=== PATIENT | female | born 1940 ===

== ENCOUNTER 2018-03-28 03:31 | Inpatient (IN) | payer OTHER, MEDICAID ==
[2018-03-28 03:44] VITALS: BMI 29.2
[2018-03-28] MEDS ORDERED: Labetalol 25mg/5ml Syringe IV STA (03:44)
[2018-03-28] MEDS ORDERED: Aspirin 325 mg EC Tablets PO STA (03:44)
[2018-03-28] MEDS ORDERED: Nitroglycerin 2% Ointment Foilpak UD TOP STA (03:44)
[2018-03-28] MEDS ORDERED: Nitroglycerin 2% Ointment Foilpak UD TOP ONE (03:47)
[2018-03-28] MEDS ORDERED: Labetalol 25mg/5ml Syringe ONE (03:47)
[2018-03-28 04:00] LABS: BASO # 0.1 K/uL (0.0-0.2); BASO % 1.1 % (0.0-2.0); EOS # 0.2 K/uL (0.0-0.7); EOS % 1.8 % (0.0-4.0); HEMOGLOBIN 11.2 g/dL (11.0-16.0); LYMPH # 3.4 K/uL (1.0-4.3); LYMPH % 26.9 % (20.0-40.0); MEAN CELL VOLUME 84.9 fL (81.0-99.0); MEAN CORPUSCULAR HEMOGLOBIN 27.8 pg (27.0-31.0); MEAN CORPUSCULAR HGB CONC 32.7 g/dL (33.0-37.0); MEAN PLATELET VOLUME 9.4 fL (7.2-11.7); MONO # 0.8 K/uL (0.0-0.8); MONO % 6.4 % (0.0-10.0); NEUT % 63.8 % (50.0-75.0); NRBC % 0.1 % (0.0-2.0); RBC 4.03 Mil/uL (3.80-5.20); WHITE BLOOD COUNT 12.6 K/uL (4.8-10.8)
[2018-03-28 04:04] LABS: INR 1.1; PROTHROMBIN TIME 12.1 SECONDS (9.7-12.2)
[2018-03-28 04:20] LABS: TROPONIN I 0.044 ng/mL (0.00-0.120)
--- NOTE | 2018-03-28 05:04 | C.PDOC ---
History Of Present Illness 77 year old female is brought in to the ED by EMS for evaluation of chest pressure, SOB. Patient immigrated from [place] last year and lost all medical follow up. Patient has a history of CABG unknown vessels. Patient has been getting medication refills by unknown means. Patient denies fever, chills, nausea, vomit, diarrhea, rash. Time Seen by Provider: 03/28/18 03:41 Chief Complaint (Nursing): Respiratory Distress History Per: Patient, EMS History/Exam Limitations: no limitations Onset/Duration Of Symptoms: Hrs Current Symptoms Are (Timing): Still Present Initiating Event: Upper Respiratory Illness Quality: Tightness Current Respiratory Medications: See Home Med List Recent travel outside of the [place]: No Additional History Per: Patient, EMS Past Medical History Reviewed: Historical Data, Nursing Documentation, Vital Signs Vital Signs: Last Vital Signs Temp 98.2 F 03/28/18 04:02 Pulse 65 03/28/18 05:14 Resp 16 03/28/18 05:14 BP 152/64 H 03/28/18 05:14 Pulse Ox 100 03/28/18 05:14 - Medical History PMH: HTN Denies: Chronic Kidney Disease Surgical History: CABG, Cholecystectomy Family History: States: Unknown Family Hx - Social History Hx Alcohol Use: No Hx Substance Use: No Review Of Systems Constitutional: Negative for: Fever, Chills Cardiovascular: Positive for: Chest Pain. Negative for: Palpitations Respiratory: Positive for: Shortness of Breath. Negative for: Cough Gastrointestinal: Negative for: Nausea, Vomiting, Abdominal Pain Skin: Negative for: Rash Neurological: Negative for: Weakness, Numbness Physical Exam - Physical Exam Appears: Non-toxic, No Acute Distress Skin: Normal Color, Warm, Dry Head: Atraumatic, Normacephalic Eye(s): bilateral: Normal Inspection Oral Mucosa: Moist Neck: Normal ROM, Supple Chest: Symmetrical Cardiovascular: Rhythm Regular, Murmur (systolic), No JVD Respiratory: Normal Breath Sounds, No Rales, No Rhonchi, No Wheezing Gastrointestinal/Abdominal: Soft, No Tenderness, No Guarding, No Rebound Back: No Paraspinal Tenderness Extremity: Normal ROM, No Tenderness, Pedal Edema (trace ), Capillary Refill (< 2 seconds) Pulses: Left Dorsalis Pedis: Normal, Right Dorsalis Pedis: Normal Neurological/Psych: Oriented x3, Normal Speech, Normal Cognition Gait: Steady ED Course And Treatment - Laboratory Results Result Diagrams: 03/28/18 03:55 03/28/18 03:55 Lab Interpretation: Abnormal (trop neg. bnp [id number]) ECG: Interpreted By Me ECG Rhythm: Sinus Rhythm, ST/T Changes (st depressions 4v-v6) ECG Interpretation: Abnormal Rate From EC (BPM) O2 Sat by Pulse Oximetry: 100 (ON RA) Pulse Ox Interpretation: Normal - Radiology CXR Interpretation: Yes: Cardiomegaly, Other (+CHF) Reevaluation Time: 05:02 Reassessment Condition: Improved - Physician Consult Information Outcome Of Conversation: 0500: d/w Dr. Menendez, Medicine Quality Director- ok for adm Medical Decision Making Medical Decision Making: hypertensive urgency vs uncontrolled htn, flash pulm edema, euvolemic CHF CABG lost to f/u since emigrating to [place] 1 yr ago. Disposition Doctor Will See Patient In The: Hospital Counseled Patient/Family Regarding: Studies Performed, Diagnosis - Disposition Disposition: HOSPITALIZED Disposition Time: 05:04 Condition: GOOD Forms: [employer] (Cameroonian) - Clinical Impression Clinical Impression: Congestive heart failure, Uncontrolled hypertension - Scribe Statement The provider has reviewed the documentation as recorded by the Scribe Ced Gerard All medical record entries made by the Scribe were at my direction and personally dictated by me. I have reviewed the chart and agree that the record accurately reflects my personal performance of the history, physical exam, medical decision making, and the department course for this patient. I have also personally directed, reviewed, and agree with the discharge instructions and disposition.
[2018-03-28 06:22] LABS: HDL CHOLESTEROL 28 mg/dL (30-70)
[2018-03-28 06:32] LABS: LDL CHOLESTEROL 148 mg/dL (0-129)
[2018-03-28] MEDS ORDERED: (Novolog) Insulin Aspart, Recombinant 100 u/ml 10 ml vial SC SCH (07:30)
--- NOTE | 2018-03-28 07:54 | RAD ---
Date of service: 03/28/2018 PROCEDURE: CHEST RADIOGRAPH, 1 VIEW HISTORY: SOB COMPARISON: None available. FINDINGS: LUNGS: No consolidation appreciated. Pulmonary vascular congestion-moderate PLEURA: No pneumothorax or pleural fluid seen. CARDIOVASCULAR: Cardiomegaly. Moderate pulmonary venous congestion. OSSEOUS STRUCTURES: Midline sternotomy. . VISUALIZED UPPER ABDOMEN: Normal. OTHER FINDINGS: None. IMPRESSION: CHF
[2018-03-28] MEDS: (Novolog) Insulin Aspart, Recombinant 100 u/ml 10 ml vial SC SCH ×4 (09:24→21:15)
[2018-03-28] MEDS ORDERED: Pantoprazole 20 mg EC Tab PO SCH (10:00)
[2018-03-28] MEDS ORDERED: Enoxaparin 40 mg Syringe SC SCH (10:00)
[2018-03-28 10:02] LABS: SQUAMOUS EPITHIAL < 1 /hpf (0-5); URINE BACTERIA RARE (<OCC); URINE BILIRUBIN NEGATIVE (NEGATIVE); URINE CLARITY Hazy (Clear); URINE COLOR Straw (YELLOW); URINE GLUCOSE (UA) NORMAL (Normal); URINE LEUKOCYTE ESTERASE NEG Leu/uL (Negative); URINE PROTEIN NEGATIVE (NEGATIVE); URINE UROBILINOGEN NORMAL mg/dL (0.2-1.0)
[2018-03-28 10:03] LABS: URINE BLOOD TRACE (NEGATIVE)
[2018-03-28] MEDS: Enoxaparin 30 mg Syringe SC SCH (14:44)
[2018-03-28 15:39] LABS: CK-MB 2.65 ng/mL (0.0-3.38)
[2018-03-28 15:59] LABS: TROPONIN I 0.736 ng/mL (0.00-0.120)
[2018-03-28 20:51] LABS: CK-MB 2.35 ng/mL (0.0-3.38); TROPONIN I 0.825 ng/mL (0.00-0.120)
--- NOTE | 2018-03-28 23:50 | CP.PCM.HP ---
History of Present Illness - History of Present Illness History of Present Illness: CC: chest pain History Of Present Illness 77 year old female with h/o HTN, Hyperlipidemia, CAD and CABG in past recently moved from [facility] is brought in to the ED by EMS for evaluation of chest pressure, SOB. Patient immigrated from [place] last year and lost all medical follow up. Patient has a history of CABG unknown vessels. Patient has been getting medication refills by unknown means. Patient denies fever, chills, nausea, vomit, diarrhea, rash. Present on Admission - Present on Admission Any Indicators Present on Admission: Yes Review of Systems - Review of Systems Systems not reviewed;Unavailable: Acuity of Condition - Constitutional Constitutional: Fatigue, Lethargy, Weakness - EENT Eyes: absent: As Per HPI, Blind Spots, Blurred Vision, Change in Vision, Decreased Night Vision, Diplopia, Discharge, Dry Eye, Exophthalmos, Floaters, Irritation, Itchy Eyes, Loss of Peripheral Vision, Pain, Photophobia, Requires Corrective Lenses, Sees Flashes, Spots in Vision, Tunnel Vision, Other Visual Disturbances, Loss of Vision, Other Nose/Mouth/Throat: absent: As Per HPI, Epistaxis, Nasal Congestion, Nasal Discharge, Nasal Obstruction, Nasal Trauma, Nose Pain, Post Nasal Drip, Sinus Pain, Sinus Pressure, Bleeding Gums, Change in Voice, Dental Pain, Dry Mouth, Dysphagia, Halitosis, Hoarsness, Lip Swelling, Mouth Lesions, Mouth Pain, Odynophagia, Sore Throat, Throat Swelling, Tongue Swelling, Facial Pain, Neck Pain, Neck Mass, Other - Cardiovascular Cardiovascular: Chest Pain, Orthopnea, Palpitations, Paroxysmal Nocturnal Dyspnea - Gastrointestinal Gastrointestinal: absent: As Per HPI, Abdominal Pain, Belching, Bloating, Change in Bowel Habits, Change in Stool Character, Coffee Ground Emesis, Constipation, Cramping, Diarrhea, Dyspepsia, Dysphagia, Early Satiety, Excessive Flatus, Fecal Incontinence, Heartburn, Hematemesis, Hematochezia, Loose Stools, Melena, Nausea, Odynophagia, Temesmus, Vomiting, Other - Genitourinary Genitourinary: absent: As Per HPI, Change in Urinary Stream, Difficulty Urinating, Dysuria, Flank Pain, Hematuria, Pyuria, Nocturia, Urinary Incontinence, Urinary Frequency, Urinary Hesitance, Urinary Urgency, Voiding Freq/Small Amts, Freq UTI, Hx Renal/Bladder Calculi, Hx /Renal Surgery, Bladder Distension, Other Past Patient History - Past Medical History & Family History Past Medical History?: Yes - Past Social History Smoking Status: Never Smoked - CARDIAC Hx Hypertension: Yes - PULMONARY Hx Respiratory Disorders: No - NEUROLOGICAL Hx Neurological Disorder: No - HEENT Hx HEENT Problems: No - RENAL Hx Chronic Kidney Disease: No - ENDOCRINE/METABOLIC Hx Endocrine Disorders: No Hx Diabetes Mellitus Type 2: Yes - HEMATOLOGICAL/ONCOLOGICAL Hx Blood Disorders: No - INTEGUMENTARY Hx Dermatological Problems: No - MUSCULOSKELETAL/RHEUMATOLOGICAL Hx Falls: No - GASTROINTESTINAL Hx Gastrointestinal Disorders: No - GENITOURINARY/GYNECOLOGICAL Hx Genitourinary Disorders: No - PSYCHIATRIC Hx Substance Use: No - SURGICAL HISTORY Hx Cholecystectomy: Yes Hx Coronary Artery Bypass Graft: Yes - ANESTHESIA Hx Anesthesia: Yes Hx Anesthesia Reactions: No Meds Allergies/Adverse Reactions: Allergies Allergy/AdvReac Type Severity Reaction Status Date / Time codeine Allergy Verified 03/28/18 03:54 Physical Exam - Constitutional Appears: No Acute Distress - Eye Exam Eye Exam: EOMI, Normal appearance, PERRL Pupil Exam: NORMAL ACCOMODATION, PERRL - ENT Exam ENT Exam: Mucous Membranes Moist, Normal Exam - Respiratory Exam Respiratory Exam: Clear to Auscultation Bilateral, NORMAL BREATHING PATTERN - Cardiovascular Exam Cardiovascular Exam: REGULAR RHYTHM, +S1, +S2 Additional comments: s3 positive - GI/Abdominal Exam GI & Abdominal Exam: Normal Bowel Sounds, Soft. absent: Tenderness Results - Vital Signs Recent Vital Signs: Last Vital Signs Temp 97.4 F L 03/28/18 16:00 Pulse 60 03/28/18 18:15 Resp 20 03/28/18 18:15 BP 143/98 H 03/28/18 18:15 Pulse Ox 100 03/28/18 18:15 - Labs Result Diagrams: 03/28/18 03:55 03/28/18 03:55 Labs: Laboratory Results - last 24 hr 03/28/18 03/28/18 03/28/18 03:41 03:55 03:55 WBC 12.6 H RBC 4.03 Hgb 11.2 Hct 34.2 MCV 84.9 MCH 27.8 MCHC 32.7 L RDW 16.0 H Plt Count 294 MPV 9.4 Neut % (Auto) 63.8 Lymph % (Auto) 26.9 [place] % (Auto) 6.4 Eos % (Auto) 1.8 Baso % (Auto) 1.1 Neut # (Auto) 8.0 H Lymph # (Auto) 3.4 [place] # (Auto) 0.8 Eos # (Auto) 0.2 Baso # (Auto) 0.1 PT 12.1 INR 1.1 APTT 33 Sodium Potassium Chloride Carbon Dioxide Anion Gap BUN Creatinine Est GFR ( Amer) Est GFR (Non-Af Amer) POC Glucose (mg/dL) 170 H Random Glucose Calcium Total Bilirubin AST ALT Alkaline Phosphatase Total Creatine Kinase CK-MB (Mass) Troponin I NT-Pro-B Natriuret Pep Total Protein Albumin Globulin Albumin/Globulin Ratio Triglycerides Cholesterol LDL Cholesterol Direct HDL Cholesterol Urine Color Urine Clarity Urine pH Ur Specific [place] Urine Protein Urine Glucose (UA) Urine Ketones Urine Blood Urine Nitrate Urine Bilirubin Urine Urobilinogen Ur Leukocyte Esterase Urine WBC (Auto) Urine RBC (Auto) Ur Squamous Epith Cells Urine Bacteria 03/28/18 03/28/18 03/28/18 03:55 05:59 08:07 WBC RBC Hgb Hct MCV MCH MCHC RDW Plt Count MPV Neut % (Auto) Lymph % (Auto) [place] % (Auto) Eos % (Auto) Baso % (Auto) Neut # (Auto) Lymph # (Auto) [place] # (Auto) Eos # (Auto) Baso # (Auto) PT INR APTT Sodium 141 Potassium 4.2 Chloride 101 Carbon Dioxide 27 Anion Gap 17 BUN 20 H Creatinine 1.9 H Est GFR ( Amer) 31 Est GFR (Non-Af Amer) 26 POC Glucose (mg/dL) 189 H Random Glucose 187 H Calcium 9.0 Total Bilirubin 0.5 AST 23 ALT 13 Alkaline Phosphatase 85 Total Creatine Kinase CK-MB (Mass) Troponin I 0.0440 NT-Pro-B Natriuret Pep 6710 H Total Protein 8.1 Albumin 4.0 Globulin 4.0 H Albumin/Globulin Ratio 1.0 Triglycerides 102 Cholesterol 205 H LDL Cholesterol Direct 148 H HDL Cholesterol 28 L Urine Color Urine Clarity Urine pH Ur Specific [place] Urine Protein Urine Glucose (UA) Urine Ketones Urine Blood Urine Nitrate Urine Bilirubin Urine Urobilinogen Ur Leukocyte Esterase Urine WBC (Auto) Urine RBC (Auto) Ur Squamous Epith Cells Urine Bacteria 03/28/18 03/28/18 03/28/18 09:53 11:56 14:44 WBC RBC Hgb Hct MCV MCH MCHC RDW Plt Count MPV Neut % (Auto) Lymph % (Auto) [place] % (Auto) Eos % (Auto) Baso % (Auto) Neut # (Auto) Lymph # (Auto) [place] # (Auto) Eos # (Auto) Baso # (Auto) PT INR APTT Sodium Potassium Chloride Carbon Dioxide Anion Gap BUN Creatinine Est GFR ( Amer) Est GFR (Non-Af Amer) POC Glucose (mg/dL) 272 H Random Glucose Calcium Total Bilirubin AST ALT Alkaline Phosphatase Total Creatine Kinase 70 CK-MB (Mass) 2.65 Troponin I 0.7360 H* NT-Pro-B Natriuret Pep Total Protein Albumin Globulin Albumin/Globulin Ratio Triglycerides Cholesterol LDL Cholesterol Direct HDL Cholesterol Urine Color Straw Urine Clarity Hazy Urine pH 5.0 Ur Specific [place] 1.004 Urine Protein Negative Urine Glucose (UA) Normal Urine Ketones Negative Urine Blood Trace H Urine Nitrate Negative Urine Bilirubin Negative Urine Urobilinogen Normal Ur Leukocyte Esterase Neg Urine WBC (Auto) 2 Urine RBC (Auto) 10 H Ur Squamous Epith Cells < 1 Urine Bacteria Rare 03/28/18 03/28/18 03/28/18 16:13 20:09 21:13 WBC RBC Hgb Hct MCV MCH MCHC RDW Plt Count MPV Neut % (Auto) Lymph % (Auto) [place] % (Auto) Eos % (Auto) Baso % (Auto) Neut # (Auto) Lymph # (Auto) [place] # (Auto) Eos # (Auto) Baso # (Auto) PT INR APTT Sodium Potassium Chloride Carbon Dioxide Anion Gap BUN Creatinine Est GFR ( Amer) Est GFR (Non-Af Amer) POC Glucose (mg/dL) 227 H 109 Random Glucose Calcium Total Bilirubin AST ALT Alkaline Phosphatase Total Creatine Kinase 73 CK-MB (Mass) 2.35 Troponin I 0.8250 H* NT-Pro-B Natriuret Pep Total Protein Albumin Globulin Albumin/Globulin Ratio Triglycerides Cholesterol LDL Cholesterol Direct HDL Cholesterol Urine Color Urine Clarity Urine pH Ur Specific [place] Urine Protein Urine Glucose (UA) Urine Ketones Urine Blood Urine Nitrate Urine Bilirubin Urine Urobilinogen Ur Leukocyte Esterase Urine WBC (Auto) Urine RBC (Auto) Ur Squamous Epith Cells Urine Bacteria Assessment & Plan (1) Acute [place] Assessment and Plan: positive acrdiac enzymes plavix, aspirin cardio eval Status: Acute (2) Congestive heart failure Status: Acute (3) Uncontrolled hypertension Status: Acute
[2018-03-29 06:27] LABS: BASO % 0.3 % (0.0-2.0); EOS # 0.4 K/uL (0.0-0.7); LYMPH # 2.5 K/uL (1.0-4.3); LYMPH % 26.2 % (20.0-40.0); MEAN CELL VOLUME 84.3 fL (81.0-99.0); MEAN CORPUSCULAR HGB CONC 33.2 g/dL (33.0-37.0); MEAN PLATELET VOLUME 9.5 fL (7.2-11.7); MONO # 0.9 K/uL (0.0-0.8); MONO % 9.1 % (0.0-10.0); NEUT # 5.7 K/uL (1.8-7.0); NEUT % 60.4 % (50.0-75.0); RBC 3.57 Mil/uL (3.80-5.20); RED CELL DISTRIBUTION WIDTH 16.1 % (11.5-14.5); WHITE BLOOD COUNT 9.5 K/uL (4.8-10.8)
[2018-03-29 06:59] LABS: ALB/GLOB RATIO 1.1 (1.0-2.1); ALBUMIN 3.5 g/dL (3.5-5.0); CALCIUM 8.8 mg/dl (8.6-10.4); CK-MB 1.57 ng/mL (0.0-3.38); TROPONIN I 0.638 ng/mL (0.00-0.120)
[2018-03-29] MEDS: (Novolog) Insulin Aspart, Recombinant 100 u/ml 10 ml vial SC SCH ×4 (08:18→21:47)
[2018-03-29] MEDS: Enoxaparin 30 mg Syringe SC SCH (09:08)
--- NOTE | 2018-03-29 12:08 | CARD ---
APPROVED REPORT Date of service: 03/28/2018 EKG Measurement Heart [id number] <Conclusion> Normal sinus rhythm ST & T wave abnormality, consider lateral ischemia Abnormal ECG
--- NOTE | 2018-03-29 12:12 | CP.PCM.CON ---
History of Present Illness - History of Present Illness History of Present Illness: 77 year old female with h/o HTN, Hyperlipidemia, CAD and CABG in past recently moved from [facility] is brought in to the ED by EMS for evaluation of chest pressure, SOB. Patient immigrated from [place] last year and lost all medical follow up. Patient has a history of CABG unknown vessels. Patient has been getting medication refills by unknown means. Patient denies fever, chills, nausea, vomit, diarrhea, rash. In the past patient also had STENT placed but date and vessel is not clear. Sittin in bed without any distress, Review of Systems - Constitutional Constitutional: As Per HPI - EENT Eyes: As Per HPI - Cardiovascular Cardiovascular: As Per HPI - Respiratory Respiratory: As Per HPI - Gastrointestinal Gastrointestinal: As Per HPI - Neurological Neurological: As Per HPI Past Patient History - Past Medical History & Family History Past Medical History?: Yes - Past Social History Smoking Status: Never Smoked - CARDIAC Hx Hypertension: Yes - PULMONARY Hx Respiratory Disorders: No - NEUROLOGICAL Hx Neurological Disorder: No - HEENT Hx HEENT Problems: No - RENAL Hx Chronic Kidney Disease: No - ENDOCRINE/METABOLIC Hx Endocrine Disorders: No Hx Diabetes Mellitus Type 2: Yes - HEMATOLOGICAL/ONCOLOGICAL Hx Blood Disorders: No - INTEGUMENTARY Hx Dermatological Problems: No - MUSCULOSKELETAL/RHEUMATOLOGICAL Hx Falls: No - GASTROINTESTINAL Hx Gastrointestinal Disorders: No - GENITOURINARY/GYNECOLOGICAL Hx Genitourinary Disorders: No - PSYCHIATRIC Hx Substance Use: No - SURGICAL HISTORY Hx Cholecystectomy: Yes Hx Coronary Artery Bypass Graft: Yes - ANESTHESIA Hx Anesthesia: Yes Hx Anesthesia Reactions: No Meds Allergies/Adverse Reactions: Allergies Allergy/AdvReac Type Severity Reaction Status Date / Time codeine Allergy Verified 03/28/18 03:54 - Medications Medications: Current Medications Acetaminophen (Tylenol 325mg Tab) 650 mg PO Q6 PRN PRN Reason: LEG CRAMPS Last Admin: 03/28/18 18:35 Dose: 650 mg Aspirin (Aspirin) 325 mg PO DAILY [facility] Last Admin: 03/29/18 09:08 Dose: 325 mg Enoxaparin Sodium (Lovenox) 30 mg SC DAILY [facility] Last Admin: 03/29/18 09:08 Dose: 30 mg Famotidine (Pepcid) 20 mg PO DAILY [facility] Last Admin: 03/29/18 09:08 Dose: 20 mg Furosemide (Lasix) 40 mg IVP DAILY [facility] Last Admin: 03/29/18 09:07 Dose: 40 mg Insulin Aspart (Novolog) 0 unit SC [facility] PRN Reason: Protocol Last Admin: 03/29/18 08:18 Dose: 2 u Losartan Potassium (Cozaar) 50 mg PO DAILY [facility] Last Admin: 03/29/18 09:08 Dose: 50 mg Metoprolol Tartrate (Lopressor) 25 mg PO DAILY [facility] Last Admin: 03/29/18 09:08 Dose: 25 mg Rosuvastatin Calcium (Crestor) 10 mg PO [facility] Last Admin: 03/28/18 21:15 Dose: 10 mg Physical Exam - Head Exam Head Exam: NORMOCEPHALIC - Neck Exam Neck exam: Positive for: Normal Inspection - Respiratory Exam Respiratory Exam: NORMAL BREATHING PATTERN - Cardiovascular Exam Cardiovascular Exam: REGULAR RHYTHM - GI/Abdominal Exam GI & Abdominal Exam: Soft - Extremities Exam Extremities exam: Positive for: normal inspection - Neurological Exam Neurological exam: Alert, Oriented x3 Results - Vital Signs Recent Vital Signs: Last Vital Signs Temp 97.9 F 03/29/18 08:00 Pulse 63 03/29/18 10:00 Resp 16 03/29/18 08:00 BP 161/72 H 03/29/18 09:08 Pulse Ox 100 03/29/18 08:00 - Labs Result Diagrams: 03/29/18 06:18 03/29/18 06:18 Labs: Laboratory Results - last 24 hr 03/28/18 03/28/18 03/28/18 14:44 16:13 20:09 WBC RBC Hgb Hct MCV MCH MCHC RDW Plt Count MPV Neut % (Auto) Lymph % (Auto) Leon % (Auto) Eos % (Auto) Baso % (Auto) Neut # (Auto) Lymph # (Auto) [place] # (Auto) Eos # (Auto) Baso # (Auto) Sodium Potassium Chloride Carbon Dioxide Anion Gap BUN Creatinine Est GFR ( Amer) Est GFR (Non-Af Amer) POC Glucose (mg/dL) 227 H Random Glucose Calcium Phosphorus Magnesium Total Bilirubin AST ALT Alkaline Phosphatase Total Creatine Kinase 70 73 CK-MB (Mass) 2.65 2.35 Troponin I 0.7360 H* 0.8250 H* Total Protein Albumin Globulin Albumin/Globulin Ratio 03/28/18 03/29/18 03/29/18 21:13 06:18 06:18 WBC 9.5 RBC 3.57 L Hgb 10.0 L Hct 30.1 L MCV 84.3 MCH 28.0 MCHC 33.2 RDW 16.1 H Plt Count 248 MPV 9.5 Neut % (Auto) 60.4 Lymph % (Auto) 26.2 Leon % (Auto) 9.1 Eos % (Auto) 4.0 Baso % (Auto) 0.3 Neut # (Auto) 5.7 Lymph # (Auto) 2.5 Leon # (Auto) 0.9 H Eos # (Auto) 0.4 Baso # (Auto) 0.0 Sodium 138 Potassium 4.6 Chloride 98 Carbon Dioxide 29 Anion Gap 15 BUN 26 H Creatinine 2.0 H Est GFR ( Amer) 29 Est GFR (Non-Af Amer) 24 POC Glucose (mg/dL) 109 Random Glucose 185 H Calcium 8.8 Phosphorus 4.1 Magnesium 2.1 Total Bilirubin 0.4 AST 14 D ALT 16 Alkaline Phosphatase 67 Total Creatine Kinase 53 CK-MB (Mass) 1.57 Troponin I 0.6380 H* Total Protein 6.8 Albumin 3.5 Globulin 3.3 Albumin/Globulin Ratio 1.1 03/29/18 08:01 WBC RBC Hgb Hct MCV MCH MCHC RDW Plt Count MPV Neut % (Auto) Lymph % (Auto) Leon % (Auto) Eos % (Auto) Baso % (Auto) Neut # (Auto) Lymph # (Auto) Leon # (Auto) Eos # (Auto) Baso # (Auto) Sodium Potassium Chloride Carbon Dioxide Anion Gap BUN Creatinine Est GFR ( Amer) Est GFR (Non-Af Amer) POC Glucose (mg/dL) 190 H Random Glucose Calcium Phosphorus Magnesium Total Bilirubin AST ALT Alkaline Phosphatase Total Creatine Kinase CK-MB (Mass) Troponin I Total Protein Albumin Globulin Albumin/Globulin Ratio Assessment & Plan (1) Acute [place] Assessment and Plan: Borderline troponin with renal insufficiency. Continue DAPT. Control BP. Will discuss with patient for further management. Status: Acute (2) Congestive heart failure Assessment and Plan: Most likely fluid overload. Echo preliminary, Mild LV systolic function. Watch for fluid overload. Fluid restriction to 1.5 L/D. D/C Lasix. Start HCTZ and Spironolactone. Status: Acute
--- NOTE | 2018-03-29 12:33 | CARD ---
APPROVED REPORT Date of service: 03/28/2018 EKG Measurement Heart [id number] <Conclusion> Normal sinus rhythm Possible Left atrial enlargement ST & T wave abnormality, consider lateral ischemia Abnormal ECG
--- NOTE | 2018-03-29 12:33 | CARD ---
APPROVED REPORT Date of service: 03/28/2018 EKG Measurement Heart [id number] 152P41 [id number] <Conclusion> Sinus bradycardia ST & T wave abnormality, lvhconsider lateral ischemia Abnormal ECG
--- NOTE | 2018-03-29 19:21 | CARD ---
APPROVED REPORT Date of service: 03/29/2018 EXAM: Two-dimensional and M-mode echocardiogram with Doppler and color Doppler. Other Information Quality : GoodRhythm : INDICATION POSITIVE TRONPONIN/ PA 2D DIMENSIONS IVSd1.5 (0.7-1.1cm)Aortic Root (2D)2.7 (2.0-3.7cm) LVDd5.1 (3.9-5.9cm)LVOT Diameter1.8 (1.8-2.4cm) PWd1.1 (0.7-1.1cm)LVDs4.2 (2.5-4.0cm) FS (%) 17.9 %LVEF (%)37.1 (>50%) M-Mode DIMENSIONS Left Atrium (MM)4.17 (2.5-4.0cm)IVSd0.85 (0.7-1.1cm) Aortic Root2.62 (2.2-3.7cm)LVDd5.89 (4.0-5.6cm) Aortic Cusp Exc.1.11 (1.5-2.0cm)PWd0.94 (0.7-1.1cm) FS (%) 14 %LVDs5.04 (2.0-3.8cm) LVEF (%)30 (>50%) Mitral Valve MV E Remvnqad489.0cm/sMV A Bpmbraqa71.0cm/sMV [id number] E/A ratio2.4MVA (PHT)1.93cm2 TDI E/Lateral E'0.0E/Medial E'0.0 Pulmonary Valve PV Peak Dyqzkprj67.2cm/sPV Peak Grad.4mmHg Tricuspid Valve TR Peak [id number]/sTR Peak Gr.53kzMyMGLF62vxLn <Conclusion> tds. poor window. lv & la is moderately dilated. mild to moderate concnetric lvh with overall lvef of 30-6-35%. inferoapical appears markedly hypokinetic.cad. moderate to severe degree of lv diastolic dysfunction. markedly increased la pressures. calcified mitral & aortic valve. 2-3 + mr,2 + tr with calculated pulmonary systolic pressures of 41 mm of hg,c/w mild pulmonary hypertension. normal size sclerotic aortic root. no pericardial effusion seen.
[2018-03-30 06:55] LABS: ALBUMIN 3.7 g/dL (3.5-5.0)
[2018-03-30 07:00] LABS: BASO % 0.3 % (0.0-2.0); EOS # 0.4 K/uL (0.0-0.7); EOS % 4.3 % (0.0-4.0); HEMOGLOBIN 10.6 g/dL (11.0-16.0); LYMPH # 2.5 K/uL (1.0-4.3); LYMPH % 24.6 % (20.0-40.0); MEAN CORPUSCULAR HEMOGLOBIN 27.4 pg (27.0-31.0); MEAN CORPUSCULAR HGB CONC 32.6 g/dL (33.0-37.0); MEAN PLATELET VOLUME 9.7 fL (7.2-11.7); MONO % 9.8 % (0.0-10.0); NEUT # 6.2 K/uL (1.8-7.0); NRBC % 0.3 % (0.0-2.0); RBC 3.87 Mil/uL (3.80-5.20); RED CELL DISTRIBUTION WIDTH 15.8 % (11.5-14.5); WHITE BLOOD COUNT 10.2 K/uL (4.8-10.8)
[2018-03-30] MEDS: (Novolog) Insulin Aspart, Recombinant 100 u/ml 10 ml vial SC SCH ×4 (08:01→21:54)
[2018-03-30] MEDS: Enoxaparin 30 mg Syringe SC SCH (09:31)
--- NOTE | 2018-03-30 15:06 | CP.PCM.PN ---
Subjective - Date & Time of Evaluation Date of Evaluation: 03/29/18 Time of Evaluation: 17:00 - Subjective Subjective: PT SEEN AND EXAMINED AT BEDSIDE Objective - Vital Signs/Intake and Output Vital Signs (last 24 hours): Temp Pulse Resp BP Pulse Ox 98.5 F 60 13 100/67 100 03/30/18 12:00 03/30/18 12:00 03/30/18 12:00 03/30/18 11:44 03/30/18 12:00 Intake and Output: 03/30/18 03/30/18 06:59 18:59 Intake Total 420 Output Total 650 Balance -230 - Medications Medications: Current Medications Acetaminophen (Tylenol 325mg Tab) 650 mg PO Q6 PRN PRN Reason: LEG CRAMPS Last Admin: 03/28/18 18:35 Dose: 650 mg Aspirin (Aspirin) 325 mg PO DAILY [facility] Last Admin: 03/30/18 09:31 Dose: 325 mg Clopidogrel Bisulfate (Plavix) 75 mg PO DAILY [facility] Last Admin: 03/30/18 09:31 Dose: 75 mg Enoxaparin Sodium (Lovenox) 30 mg SC DAILY [facility] Last Admin: 03/30/18 09:31 Dose: 30 mg Famotidine (Pepcid) 20 mg PO DAILY [facility] Last Admin: 03/30/18 09:31 Dose: 20 mg Hydrochlorothiazide (Microzide) 12.5 mg PO BID [facility] Last Admin: 03/30/18 09:31 Dose: 12.5 mg Insulin Aspart (Novolog) 0 unit SC ACHS [facility] PRN Reason: Protocol Last Admin: 03/30/18 12:00 Dose: 3 u Losartan Potassium (Cozaar) 50 mg PO DAILY [facility] Last Admin: 03/30/18 09:31 Dose: 50 mg Metoprolol Tartrate (Lopressor) 25 mg PO BID [facility] Last Admin: 03/30/18 09:26 Dose: Not Given Rosuvastatin Calcium (Crestor) 10 mg PO HS [facility] Last Admin: 03/29/18 21:49 Dose: 10 mg Spironolactone (Aldactone) 25 mg PO BID [facility] Last Admin: 03/30/18 09:31 Dose: 25 mg Zolpidem Tartrate (Ambien) 5 mg PO HS PRN PRN Reason: Insomnia Last Admin: 03/29/18 21:50 Dose: 5 mg - Labs Labs: 03/30/18 06:14 03/30/18 06:14 PT 12.1 SECONDS (9.7-12.2) 03/28/18 03:55 INR 1.1 03/28/18 03:55 APTT 33 SECONDS (21-34) 03/28/18 03:55 Assessment and Plan (1) Acute [place] Status: Acute (2) Congestive heart failure Status: Acute (3) Uncontrolled hypertension Status: Acute
--- NOTE | 2018-03-30 15:07 | CP.PCM.PN ---
Subjective - Date & Time of Evaluation Date of Evaluation: 03/29/18 Time of Evaluation: 18:00 - Subjective Subjective: PT seen and examined at bedside, Patient denies fever, chills, nausea, vomit, diarrhea, rash. In the past patient also had STENT placed but date and vessel is not clear. Objective - Vital Signs/Intake and Output Vital Signs (last 24 hours): Temp Pulse Resp BP Pulse Ox 98.5 F 60 13 100/67 100 03/30/18 12:00 03/30/18 12:00 03/30/18 12:00 03/30/18 11:44 03/30/18 12:00 Intake and Output: 03/30/18 03/30/18 06:59 18:59 Intake Total 420 Output Total 650 Balance -230 - Medications Medications: Current Medications Acetaminophen (Tylenol 325mg Tab) 650 mg PO Q6 PRN PRN Reason: LEG CRAMPS Last Admin: 03/28/18 18:35 Dose: 650 mg Aspirin (Aspirin) 325 mg PO DAILY [facility] Last Admin: 03/30/18 09:31 Dose: 325 mg Clopidogrel Bisulfate (Plavix) 75 mg PO DAILY [facility] Last Admin: 03/30/18 09:31 Dose: 75 mg Enoxaparin Sodium (Lovenox) 30 mg SC DAILY [facility] Last Admin: 03/30/18 09:31 Dose: 30 mg Famotidine (Pepcid) 20 mg PO DAILY [facility] Last Admin: 03/30/18 09:31 Dose: 20 mg Hydrochlorothiazide (Microzide) 12.5 mg PO BID [facility] Last Admin: 03/30/18 09:31 Dose: 12.5 mg Insulin Aspart (Novolog) 0 unit SC [facility] PRN Reason: Protocol Last Admin: 03/30/18 12:00 Dose: 3 u Losartan Potassium (Cozaar) 50 mg PO DAILY [facility] Last Admin: 03/30/18 09:31 Dose: 50 mg Metoprolol Tartrate (Lopressor) 25 mg PO BID [facility] Last Admin: 03/30/18 09:26 Dose: Not Given Rosuvastatin Calcium (Crestor) 10 mg PO HS [facility] Last Admin: 03/29/18 21:49 Dose: 10 mg Spironolactone (Aldactone) 25 mg PO BID [facility] Last Admin: 03/30/18 09:31 Dose: 25 mg Zolpidem Tartrate (Ambien) 5 mg PO HS PRN PRN Reason: Insomnia Last Admin: 03/29/18 21:50 Dose: 5 mg - Labs Labs: 03/30/18 06:14 03/30/18 06:14 PT 12.1 SECONDS (9.7-12.2) 03/28/18 03:55 INR 1.1 03/28/18 03:55 APTT 33 SECONDS (21-34) 03/28/18 03:55 Assessment and Plan (1) Acute [place] Status: Acute (2) Congestive heart failure Status: Acute (3) Uncontrolled hypertension Status: Acute
--- NOTE | 2018-03-30 16:44 | CP.PCM.PN ---
Subjective - Date & Time of Evaluation Date of Evaluation: 03/30/18 Time of Evaluation: 16:41 - Subjective Subjective: Still SOB of breath but no active chest pain. Objective - Vital Signs/Intake and Output Vital Signs (last 24 hours): Temp Pulse Resp BP Pulse Ox 97.5 F L 69 15 100/67 100 03/30/18 16:00 03/30/18 16:26 03/30/18 16:00 03/30/18 16:00 03/30/18 16:00 Intake and Output: 03/30/18 03/30/18 06:59 18:59 Intake Total 420 Output Total 650 Balance -230 - Medications Medications: Current Medications Acetaminophen (Tylenol 325mg Tab) 650 mg PO Q6 PRN PRN Reason: LEG CRAMPS Last Admin: 03/28/18 18:35 Dose: 650 mg Aspirin (Aspirin) 325 mg PO DAILY [facility] Last Admin: 03/30/18 09:31 Dose: 325 mg Clopidogrel Bisulfate (Plavix) 75 mg PO DAILY [facility] Last Admin: 03/30/18 09:31 Dose: 75 mg Enoxaparin Sodium (Lovenox) 30 mg SC DAILY [facility] Last Admin: 03/30/18 09:31 Dose: 30 mg Famotidine (Pepcid) 20 mg PO DAILY [facility] Last Admin: 03/30/18 09:31 Dose: 20 mg Hydrochlorothiazide (Microzide) 12.5 mg PO BID [facility] Last Admin: 03/30/18 09:31 Dose: 12.5 mg Insulin Aspart (Novolog) 0 unit SC A[facility]S [facility] PRN Reason: Protocol Last Admin: 03/30/18 12:00 Dose: 3 u Losartan Potassium (Cozaar) 50 mg PO DAILY [facility] Last Admin: 03/30/18 09:31 Dose: 50 mg Metoprolol Tartrate (Lopressor) 25 mg PO BID [facility] Last Admin: 03/30/18 09:26 Dose: Not Given Rosuvastatin Calcium (Crestor) 10 mg PO HS [facility] Last Admin: 03/29/18 21:49 Dose: 10 mg Spironolactone (Aldactone) 25 mg PO BID [facility] Last Admin: 03/30/18 09:31 Dose: 25 mg Zolpidem Tartrate (Ambien) 5 mg PO HS PRN PRN Reason: Insomnia Last Admin: 03/29/18 21:50 Dose: 5 mg - Labs Labs: 03/30/18 06:14 03/30/18 06:14 PT 12.1 SECONDS (9.7-12.2) 03/28/18 03:55 INR 1.1 03/28/18 03:55 APTT 33 SECONDS (21-34) 03/28/18 03:55 - Head Exam Head Exam: NORMOCEPHALIC - Neck Exam Neck Exam: Normal Inspection - Respiratory Exam Respiratory Exam: NORMAL BREATHING PATTERN - Cardiovascular Exam Cardiovascular Exam: REGULAR RHYTHM - Neurological Exam Neurological Exam: Alert, Oriented x3 Assessment and Plan (1) Acute [place] Assessment & Plan: Troponin trending down.Continue DAPT. She [place] [facility] will review before further recommendations. Status: Acute (2) Congestive heart failure Assessment & Plan: Improved. Hold diuretics for now as creatinine is rending up. Echo report reviewed. Discussed with team. Status: Acute
[2018-03-31] MEDS: (Novolog) Insulin Aspart, Recombinant 100 u/ml 10 ml vial SC SCH ×4 (08:08→22:00)
[2018-03-31] MEDS: Enoxaparin 30 mg Syringe SC SCH (09:35)
--- NOTE | 2018-03-31 14:42 | CP.PCM.PN ---
Subjective - Date & Time of Evaluation Date of Evaluation: 03/31/18 Time of Evaluation: 14:37 - Subjective Subjective: Feeling better, No chest pain or SOB. Objective - Vital Signs/Intake and Output Vital Signs (last 24 hours): Temp Pulse Resp BP Pulse Ox 97.6 F 52 L 18 129/55 L 99 03/31/18 12:00 03/31/18 12:00 03/31/18 12:00 03/31/18 12:00 03/31/18 12:00 Intake and Output: 03/31/18 03/31/18 06:59 18:59 Intake Total 380 Output Total 550 Balance -170 - Medications Medications: Current Medications Acetaminophen (Tylenol 325mg Tab) 650 mg PO Q6 PRN PRN Reason: LEG CRAMPS Last Admin: 03/31/18 09:40 Dose: 650 mg Aspirin (Aspirin) 325 mg PO DAILY [facility] Last Admin: 03/31/18 09:35 Dose: 325 mg Clopidogrel Bisulfate (Plavix) 75 mg PO DAILY [facility] Last Admin: 03/31/18 09:35 Dose: 75 mg Enoxaparin Sodium (Lovenox) 30 mg SC DAILY [facility] Last Admin: 03/31/18 09:35 Dose: 30 mg Famotidine (Pepcid) 20 mg PO DAILY [facility] Last Admin: 03/31/18 09:35 Dose: 20 mg Hydrochlorothiazide (Microzide) 12.5 mg PO BID [facility] Last Admin: 03/31/18 09:35 Dose: 12.5 mg Insulin Aspart (Novolog) 0 unit SC ACHS [facility] PRN Reason: Protocol Last Admin: 03/31/18 11:56 Dose: 2 u Losartan Potassium (Cozaar) 50 mg PO DAILY [facility] Last Admin: 03/31/18 09:35 Dose: 50 mg Metoprolol Tartrate (Lopressor) 25 mg PO BID [facility] Last Admin: 03/31/18 09:36 Dose: 25 mg Rosuvastatin Calcium (Crestor) 10 mg PO HS [facility] Last Admin: 03/30/18 21:52 Dose: 10 mg Zolpidem Tartrate (Ambien) 5 mg PO HS PRN PRN Reason: Insomnia Last Admin: 03/30/18 21:52 Dose: 5 mg - Labs Labs: 03/30/18 06:14 03/30/18 06:14 PT 12.1 SECONDS (9.7-12.2) 03/28/18 03:55 INR 1.1 03/28/18 03:55 APTT 33 SECONDS (21-34) 03/28/18 03:55 - Head Exam Head Exam: NORMOCEPHALIC - Neck Exam Neck Exam: Normal Inspection - Respiratory Exam Respiratory Exam: NORMAL BREATHING PATTERN - Cardiovascular Exam Cardiovascular Exam: REGULAR RHYTHM - Extremities Exam Extremities Exam: Normal Inspection - Neurological Exam Neurological Exam: Alert, Oriented x3 Assessment and Plan (1) Acute [place] Assessment & Plan: ACS, no new symptoms at this time. Plan for right and left heart cath in AM. Keep NPO after mid night and check labs in AM. Discuss with SON in detail about the procedure and future management. Status: Acute (2) Congestive heart failure Assessment & Plan: Hold Diuretics for now and check in AM. Status: Acute
--- NOTE | 2018-03-31 23:31 | CP.PCM.PN ---
Subjective - Date & Time of Evaluation Date of Evaluation: 03/31/18 Time of Evaluation: 19:45 - Subjective Subjective: Pt is seen and examined, is for cardiac cath, on Iv hydration, no chest pain, shortness of breath, afebrile Objective - Vital Signs/Intake and Output Vital Signs (last 24 hours): Temp Pulse Resp BP Pulse Ox 97.6 F 55 L 14 137/33 L 96 03/31/18 20:00 03/31/18 22:00 03/31/18 22:00 03/31/18 20:57 03/31/18 20:00 Intake and Output: 03/31/18 04/01/18 18:59 06:59 Intake Total 400 240 Output Total 600 Balance -200 240 - Medications Medications: Current Medications Acetaminophen (Tylenol 325mg Tab) 650 mg PO Q6 PRN PRN Reason: LEG CRAMPS Last Admin: 03/31/18 09:40 Dose: 650 mg Aspirin (Aspirin) 325 mg PO DAILY [facility] Last Admin: 03/31/18 09:35 Dose: 325 mg Clopidogrel Bisulfate (Plavix) 75 mg PO DAILY [facility] Last Admin: 03/31/18 09:35 Dose: 75 mg Enoxaparin Sodium (Lovenox) 30 mg SC DAILY [facility] Last Admin: 03/31/18 09:35 Dose: 30 mg Famotidine (Pepcid) 20 mg PO DAILY [facility] Last Admin: 03/31/18 09:35 Dose: 20 mg Hydrochlorothiazide (Microzide) 12.5 mg PO BID [facility] Last Admin: 03/31/18 18:01 Dose: 12.5 mg Sodium Chloride (Sodium Chloride 0.9%) 1,000 mls @ 50 mls/hr IV .Q20H [facility] Insulin Aspart (Novolog) 0 unit SC ACHS [facility] PRN Reason: Protocol Last Admin: 03/31/18 16:26 Dose: 3 u Losartan Potassium (Cozaar) 50 mg PO DAILY [facility] Last Admin: 03/31/18 09:35 Dose: 50 mg Metoprolol Tartrate (Lopressor) 25 mg PO BID [facility] Last Admin: 03/31/18 18:02 Dose: Not Given Ondansetron HCl (Zofran Inj) 4 mg IVP Q6 PRN PRN Reason: Nausea/Vomiting Last Admin: 03/31/18 16:51 Dose: 4 mg Rosuvastatin Calcium (Crestor) 10 mg PO HS [facility] Last Admin: 03/31/18 21:29 Dose: 10 mg Zolpidem Tartrate (Ambien) 5 mg PO HS PRN PRN Reason: Insomnia Last Admin: 03/30/18 21:52 Dose: 5 mg - Labs Labs: 03/30/18 06:14 03/30/18 06:14 PT 12.1 SECONDS (9.7-12.2) 03/28/18 03:55 INR 1.1 03/28/18 03:55 APTT 33 SECONDS (21-34) 03/28/18 03:55 - Constitutional Appears: No Acute Distress - Eye Exam Eye Exam: EOMI, Normal appearance, PERRL Pupil Exam: NORMAL ACCOMODATION, PERRL - ENT Exam ENT Exam: Mucous Membranes Moist, Normal Exam - Respiratory Exam Respiratory Exam: Clear to Ausculation Bilateral, NORMAL BREATHING PATTERN - Cardiovascular Exam Cardiovascular Exam: REGULAR RHYTHM, +S1, +S2. absent: Murmur - GI/Abdominal Exam GI & Abdominal Exam: Soft, Normal Bowel Sounds. absent: Tenderness Assessment and Plan (1) Acute [place] Status: Acute (2) Congestive heart failure Status: Acute (3) Uncontrolled hypertension Status: Acute
[2018-04-01] MEDS ORDERED: Sodium Chloride 0.9% 1,000 ML IV SCH (00:01)
[2018-04-01 06:19] LABS: HEMOGLOBIN 10.6 g/dL (11.0-16.0); MEAN CELL VOLUME 85.2 fL (81.0-99.0); MEAN CORPUSCULAR HGB CONC 32.8 g/dL (33.0-37.0); MEAN PLATELET VOLUME 9.6 fL (7.2-11.7); RBC 3.8 Mil/uL (3.80-5.20); RED CELL DISTRIBUTION WIDTH 15.7 % (11.5-14.5); WHITE BLOOD COUNT 9.7 K/uL (4.8-10.8)
[2018-04-01 06:21] LABS: INR 1.1; PROTHROMBIN TIME 12.3 SECONDS (9.7-12.2)
[2018-04-01 06:32] LABS: CALCIUM 8.9 mg/dl (8.6-10.4)
[2018-04-01] MEDS: (Novolog) Insulin Aspart, Recombinant 100 u/ml 10 ml vial SC SCH ×4 (08:00→21:16)
[2018-04-01] MEDS ORDERED: Lidocaine 2% MPF (5 ml) Inj ONE (08:40)
[2018-04-01] MEDS ORDERED: Heparin 0 ML IV ONE (08:41)
--- NOTE | 2018-04-01 10:52 | CP.PCM.PN ---
Subjective - Date & Time of Evaluation Date of Evaluation: 04/01/18 Time of Evaluation: 10:46 - Subjective Subjective: Sitting in the chair with family. No chest pain. Objective - Vital Signs/Intake and Output Vital Signs (last 24 hours): Temp Pulse Resp BP Pulse Ox 97.9 F 54 L 13 140/44 L 99 04/01/18 04:00 04/01/18 04:00 04/01/18 04:00 04/01/18 04:00 04/01/18 04:00 Intake and Output: 04/01/18 04/01/18 06:59 18:59 Intake Total 590 Output Total 700 Balance -110 - Medications Medications: Current Medications Acetaminophen (Tylenol 325mg Tab) 650 mg PO Q6 PRN PRN Reason: LEG CRAMPS Last Admin: 03/31/18 09:40 Dose: 650 mg Aspirin (Aspirin) 325 mg PO DAILY [facility] Last Admin: 03/31/18 09:35 Dose: 325 mg Clopidogrel Bisulfate (Plavix) 75 mg PO DAILY [facility] Last Admin: 03/31/18 09:35 Dose: 75 mg Enoxaparin Sodium (Lovenox) 30 mg SC DAILY [facility] Last Admin: 03/31/18 09:35 Dose: 30 mg Famotidine (Pepcid) 20 mg PO DAILY [facility] Last Admin: 03/31/18 09:35 Dose: 20 mg Hydrochlorothiazide (Microzide) 12.5 mg PO BID [facility] Last Admin: 03/31/18 18:01 Dose: 12.5 mg Sodium Chloride (Sodium Chloride 0.9%) 1,000 mls @ 50 mls/hr IV .Q20H [facility] Last Admin: 04/01/18 00:00 Dose: 50 mls/hr Insulin Aspart (Novolog) 0 unit SC [facility] PRN Reason: Protocol Last Admin: 03/31/18 22:00 Dose: Not Given Losartan Potassium (Cozaar) 50 mg PO DAILY [facility] Last Admin: 03/31/18 09:35 Dose: 50 mg Metoprolol Tartrate (Lopressor) 25 mg PO BID [facility] Last Admin: 03/31/18 18:02 Dose: Not Given Ondansetron HCl (Zofran Inj) 4 mg IVP Q6 PRN PRN Reason: Nausea/Vomiting Last Admin: 03/31/18 16:51 Dose: 4 mg Rosuvastatin Calcium (Crestor) 10 mg PO HS [facility] Last Admin: 03/31/18 21:29 Dose: 10 mg Zolpidem Tartrate (Ambien) 5 mg PO HS PRN PRN Reason: Insomnia Last Admin: 04/01/18 01:29 Dose: 5 mg - Labs Labs: 04/01/18 06:09 04/01/18 06:09 PT 12.3 SECONDS (9.7-12.2) H 04/01/18 06:09 INR 1.1 04/01/18 06:09 APTT 33 SECONDS (21-34) 03/28/18 03:55 - Head Exam Head Exam: NORMOCEPHALIC - Neck Exam Neck Exam: Normal Inspection - Cardiovascular Exam Cardiovascular Exam: REGULAR RHYTHM, Murmur Additional comments: Systolic murmur. - Extremities Exam Extremities Exam: Normal Inspection - Neurological Exam Neurological Exam: Alert, Oriented x3 Assessment and Plan (1) Acute [place] Assessment & Plan: Symptoms controllled with current regimen. Creatinine is trending up. Hold cardiac cath for now. Discussed wit son and pateiny as she is diabetic with lL V systolic dysfunction, there is high risk of contrast nepropathy. Continue DAPT for now. Status: Acute (2) Congestive heart failure Assessment & Plan: Significant improvement. Hold Diuretics for now. Continue other care. Plan discussed with staff. Status: Acute
[2018-04-01] MEDS: Enoxaparin 30 mg Syringe SC SCH (11:00)
--- NOTE | 2018-04-01 17:30 | CP.PCM.CON ---
History of Present Illness - History of Present Illness History of Present Illness: Podiatry Consult Note - Dr. Araya 77 y/o female with PMHx of CAD, CABG, HTN and HLD seen at bedside in ICU in regards to right foot 1st and 2nd toe pinpoint lesions and pain with bilateral leg cramping. Pt resting comfortably in bed at time of visit with her son at bedside. She states that she gets a lot of pain in the right foot 1st and 2nd toes. She also states she cannot walk even short distances without getting cramps in the legs. Denies any history of foot ulcerations or infections. Denies numbness, tingling or burning in the lower extremities. Admits that she came to the hospital for CP with SOB. Denies F/C/N/V but admits that the legs and feet get cold. PSH: CABG, cholecystectomy ALL: codeine SocHx: lives with son who is rug setter velvet Review of Systems - Review of Systems All systems: reviewed and no additional remarkable complaints except (per HPI) Past Patient History - Past Medical History & Family History Past Medical History?: Yes - Past Social History Smoking Status: Never Smoked - CARDIAC Hx Hypertension: Yes - PULMONARY Hx Respiratory Disorders: No - NEUROLOGICAL Hx Neurological Disorder: No - HEENT Hx HEENT Problems: No - RENAL Hx Chronic Kidney Disease: No - ENDOCRINE/METABOLIC Hx Endocrine Disorders: No Hx Diabetes Mellitus Type 2: Yes - HEMATOLOGICAL/ONCOLOGICAL Hx Blood Disorders: No - INTEGUMENTARY Hx Dermatological Problems: No - MUSCULOSKELETAL/RHEUMATOLOGICAL Hx Falls: No - GASTROINTESTINAL Hx Gastrointestinal Disorders: No - GENITOURINARY/GYNECOLOGICAL Hx Genitourinary Disorders: No - PSYCHIATRIC Hx Substance Use: No - SURGICAL HISTORY Hx Cholecystectomy: Yes Hx Coronary Artery Bypass Graft: Yes - ANESTHESIA Hx Anesthesia: Yes Hx Anesthesia Reactions: No Meds Allergies/Adverse Reactions: Allergies Allergy/AdvReac Type Severity Reaction Status Date / Time codeine Allergy Verified 03/28/18 03:54 - Medications Medications: Current Medications Acetaminophen (Tylenol 325mg Tab) 650 mg PO Q6 PRN PRN Reason: LEG CRAMPS Last Admin: 03/31/18 09:40 Dose: 650 mg Aspirin (Aspirin) 325 mg PO DAILY [facility] Last Admin: 04/01/18 11:00 Dose: 325 mg Clopidogrel Bisulfate (Plavix) 75 mg PO DAILY [facility] Last Admin: 04/01/18 11:00 Dose: 75 mg Enoxaparin Sodium (Lovenox) 30 mg SC DAILY [facility] Last Admin: 04/01/18 11:00 Dose: 30 mg Famotidine (Pepcid) 20 mg PO DAILY [facility] Last Admin: 04/01/18 11:00 Dose: 20 mg Insulin Aspart (Novolog) 0 unit SC [facility]S [facility] PRN Reason: Protocol Last Admin: 04/01/18 16:12 Dose: 2 u Losartan Potassium (Cozaar) 50 mg PO DAILY [facility] Last Admin: 04/01/18 11:00 Dose: 50 mg Metoprolol Tartrate (Lopressor) 25 mg PO BID [facility] Last Admin: 04/01/18 11:00 Dose: Not Given Ondansetron HCl (Zofran Inj) 4 mg IVP Q6 PRN PRN Reason: Nausea/Vomiting Last Admin: 03/31/18 16:51 Dose: 4 mg Rosuvastatin Calcium (Crestor) 10 mg PO HS [facility] Last Admin: 03/31/18 21:29 Dose: 10 mg Zolpidem Tartrate (Ambien) 5 mg PO HS PRN PRN Reason: Insomnia Last Admin: 04/01/18 01:29 Dose: 5 mg Physical Exam - Constitutional Appears: Well, Non-toxic, No Acute Distress - Extremities Exam Additional comments: Lower extremity focused exam: Vasc: DP/PT pulses faintly palpable 1/4 B/L. Temperature gradient warm to cold B /L. No pedal edema noted. Skin is thin and shiny. Derm: Pinpoint ischemic lesions noted to plantar aspects of 1st and 2nd digits R foot. No open lesions, no erythema, no ecchymosis. Neuro: Protective sensation grossly intact Ortho: moderate tenderness to palpation of right foot 1st and 2nd toes. No posterior calf tenderness B/L - Neurological Exam Neurological exam: Alert, Oriented x3 - Psychiatric Exam Psychiatric exam: Normal Affect, Normal Mood Results - Vital Signs Recent Vital Signs: Last Vital Signs Temp 97.7 F 04/01/18 12:00 Pulse 55 L 04/01/18 10:00 Resp 18 04/01/18 10:00 BP 150/65 04/01/18 08:15 Pulse Ox 100 04/01/18 12:00 - Labs Result Diagrams: 04/02/18 07:31 04/02/18 06:31 Labs: Laboratory Results - last 24 hr 03/31/18 04/01/18 04/01/18 21:08 06:09 06:09 WBC 9.7 RBC 3.80 Hgb 10.6 L Hct 32.4 L MCV 85.2 MCH 28.0 MCHC 32.8 L RDW 15.7 H Plt Count 267 MPV 9.6 PT 12.3 H INR 1.1 Sodium Potassium Chloride Carbon Dioxide Anion Gap BUN Creatinine Est GFR ( Amer) Est GFR (Non-Af Amer) POC Glucose (mg/dL) 268 H Random Glucose Calcium 04/01/18 04/01/18 04/01/18 06:09 11:41 16:07 WBC RBC Hgb Hct MCV MCH MCHC RDW Plt Count MPV PT INR Sodium 135 Potassium 4.9 Chloride 97 L Carbon Dioxide 30 Anion Gap 14 BUN 42 H Creatinine 2.1 H Est GFR ( Amer) 28 Est GFR (Non-Af Amer) 23 POC Glucose (mg/dL) 163 H 158 H Random Glucose 156 H Calcium 8.9 Assessment & Plan - Assessment and Plan (Free Text) Assessment: 77 y/o female with bilateral leg cramping and right foot 1st and 2nd digit toe pain, likely secondary to peripheral vascular disease Plan Pt seen and evaluated at bedside in ICU Discussed plan with attending Dr. Araya Arterial duplex studies ordered to evaluate LE circulation Will continue to follow patient
--- NOTE | 2018-04-02 00:18 | PQF ---
PROVIDER RESPONSE TEXT: Systolic REVIEWER QUERY TEXT: CHF Acuity and Type Congestive Heart Failure is documented in the Medical Record. Please document the type and acuity (in cludes probable or suspected) Such as: Type: -- Systolic -- Diastolic -- Combined -- Other, please specify Acuity: -- Acute -- Chronic -- Acute on chronic -- Other, please specify Also please document the underlying cause of the CHF (includes probable or suspected) The patient's Clinical Indicators include: ?77 year old female with h/o HTN, Hyperlipidemia, CAD and CABG is brought in to the ED by EM S for evaluation of chest pressure, SOB?. PE: Respiratory: Positive for: Shortness of Breath. Cardiovascular: Rhythm Regular, Murmur (systolic), No JVD. Extremities: Pedal Edema. BUN: 20 - Crea: 1.9 - GFR: BNP: 6710 ECHO 03/29/18: Mild to moderate concentric LVH with overall LVEF of 30-6-35%. Inferoapical appears markedly hypokinetic. cad. Moderate to severe degree of LV diastolic dysfunction. Markedly increased LA pressures. Please consider verify and document the specificity as below, if agree. Query created by: Brown Lopes on 04/01/2018 6:57 PM Electronically signed by: Dillan Menendez MD 04/02/2018 12:15 AM
[2018-04-02 06:51] LABS: ALBUMIN 3.8 g/dL (3.5-5.0); CALCIUM 9.1 mg/dl (8.6-10.4)
[2018-04-02 07:38] LABS: BASO % 0.4 % (0.0-2.0); EOS # 0.3 K/uL (0.0-0.7); EOS % 2.8 % (0.0-4.0); LYMPH # 2.5 K/uL (1.0-4.3); MEAN CELL VOLUME 83.7 fL (81.0-99.0); MEAN CORPUSCULAR HGB CONC 33.5 g/dL (33.0-37.0); MEAN PLATELET VOLUME 9.1 fL (7.2-11.7); MONO % 9.8 % (0.0-10.0); NEUT # 6.4 K/uL (1.8-7.0); RBC 3.92 Mil/uL (3.80-5.20); RED CELL DISTRIBUTION WIDTH 15.6 % (11.5-14.5); WHITE BLOOD COUNT 10.2 K/uL (4.8-10.8)
[2018-04-02] MEDS: (Novolog) Insulin Aspart, Recombinant 100 u/ml 10 ml vial SC SCH ×4 (08:00→22:00)
[2018-04-02] MEDS: Enoxaparin 30 mg Syringe SC SCH (09:08)
--- NOTE | 2018-04-02 09:31 | CP.PCM.PN ---
<Esteban Araya - Last Filed: 04/02/18 09:31> Subjective - Date & Time of Evaluation Date of Evaluation: 04/02/18 Time of Evaluation: :31 Objective - Vital Signs/Intake and Output Vital Signs (last 24 hours): Temp Pulse Resp BP Pulse Ox 97.5 F L 55 L 10 L 153/100 H 99 04/02/18 04:00 04/02/18 07:20 04/02/18 04:03 04/02/18 09:13 04/02/18 04:03 Intake and Output: 04/02/18 04/02/18 06:59 18:59 Intake Total 240 Output Total 1000 Balance -760 - Medications Medications: Current Medications Acetaminophen (Tylenol 325mg Tab) 650 mg PO Q6 PRN PRN Reason: LEG CRAMPS Last Admin: 03/31/18 09:40 Dose: 650 mg Aspirin (Aspirin) 325 mg PO DAILY [facility] Last Admin: 04/02/18 09:07 Dose: 325 mg Clopidogrel Bisulfate (Plavix) 75 mg PO DAILY [facility] Last Admin: 04/02/18 09:08 Dose: 75 mg Enoxaparin Sodium (Lovenox) 30 mg SC DAILY [facility] Last Admin: 04/02/18 09:08 Dose: 30 mg Famotidine (Pepcid) 20 mg PO DAILY [facility] Last Admin: 04/02/18 09:08 Dose: 20 mg Insulin Aspart (Novolog) 0 unit SC A[facility]S [facility] PRN Reason: Protocol Last Admin: 04/02/18 08:00 Dose: Not Given Losartan Potassium (Cozaar) 50 mg PO DAILY [facility] Last Admin: 04/02/18 09:07 Dose: 50 mg Metoprolol Tartrate (Lopressor) 25 mg PO BID [facility] Last Admin: 04/02/18 09:13 Dose: 25 mg Ondansetron HCl (Zofran Inj) 4 mg IVP Q6 PRN PRN Reason: Nausea/Vomiting Last Admin: 03/31/18 16:51 Dose: 4 mg Rosuvastatin Calcium (Crestor) 10 mg PO HS [facility] Last Admin: 04/01/18 21:16 Dose: 10 mg Zolpidem Tartrate (Ambien) 5 mg PO HS PRN PRN Reason: Insomnia Last Admin: 04/01/18 22:11 Dose: 5 mg - Labs Labs: 04/02/18 07:31 04/02/18 06:31 PT 12.3 SECONDS (9.7-12.2) H 04/01/18 06:09 INR 1.1 04/01/18 06:09 APTT 33 SECONDS (21-34) 03/28/18 03:55 <Viviana Fletcher - Last Filed: 04/02/18 13:54> Subjective - Subjective Subjective: 77 y/o female seen in ICU this morning with attending Dr. Araya for bilateral leg cramping and right foot 1st and 2nd digit pain. Pt's son says she had the tests done to check her blood flow to the lower extremities. Pt continues to report pain in the toes of the right foot and states the cramps in her legs come when she walks even short distances. Denies any other pedal complaints. Denies F/C/N/V. Objective - Vital Signs/Intake and Output Vital Signs (last 24 hours): Temp Pulse Resp BP Pulse Ox 97.7 F 56 L 11 L 142/67 98 04/02/18 12:00 04/02/18 10:00 04/02/18 10:00 04/02/18 12:01 04/02/18 06:00 Intake and Output: 04/02/18 04/02/18 06:59 18:59 Intake Total 240 Output Total 1000 Balance -760 - Medications Medications: Current Medications Acetaminophen (Tylenol 325mg Tab) 650 mg PO Q6 PRN PRN Reason: LEG CRAMPS Last Admin: 03/31/18 09:40 Dose: 650 mg Aspirin (Aspirin) 325 mg PO DAILY [facility] Last Admin: 04/02/18 09:07 Dose: 325 mg Clopidogrel Bisulfate (Plavix) 75 mg PO DAILY [facility] Last Admin: 04/02/18 09:08 Dose: 75 mg Enoxaparin Sodium (Lovenox) 30 mg SC DAILY [facility] Last Admin: 04/02/18 09:08 Dose: 30 mg Famotidine (Pepcid) 20 mg PO DAILY [facility] Last Admin: 04/02/18 09:08 Dose: 20 mg Furosemide (Lasix) 20 mg PO DAILY [facility] Last Admin: 04/02/18 12:01 Dose: 20 mg Hydralazine HCl (Apresoline) 25 mg PO Q8 [facility] Insulin Aspart (Novolog) 0 unit SC [facility] PRN Reason: Protocol Last Admin: 04/02/18 12:00 Dose: 6 u Metoprolol Tartrate (Lopressor) 25 mg PO BID [facility] Last Admin: 04/02/18 09:13 Dose: 25 mg Ondansetron HCl (Zofran Inj) 4 mg IVP Q6 PRN PRN Reason: Nausea/Vomiting Last Admin: 03/31/18 16:51 Dose: 4 mg Rosuvastatin Calcium (Crestor) 10 mg PO HS [facility] Last Admin: 04/01/18 21:16 Dose: 10 mg Zolpidem Tartrate (Ambien) 5 mg PO HS PRN PRN Reason: Insomnia Last Admin: 04/01/18 22:11 Dose: 5 mg - Labs Labs: 04/02/18 07:31 04/02/18 06:31 PT 12.3 SECONDS (9.7-12.2) H 04/01/18 06:09 INR 1.1 04/01/18 06:09 APTT 33 SECONDS (21-34) 03/28/18 03:55 - Constitutional Appears: Well, Non-toxic, No Acute Distress - Extremities Exam Additional comments: Lower extremity focused exam: Vasc: DP/PT pulses faintly palpable 1/4 B/L. Temperature gradient warm to cold B /L. No pedal edema noted. Skin is thin and shiny. Derm: Pinpoint ischemic lesions noted to plantar aspects of 1st and 2nd digits R foot. No open lesions, no erythema, no ecchymosis. Neuro: Protective sensation grossly intact Ortho: moderate tenderness to palpation of right foot 1st and 2nd toes. No posterior calf tenderness B/L - Neurological Exam Neurological Exam: Alert, Awake, Oriented x3 - Psychiatric Exam Psychiatric exam: Normal Affect, Normal Mood Assessment and Plan - Assessment and Plan (Free Text) Assessment: 77 y/o female with bilateral leg cramping and right foot 1st and 2nd digit toe pain, likely secondary to peripheral vascular disease Plan Pt seen and evaluated at bedside in ICU with attending Dr. Araya Arterial duplex studies reveal severely decreased arterial perfusion to RLE with KE of 0.37; moderately decreased perfusion on LLE with KE of 0.57 Vascular team consulted for possible vascular intervention - recommendations appreciated Will continue to follow patient
--- NOTE | 2018-04-02 11:57 | VASCLAB ---
Date of service: 04/02/2018 STUDY DESCRIPTION: HISTORY: Pain in limb, Cold extremities. PRIORS: None. TECHNIQUE: Pulse volume recording waveforms and segmental pressures of bilateral lower extremities at multiple levels were obtained. Ankle Brachial Indices (ABIs) were calculated. Report prepared by Alhaji Lomax, BS, RVT RIGHT LOWER EXTREMITY: * Brachial artery: Pressure - 176 mmHg. * High thigh: Pressure - 103 mmHg: Ratio - 0.59: PVR waveform - Reduced * Low thigh: Pressure - 101 mmHg: Ratio - 0.57 PVR waveform: Reduced * Calf: Pressure - 84 mmHg: Ratio - 0.48 PVR waveform: Reduced * Posterior tibial Artery: Pressure - 60 mmHg: Ratio - 0.34 PVR waveform: Reduced * Dorsalis pedis Artery: Pressure - 65 mmHg: Ratio - 0.37 PVR waveform: Reduced Ankle brachial index (KE): 0.37 LEFT LOWER EXTREMITY: * Brachial artery: Pressure - 173 mmHg. * High thigh: Pressure - >220 mmHg: Ratio - n/c: PVR waveform - Reduced * Low thigh: Pressure - 183 mmHg: Ratio - 1.04 PVR waveform: Reduced * Calf: Pressure - 109 mmHg: Ratio - 0.62 PVR waveform: Reduced * Posterior tibial Artery: Pressure - 66 mmHg: Ratio - 0.38 PVR waveform: Reduced * Dorsalis pedis Artery: Pressure - 100 mmHg: Ratio - 0.57 PVR waveform: Reduced Ankle brachial index (KE): 0.57 OTHER FINDINGS: IMPRESSION: Right: Severely decreased ankle brachial index of 0.37. Abnormal arterial PVR waveforms. This exam reveals severely decreased arterial perfusion, beginning at the iliac artery level. Left: Moderately decreased ankle brachial index of 0.37. Abnormal arterial PVR waveforms. This exam reveals moderate to severe arterial insufficiency, beginning at the iliac artery level.
[2018-04-02] MEDS ORDERED: Bacitracin Ointment 30 GM TUBE ONE (14:07)
--- NOTE | 2018-04-02 15:28 | CP.PCM.PN ---
Subjective - Date & Time of Evaluation Date of Evaluation: 04/01/18 Time of Evaluation: 18:30 - Subjective Subjective: Pt seen and examined Objective - Vital Signs/Intake and Output Vital Signs (last 24 hours): Temp Pulse Resp BP Pulse Ox 97.7 F 56 L 11 L 142/67 98 04/02/18 12:00 04/02/18 10:00 04/02/18 10:00 04/02/18 12:01 04/02/18 06:00 Intake and Output: 04/02/18 04/02/18 06:59 18:59 Intake Total 240 Output Total 1000 Balance -760 - Medications Medications: Current Medications Acetaminophen (Tylenol 325mg Tab) 650 mg PO Q6 PRN PRN Reason: LEG CRAMPS Last Admin: 03/31/18 09:40 Dose: 650 mg Aspirin (Aspirin) 325 mg PO DAILY [facility] Last Admin: 04/02/18 09:07 Dose: 325 mg Clopidogrel Bisulfate (Plavix) 75 mg PO DAILY [facility] Last Admin: 04/02/18 09:08 Dose: 75 mg Enoxaparin Sodium (Lovenox) 30 mg SC DAILY [facility] Last Admin: 04/02/18 09:08 Dose: 30 mg Famotidine (Pepcid) 20 mg PO DAILY [facility] Last Admin: 04/02/18 09:08 Dose: 20 mg Furosemide (Lasix) 20 mg PO DAILY [facility] Last Admin: 04/02/18 12:01 Dose: 20 mg Hydralazine HCl (Apresoline) 25 mg PO Q8 [facility] Last Admin: 04/02/18 14:17 Dose: 25 mg Insulin Aspart (Novolog) 0 unit SC [facility] PRN Reason: Protocol Last Admin: 04/02/18 12:00 Dose: 6 u Metoprolol Tartrate (Lopressor) 25 mg PO BID [facility] Last Admin: 04/02/18 09:13 Dose: 25 mg Ondansetron HCl (Zofran Inj) 4 mg IVP Q6 PRN PRN Reason: Nausea/Vomiting Last Admin: 03/31/18 16:51 Dose: 4 mg Rosuvastatin Calcium (Crestor) 10 mg PO HS [facility] Last Admin: 04/01/18 21:16 Dose: 10 mg Zolpidem Tartrate (Ambien) 5 mg PO HS PRN PRN Reason: Insomnia Last Admin: 04/01/18 22:11 Dose: 5 mg - Labs Labs: 04/02/18 07:31 04/02/18 06:31 PT 12.3 SECONDS (9.7-12.2) H 04/01/18 06:09 INR 1.1 04/01/18 06:09 APTT 33 SECONDS (21-34) 03/28/18 03:55 Assessment and Plan (1) Acute ND Status: Acute (2) Congestive heart failure Status: Acute (3) Uncontrolled hypertension Status: Acute
--- NOTE | 2018-04-02 15:29 | CP.PCM.PN ---
Subjective - Date & Time of Evaluation Date of Evaluation: 04/02/18 Time of Evaluation: 18:35 - Subjective Subjective: Pt seen and examined Objective - Vital Signs/Intake and Output Vital Signs (last 24 hours): Temp Pulse Resp BP Pulse Ox 97.7 F 56 L 11 L 142/67 98 04/02/18 12:00 04/02/18 10:00 04/02/18 10:00 04/02/18 12:01 04/02/18 06:00 Intake and Output: 04/02/18 04/02/18 06:59 18:59 Intake Total 240 Output Total 1000 Balance -760 - Medications Medications: Current Medications Acetaminophen (Tylenol 325mg Tab) 650 mg PO Q6 PRN PRN Reason: LEG CRAMPS Last Admin: 03/31/18 09:40 Dose: 650 mg Aspirin (Aspirin) 325 mg PO DAILY [facility] Last Admin: 04/02/18 09:07 Dose: 325 mg Clopidogrel Bisulfate (Plavix) 75 mg PO DAILY [facility] Last Admin: 04/02/18 09:08 Dose: 75 mg Enoxaparin Sodium (Lovenox) 30 mg SC DAILY [facility] Last Admin: 04/02/18 09:08 Dose: 30 mg Famotidine (Pepcid) 20 mg PO DAILY [facility] Last Admin: 04/02/18 09:08 Dose: 20 mg Furosemide (Lasix) 20 mg PO DAILY [facility] Last Admin: 04/02/18 12:01 Dose: 20 mg Hydralazine HCl (Apresoline) 25 mg PO Q8 [facility] Last Admin: 04/02/18 14:17 Dose: 25 mg Insulin Aspart (Novolog) 0 unit SC [facility] PRN Reason: Protocol Last Admin: 04/02/18 12:00 Dose: 6 u Metoprolol Tartrate (Lopressor) 25 mg PO BID [facility] Last Admin: 04/02/18 09:13 Dose: 25 mg Ondansetron HCl (Zofran Inj) 4 mg IVP Q6 PRN PRN Reason: Nausea/Vomiting Last Admin: 03/31/18 16:51 Dose: 4 mg Rosuvastatin Calcium (Crestor) 10 mg PO HS [facility] Last Admin: 04/01/18 21:16 Dose: 10 mg Zolpidem Tartrate (Ambien) 5 mg PO HS PRN PRN Reason: Insomnia Last Admin: 04/01/18 22:11 Dose: 5 mg - Labs Labs: 04/02/18 07:31 04/02/18 06:31 PT 12.3 SECONDS (9.7-12.2) H 04/01/18 06:09 INR 1.1 04/01/18 06:09 APTT 33 SECONDS (21-34) 03/28/18 03:55 Assessment and Plan (1) Acute MD Status: Acute (2) Congestive heart failure Status: Acute (3) Uncontrolled hypertension Status: Acute
--- NOTE | 2018-04-02 16:27 | CP.PCM.CON ---
History of Present Illness - History of Present Illness History of Present Illness: Vascular Surgery Consult Note for Dr. Avalos 77F w/ PMH, HTN, DM, CHF, HLD, [place] s/p stents, and CABG, consulted for bilateral leg cramping that has been going on for 1 year. She was seen and evaluated in the ICU. She complains that the leg pain has worsened over time. She is ambulatory but has been less ambulatory because it reproduces the cramping pain in both legs. It is relieved by rest. It used to come and go, but now is more frequent. She notices recently that she experiences pain at rest as well. PMH: see above PSH: CABG, stents, hysterectomy, cholecystectomy ALL: codeine Soc: 30PPD quit 2 years ago, denies alcohol and drugs Review of Systems - Constitutional Constitutional: Weakness. absent: Chills, Fever, Headache - EENT Eyes: absent: Blurred Vision, Change in Vision Ears: absent: Ear Discharge, Ear Pain Nose/Mouth/Throat: absent: Nasal Congestion, Nasal Discharge - Cardiovascular Cardiovascular: Leg Ulcers. absent: Chest Pain, Dyspnea - Respiratory Respiratory: absent: Cough, Dyspnea - Gastrointestinal Gastrointestinal: absent: Abdominal Pain, Bloating, Nausea, Vomiting - Genitourinary Genitourinary: absent: Difficulty Urinating, Dysuria - Musculoskeletal Musculoskeletal: absent: Arthralgias, Back Pain - Integumentary Integumentary: absent: Changing Lesions, New Lesions - Neurological Neurological: absent: Confusion, Dizziness - Psychiatric Psychiatric: absent: Anxiety, Depression Past Patient History - Past Medical History & Family History Past Medical History?: Yes - Past Social History Smoking Status: Never Smoked - CARDIAC Hx Hypertension: Yes - PULMONARY Hx Respiratory Disorders: No - NEUROLOGICAL Hx Neurological Disorder: No - HEENT Hx HEENT Problems: No - RENAL Hx Chronic Kidney Disease: No - ENDOCRINE/METABOLIC Hx Endocrine Disorders: No Hx Diabetes Mellitus Type 2: Yes - HEMATOLOGICAL/ONCOLOGICAL Hx Blood Disorders: No - INTEGUMENTARY Hx Dermatological Problems: No - MUSCULOSKELETAL/RHEUMATOLOGICAL Hx Falls: No - GASTROINTESTINAL Hx Gastrointestinal Disorders: No - GENITOURINARY/GYNECOLOGICAL Hx Genitourinary Disorders: No - PSYCHIATRIC Hx Substance Use: No - SURGICAL HISTORY Hx Cholecystectomy: Yes Hx Coronary Artery Bypass Graft: Yes - ANESTHESIA Hx Anesthesia: Yes Hx Anesthesia Reactions: No Meds Allergies/Adverse Reactions: Allergies Allergy/AdvReac Type Severity Reaction Status Date / Time codeine Allergy Verified 03/28/18 03:54 - Medications Medications: Current Medications Acetaminophen (Tylenol 325mg Tab) 650 mg PO Q6 PRN PRN Reason: LEG CRAMPS Last Admin: 03/31/18 09:40 Dose: 650 mg Aspirin (Aspirin) 325 mg PO DAILY [facility] Last Admin: 04/02/18 09:07 Dose: 325 mg Clopidogrel Bisulfate (Plavix) 75 mg PO DAILY [facility] Last Admin: 04/02/18 09:08 Dose: 75 mg Enoxaparin Sodium (Lovenox) 30 mg SC DAILY [facility] Last Admin: 04/02/18 09:08 Dose: 30 mg Famotidine (Pepcid) 20 mg PO DAILY [facility] Last Admin: 04/02/18 09:08 Dose: 20 mg Furosemide (Lasix) 20 mg PO DAILY [facility] Last Admin: 04/02/18 12:01 Dose: 20 mg Hydralazine HCl (Apresoline) 25 mg PO Q8 [facility] Last Admin: 04/02/18 14:17 Dose: 25 mg Insulin Aspart (Novolog) 0 unit SC A[facility]S [facility] PRN Reason: Protocol Last Admin: 04/02/18 12:00 Dose: 6 u Metoprolol Tartrate (Lopressor) 25 mg PO BID [facility] Last Admin: 04/02/18 09:13 Dose: 25 mg Ondansetron HCl (Zofran Inj) 4 mg IVP Q6 PRN PRN Reason: Nausea/Vomiting Last Admin: 03/31/18 16:51 Dose: 4 mg Rosuvastatin Calcium (Crestor) 10 mg PO HS [facility] Last Admin: 04/01/18 21:16 Dose: 10 mg Zolpidem Tartrate (Ambien) 5 mg PO HS PRN PRN Reason: Insomnia Last Admin: 04/01/18 22:11 Dose: 5 mg Physical Exam - Constitutional Appears: Well, Non-toxic, No Acute Distress - Head Exam Head Exam: ATRAUMATIC, NORMAL INSPECTION, NORMOCEPHALIC - Respiratory Exam Respiratory Exam: Clear to Auscultation Bilateral, NORMAL BREATHING PATTERN - Cardiovascular Exam Cardiovascular Exam: REGULAR RHYTHM, +S1, +S2 - GI/Abdominal Exam GI & Abdominal Exam: Normal Bowel Sounds, Soft. absent: Tenderness - Rectal Exam Rectal Exam: Deferred - Extremities Exam Extremities exam: Positive for: calf tenderness, tenderness. Negative for: pedal pulses present - Neurological Exam Neurological exam: Alert, Oriented x3 - Psychiatric Exam Psychiatric exam: Normal Affect, Normal Mood Results - Vital Signs Recent Vital Signs: Last Vital Signs Temp 97.5 F L 04/02/18 16:00 Pulse 56 L 04/02/18 16:01 Resp 14 04/02/18 16:01 BP 105/57 L 04/02/18 16:01 Pulse Ox 97 04/02/18 12:34 - Labs Result Diagrams: 04/02/18 07:31 04/02/18 06:31 Labs: Laboratory Results - last 24 hr 04/01/18 04/02/18 04/02/18 21:31 06:31 07:19 WBC RBC Hgb Hct MCV MCH MCHC RDW Plt Count MPV Neut % (Auto) Lymph % (Auto) [place] % (Auto) Eos % (Auto) Baso % (Auto) Neut # (Auto) Lymph # (Auto) [place] # (Auto) Eos # (Auto) Baso # (Auto) Sodium 134 Potassium 5.4 H Chloride 97 L Carbon Dioxide 28 Anion Gap 15 BUN 38 H Creatinine 2.1 H Est GFR ( Amer) 28 Est GFR (Non-Af Amer) 23 POC Glucose (mg/dL) 161 H 146 H Random Glucose 149 H Calcium 9.1 Total Bilirubin 0.3 AST 27 ALT 26 Alkaline Phosphatase 78 Total Protein 7.4 Albumin 3.8 Globulin 3.6 Albumin/Globulin Ratio 1.0 04/02/18 04/02/18 04/02/18 07:31 11:11 16:08 WBC 10.2 RBC 3.92 Hgb 11.0 Hct 32.8 L MCV 83.7 MCH 28.0 MCHC 33.5 RDW 15.6 H Plt Count 295 MPV 9.1 Neut % (Auto) 63.0 Lymph % (Auto) 24.0 [place]zel % (Auto) 9.8 Eos % (Auto) 2.8 Baso % (Auto) 0.4 Neut # (Auto) 6.4 Lymph # (Auto) 2.5 Wetzel # (Auto) 1.0 H Eos # (Auto) 0.3 Baso # (Auto) 0.0 Sodium Potassium Chloride Carbon Dioxide Anion Gap BUN Creatinine Est GFR ( Amer) Est GFR (Non-Af Amer) POC Glucose (mg/dL) 325 H 100 Random Glucose Calcium Total Bilirubin AST ALT Alkaline Phosphatase Total Protein Albumin Globulin Albumin/Globulin Ratio Assessment & Plan - Assessment and Plan (Free Text) Assessment: 77F w/ bilateral leg cramping Plan: LE US: ABIs of 0.37 bilaterally Patient pending cardiac work up including Cath Awaiting for improvement in Cr No surgical intervention at this present time Will continue to follow until medically optimized Further recs per Dr. Robbie Parker PGY1
--- NOTE | 2018-04-02 16:47 | CP.PCM.PN ---
Subjective - Date & Time of Evaluation Date of Evaluation: 04/02/18 Time of Evaluation: 16:46 - Subjective Subjective: No new complaints. Objective - Vital Signs/Intake and Output Vital Signs (last 24 hours): Temp Pulse Resp BP Pulse Ox 97.5 F L 56 L 14 105/57 L 97 04/02/18 16:00 04/02/18 16:01 04/02/18 16:01 04/02/18 16:01 04/02/18 12:34 Intake and Output: 04/02/18 04/02/18 06:59 18:59 Intake Total 240 Output Total 1000 Balance -760 - Medications Medications: Current Medications Acetaminophen (Tylenol 325mg Tab) 650 mg PO Q6 PRN PRN Reason: LEG CRAMPS Last Admin: 03/31/18 09:40 Dose: 650 mg Aspirin (Aspirin) 325 mg PO DAILY [facility] Last Admin: 04/02/18 09:07 Dose: 325 mg Clopidogrel Bisulfate (Plavix) 75 mg PO DAILY [facility] Last Admin: 04/02/18 09:08 Dose: 75 mg Enoxaparin Sodium (Lovenox) 30 mg SC DAILY [facility] Last Admin: 04/02/18 09:08 Dose: 30 mg Famotidine (Pepcid) 20 mg PO DAILY [facility] Last Admin: 04/02/18 09:08 Dose: 20 mg Furosemide (Lasix) 20 mg PO DAILY [facility] Last Admin: 04/02/18 12:01 Dose: 20 mg Hydralazine HCl (Apresoline) 25 mg PO Q8 [facility] Last Admin: 04/02/18 14:17 Dose: 25 mg Insulin Aspart (Novolog) 0 unit SC [facility] PRN Reason: Protocol Last Admin: 04/02/18 12:00 Dose: 6 u Metoprolol Tartrate (Lopressor) 25 mg PO BID [facility] Last Admin: 04/02/18 09:13 Dose: 25 mg Ondansetron HCl (Zofran Inj) 4 mg IVP Q6 PRN PRN Reason: Nausea/Vomiting Last Admin: 03/31/18 16:51 Dose: 4 mg Rosuvastatin Calcium (Crestor) 10 mg PO HS [facility] Last Admin: 04/01/18 21:16 Dose: 10 mg Zolpidem Tartrate (Ambien) 5 mg PO HS PRN PRN Reason: Insomnia Last Admin: 04/01/18 22:11 Dose: 5 mg - Labs Labs: 04/02/18 07:31 04/02/18 06:31 PT 12.3 SECONDS (9.7-12.2) H 04/01/18 06:09 INR 1.1 04/01/18 06:09 APTT 33 SECONDS (21-34) 03/28/18 03:55 Assessment and Plan (1) Acute MD Assessment & Plan: Creatinine trending up. Hold cath for now. nephrology evaluation. Status: Acute (2) Congestive heart failure Status: Acute
[2018-04-02 23:59] VITALS: RESP 20
[2018-04-03] MEDS: (Novolog) Insulin Aspart, Recombinant 100 u/ml 10 ml vial SC SCH ×4 (08:07→21:38)
[2018-04-03 08:24] LABS: CALCIUM 8.8 mg/dl (8.6-10.4)
[2018-04-03] MEDS: Enoxaparin 30 mg Syringe SC SCH (10:20)
--- NOTE | 2018-04-03 10:52 | CP.PCM.PN ---
Subjective - Date & Time of Evaluation Date of Evaluation: 04/03/18 Time of Evaluation: 10:52 - Subjective Subjective: 77 y/o female patient seen in ICU with attending Dr. Araya for bilateral leg cramps with exertion and right foot 1st and 2nd digit pain. Patient's son is at bedside today. Pt continues to report pain in the toes of the right foot. States the legs cramp up and hurt when she walks at all. Denies any other pedal complaints. Denies F/C/N/V. Objective - Vital Signs/Intake and Output Vital Signs (last 24 hours): Temp Pulse Resp BP Pulse Ox 98.0 F 61 20 127/77 97 04/03/18 08:48 04/03/18 08:48 04/03/18 08:48 04/03/18 10:20 04/03/18 08:48 - Medications Medications: Current Medications Acetaminophen (Tylenol 325mg Tab) 650 mg PO Q6 PRN PRN Reason: LEG CRAMPS Last Admin: 03/31/18 09:40 Dose: 650 mg Aspirin (Aspirin) 325 mg PO DAILY [facility] Last Admin: 04/03/18 10:20 Dose: 325 mg Clopidogrel Bisulfate (Plavix) 75 mg PO DAILY [facility] Last Admin: 04/03/18 10:20 Dose: 75 mg Enoxaparin Sodium (Lovenox) 30 mg SC DAILY [facility] Last Admin: 04/03/18 10:20 Dose: 30 mg Famotidine (Pepcid) 20 mg PO DAILY [facility] Last Admin: 04/03/18 10:20 Dose: 20 mg Furosemide (Lasix) 20 mg PO DAILY [facility] Last Admin: 04/03/18 10:20 Dose: 20 mg Hydralazine HCl (Apresoline) 25 mg PO Q8 [facility] Last Admin: 04/03/18 05:12 Dose: 25 mg Insulin Aspart (Novolog) 0 unit SC [facility] PRN Reason: Protocol Last Admin: 04/03/18 08:07 Dose: 2 u Metoprolol Tartrate (Lopressor) 25 mg PO BID [facility] Last Admin: 04/03/18 10:20 Dose: 25 mg Ondansetron HCl (Zofran Inj) 4 mg IVP Q6 PRN PRN Reason: Nausea/Vomiting Last Admin: 03/31/18 16:51 Dose: 4 mg Rosuvastatin Calcium (Crestor) 10 mg PO HS [facility] Last Admin: 04/02/18 21:16 Dose: 10 mg Zolpidem Tartrate (Ambien) 5 mg PO HS PRN PRN Reason: Insomnia Last Admin: 04/02/18 21:15 Dose: 5 mg - Labs Labs: 04/02/18 07:31 04/03/18 07:56 PT 12.3 SECONDS (9.7-12.2) H 04/01/18 06:09 INR 1.1 04/01/18 06:09 APTT 33 SECONDS (21-34) 03/28/18 03:55 - Constitutional Appears: Well, Non-toxic, No Acute Distress - Extremities Exam Additional comments: Lower extremity focused exam: Vasc: DP/PT pulses faintly palpable 1/4 B/L. Temperature gradient warm to cold B /L. No pedal edema noted. Skin is thin and shiny. Derm: Pinpoint ischemic lesions noted to plantar aspects of 1st and 2nd digits R foot. No open lesions, no erythema, no ecchymosis. Neuro: Protective sensation grossly intact Ortho: moderate tenderness to palpation of right foot 1st and 2nd toes. No posterior calf tenderness B/L - Neurological Exam Neurological Exam: Alert, Awake, Oriented x3 - Psychiatric Exam Psychiatric exam: Normal Affect, Normal Mood Assessment and Plan - Assessment and Plan (Free Text) Assessment: 77 y/o female with 1) bilateral leg intermittent claudication and 2) right foot 1st and 2nd digit toe pain, likely secondary to peripheral vascular disease Plan Pt seen and evaluated in ICU with attending Dr. Araya Arterial duplex studies reveal severely decreased arterial perfusion to RLE with KE of 0.37; moderately decreased perfusion on LLE with KE of 0.[address] Avalos on board, appreciate recommendations Will continue to follow patient
--- NOTE | 2018-04-03 15:44 | CP.PCM.PN ---
Subjective - Date & Time of Evaluation Date of Evaluation: 04/03/18 Time of Evaluation: 10:00 - Subjective Subjective: GENERAL SURGERY PROGRESS NOTE FOR DR. CATHERINE Patient seen and examined at bedside. She reports some pain to her right foot, particularly her right toes. Objective - Vital Signs/Intake and Output Vital Signs (last 24 hours): Temp Pulse Resp BP Pulse Ox 98.0 F 61 20 127/77 97 04/03/18 08:48 04/03/18 08:48 04/03/18 08:48 04/03/18 10:20 04/03/18 08:48 - Medications Medications: Current Medications Acetaminophen (Tylenol 325mg Tab) 650 mg PO Q6 PRN PRN Reason: LEG CRAMPS Last Admin: 03/31/18 09:40 Dose: 650 mg Aspirin (Aspirin) 325 mg PO DAILY [facility] Last Admin: 04/03/18 10:20 Dose: 325 mg Clopidogrel Bisulfate (Plavix) 75 mg PO DAILY [facility] Last Admin: 04/03/18 10:20 Dose: 75 mg Enoxaparin Sodium (Lovenox) 30 mg SC DAILY [facility] Last Admin: 04/03/18 10:20 Dose: 30 mg Famotidine (Pepcid) 20 mg PO DAILY [facility] Last Admin: 04/03/18 10:20 Dose: 20 mg Furosemide (Lasix) 20 mg PO DAILY [facility] Last Admin: 04/03/18 10:20 Dose: 20 mg Hydralazine HCl (Apresoline) 25 mg PO Q8 [facility] Last Admin: 04/03/18 13:46 Dose: 25 mg Insulin Aspart (Novolog) 0 unit SC ACHS [facility] PRN Reason: Protocol Last Admin: 04/03/18 12:09 Dose: 4 u Metoprolol Tartrate (Lopressor) 25 mg PO BID [facility] Last Admin: 04/03/18 10:20 Dose: 25 mg Ondansetron HCl (Zofran Inj) 4 mg IVP Q6 PRN PRN Reason: Nausea/Vomiting Last Admin: 04/03/18 14:46 Dose: 4 mg Rosuvastatin Calcium (Crestor) 10 mg PO HS [facility] Last Admin: 04/02/18 21:16 Dose: 10 mg Zolpidem Tartrate (Ambien) 5 mg PO HS PRN PRN Reason: Insomnia Last Admin: 04/02/18 21:15 Dose: 5 mg - Labs Labs: 04/02/18 07:31 04/03/18 07:56 PT 12.3 SECONDS (9.7-12.2) H 04/01/18 06:09 INR 1.1 04/01/18 06:09 APTT 33 SECONDS (21-34) 03/28/18 03:55 - Constitutional Appears: Well, Non-toxic, No Acute Distress - Head Exam Head Exam: ATRAUMATIC, NORMAL INSPECTION - Eye Exam Eye Exam: EOMI, Normal appearance - Respiratory Exam Respiratory Exam: NORMAL BREATHING PATTERN. absent: Respiratory Distress - Cardiovascular Exam Cardiovascular Exam: +S1, +S2 - GI/Abdominal Exam GI & Abdominal Exam: Soft. absent: Tenderness - Neurological Exam Neurological Exam: Alert, Awake - Psychiatric Exam Psychiatric exam: Normal Affect, Normal Mood Assessment and Plan - Assessment and Plan (Free Text) Assessment: 77F w/ right foot pain Plan: - LE US: ABIs of 0.37 on the right and 0.57 on the left - Patient pending cardiac work up including Cath - Awaiting for improvement in Cr (Cr 2.1 today same as yesterday) - No surgical intervention at this present time, pt will need cardiac/medical optimization prior to any vascular surgery intervention - Discussed plan with Dr. Robbie Ivey PGY-4
--- NOTE | 2018-04-03 18:27 | CP.PCM.PN ---
Subjective - Date & Time of Evaluation Date of Evaluation: 04/03/18 Time of Evaluation: 18:23 - Subjective Subjective: Sitting in bed, no SOB or chest pain. Objective - Vital Signs/Intake and Output Vital Signs (last 24 hours): Temp Pulse Resp BP Pulse Ox 97.7 F 56 L 20 124/63 98 04/03/18 15:00 04/03/18 15:00 04/03/18 15:00 04/03/18 15:00 04/03/18 15:00 - Medications Medications: Current Medications Acetaminophen (Tylenol 325mg Tab) 650 mg PO Q6 PRN PRN Reason: LEG CRAMPS Last Admin: 03/31/18 09:40 Dose: 650 mg Aspirin (Aspirin) 325 mg PO DAILY [facility] Last Admin: 04/03/18 10:20 Dose: 325 mg Clopidogrel Bisulfate (Plavix) 75 mg PO DAILY [facility] Last Admin: 04/03/18 10:20 Dose: 75 mg Enoxaparin Sodium (Lovenox) 30 mg SC DAILY [facility] Last Admin: 04/03/18 10:20 Dose: 30 mg Famotidine (Pepcid) 20 mg PO DAILY [facility] Last Admin: 04/03/18 10:20 Dose: 20 mg Furosemide (Lasix) 20 mg PO DAILY [facility] Last Admin: 04/03/18 10:20 Dose: 20 mg Hydralazine HCl (Apresoline) 25 mg PO Q8 [facility] Last Admin: 04/03/18 13:46 Dose: 25 mg Insulin Aspart (Novolog) 0 unit SC ACHS [facility] PRN Reason: Protocol Last Admin: 04/03/18 17:00 Dose: Not Given Metoprolol Tartrate (Lopressor) 25 mg PO BID [facility] Last Admin: 04/03/18 10:20 Dose: 25 mg Ondansetron HCl (Zofran Inj) 4 mg IVP Q6 PRN PRN Reason: Nausea/Vomiting Last Admin: 04/03/18 14:46 Dose: 4 mg Rosuvastatin Calcium (Crestor) 10 mg PO HS [facility] Last Admin: 04/02/18 21:16 Dose: 10 mg Zolpidem Tartrate (Ambien) 5 mg PO HS PRN PRN Reason: Insomnia Last Admin: 04/02/18 21:15 Dose: 5 mg - Labs Labs: 04/02/18 07:31 04/03/18 07:56 PT 12.3 SECONDS (9.7-12.2) H 04/01/18 06:09 INR 1.1 04/01/18 06:09 APTT 33 SECONDS (21-34) 03/28/18 03:55 - Head Exam Head Exam: NORMOCEPHALIC - Neck Exam Neck Exam: Normal Inspection - Respiratory Exam Respiratory Exam: NORMAL BREATHING PATTERN - Cardiovascular Exam Cardiovascular Exam: REGULAR RHYTHM Additional comments: 2/6 systolic murmur. - Exam Exam: NORMAL INSPECTION - Neurological Exam Neurological Exam: Alert, Oriented x3 Assessment and Plan (1) Acute [place] Assessment & Plan: Continue DAPT and beta blockers. Status: Acute (2) Congestive heart failure Assessment & Plan: Improved, Hold diuretics. Only fluid restriction Further cardiac work-up when renal function has improved and Ok with nephrology. Status: Acute
--- NOTE | 2018-04-03 20:39 | CP.PCM.CON ---
History of Present Illness - History of Present Illness History of Present Illness: pt is seen and examined, follow up consult is dictated #[id number] 1. CKD-3, most likely sec to hypertensive nephrosclerosis and advanced age, can' t r/o renovascular disease 2. htn 3.dm 4. hld 5. cad s/p cabg, s/p 2 stents check pth, po4 level, Past Patient History - Past Medical History & Family History Past Medical History?: Yes - Past Social History Smoking Status: Never Smoked - CARDIAC Hx Hypertension: Yes - PULMONARY Hx Respiratory Disorders: No - NEUROLOGICAL Hx Neurological Disorder: No - HEENT Hx HEENT Problems: No - RENAL Hx Chronic Kidney Disease: No - ENDOCRINE/METABOLIC Hx Endocrine Disorders: No Hx Diabetes Mellitus Type 2: Yes - HEMATOLOGICAL/ONCOLOGICAL Hx Blood Disorders: No - INTEGUMENTARY Hx Dermatological Problems: No - MUSCULOSKELETAL/RHEUMATOLOGICAL Hx Falls: No - GASTROINTESTINAL Hx Gastrointestinal Disorders: No - GENITOURINARY/GYNECOLOGICAL Hx Genitourinary Disorders: No - PSYCHIATRIC Hx Substance Use: No - SURGICAL HISTORY Hx Cholecystectomy: Yes Hx Coronary Artery Bypass Graft: Yes - ANESTHESIA Hx Anesthesia: Yes Hx Anesthesia Reactions: No Meds Allergies/Adverse Reactions: Allergies Allergy/AdvReac Type Severity Reaction Status Date / Time codeine Allergy Verified 03/28/18 03:54 - Medications Medications: Current Medications Acetaminophen (Tylenol 325mg Tab) 650 mg PO Q6 PRN PRN Reason: LEG CRAMPS Last Admin: 03/31/18 09:40 Dose: 650 mg Aspirin (Aspirin) 325 mg PO DAILY [facility] Last Admin: 04/03/18 10:20 Dose: 325 mg Clopidogrel Bisulfate (Plavix) 75 mg PO DAILY [facility] Last Admin: 04/03/18 10:20 Dose: 75 mg Enoxaparin Sodium (Lovenox) 30 mg SC DAILY [facility] Last Admin: 04/03/18 10:20 Dose: 30 mg Famotidine (Pepcid) 20 mg PO DAILY [facility] Last Admin: 04/03/18 10:20 Dose: 20 mg Furosemide (Lasix) 20 mg PO DAILY [facility] Last Admin: 04/03/18 10:20 Dose: 20 mg Hydralazine HCl (Apresoline) 25 mg PO Q8 [facility] Last Admin: 04/03/18 13:46 Dose: 25 mg Insulin Aspart (Novolog) 0 unit SC [facility] PRN Reason: Protocol Last Admin: 04/03/18 17:00 Dose: Not Given Metoprolol Tartrate (Lopressor) 25 mg PO BID [facility] Last Admin: 04/03/18 10:20 Dose: 25 mg Ondansetron HCl (Zofran Inj) 4 mg IVP Q6 PRN PRN Reason: Nausea/Vomiting Last Admin: 04/03/18 14:46 Dose: 4 mg Rosuvastatin Calcium (Crestor) 10 mg PO HS [facility] Last Admin: 04/02/18 21:16 Dose: 10 mg Zolpidem Tartrate (Ambien) 5 mg PO HS PRN PRN Reason: Insomnia Last Admin: 04/02/18 21:15 Dose: 5 mg Results - Vital Signs Recent Vital Signs: Last Vital Signs Temp 97.7 F 04/03/18 15:00 Pulse 56 L 04/03/18 15:00 Resp 20 04/03/18 15:00 BP 124/63 04/03/18 15:00 Pulse Ox 98 04/03/18 15:00 - Labs Result Diagrams: 04/02/18 07:31 04/03/18 07:56 Labs: Laboratory Results - last 24 hr 04/02/18 04/03/18 04/03/18 21:45 06:51 07:56 Sodium 131 L Potassium 5.0 Chloride 95 L Carbon Dioxide 26 Anion Gap 16 BUN 41 H Creatinine 2.1 H Est GFR ( Amer) 28 Est GFR (Non-Af Amer) 23 POC Glucose (mg/dL) 252 H 160 H Random Glucose 156 H Calcium 8.8 Phosphorus 04/03/18 04/03/18 04/03/18 11:50 17:12 19:54 Sodium Potassium Chloride Carbon Dioxide Anion Gap BUN Creatinine Est GFR ( Amer) Est GFR (Non-Af Amer) POC Glucose (mg/dL) 266 H 122 H Random Glucose Calcium Phosphorus 4.9 H
[2018-04-04] MEDS: (Novolog) Insulin Aspart, Recombinant 100 u/ml 10 ml vial SC SCH ×4 (07:50→22:14)
--- NOTE | 2018-04-04 09:02 | CP.PCM.PN ---
Subjective - Date & Time of Evaluation Date of Evaluation: 04/03/18 Time of Evaluation: 18:00 - Subjective Subjective: Pt was seen and examined during routine follow up today Objective - Vital Signs/Intake and Output Vital Signs (last 24 hours): Temp Pulse Resp BP Pulse Ox 98.2 F 58 L 20 133/73 95 04/04/18 08:41 04/04/18 08:41 04/04/18 08:41 04/04/18 08:41 04/04/18 08:41 - Medications Medications: Current Medications Acetaminophen (Tylenol 325mg Tab) 650 mg PO Q6 PRN PRN Reason: LEG CRAMPS Last Admin: 03/31/18 09:40 Dose: 650 mg Aspirin (Aspirin) 325 mg PO DAILY [facility] Last Admin: 04/03/18 10:20 Dose: 325 mg Clopidogrel Bisulfate (Plavix) 75 mg PO DAILY [facility] Last Admin: 04/03/18 10:20 Dose: 75 mg Enoxaparin Sodium (Lovenox) 30 mg SC DAILY [facility] Last Admin: 04/03/18 10:20 Dose: 30 mg Famotidine (Pepcid) 20 mg PO DAILY [facility] Last Admin: 04/03/18 10:20 Dose: 20 mg Furosemide (Lasix) 20 mg PO DAILY [facility] Last Admin: 04/03/18 10:20 Dose: 20 mg Hydralazine HCl (Apresoline) 25 mg PO Q8 [facility] Last Admin: 04/04/18 05:48 Dose: 25 mg Insulin Aspart (Novolog) 0 unit SC ACHS [facility] PRN Reason: Protocol Last Admin: 04/04/18 07:50 Dose: 2 u Metoprolol Tartrate (Lopressor) 25 mg PO BID [facility] Last Admin: 04/03/18 18:00 Dose: Not Given Ondansetron HCl (Zofran Inj) 4 mg IVP Q6 PRN PRN Reason: Nausea/Vomiting Last Admin: 04/03/18 14:46 Dose: 4 mg Rosuvastatin Calcium (Crestor) 10 mg PO HS [facility] Last Admin: 04/03/18 21:37 Dose: 10 mg Zolpidem Tartrate (Ambien) 5 mg PO HS PRN PRN Reason: Insomnia Last Admin: 04/03/18 21:43 Dose: 5 mg - Labs Labs: 04/02/18 07:31 04/03/18 07:56 PT 12.3 SECONDS (9.7-12.2) H 04/01/18 06:09 INR 1.1 04/01/18 06:09 APTT 33 SECONDS (21-34) 03/28/18 03:55 Assessment and Plan (1) Acute [place] Status: Acute (2) Congestive heart failure Status: Acute (3) Uncontrolled hypertension Status: Acute
[2018-04-04] MEDS: Enoxaparin 30 mg Syringe SC SCH (09:17)
--- NOTE | 2018-04-04 11:20 | US ---
Date of service: 04/03/2018 PROCEDURE: Ultrasound of the Kidneys HISTORY: CKD, for kidney size COMPARISON: None available. TECHNIQUE: Sonogram of the kidneys. FINDINGS: RIGHT KIDNEY: Measures: 9.6 cm. Normal in size, contour with diffuse increased echogenicity. No stone, solid mass lesion or hydronephrosis visualized. There is a 2.4 x 2.2 x 2.4 cm simple cyst with irregular borders in the upper pole and 2.0 x 2.3 x 2.0 cm simple cyst in the upper pole. LEFT KIDNEY: Measures: 8.2 cm. Normal in size, contour with diffuse increased echogenicity. No stone, solid mass lesion or hydronephrosis visualized. There is a 1.0 x 0.8 x 1.0 cm cyst in the interpolar region OTHER FINDINGS: None. IMPRESSION: Chronic renal parenchymal disease. Normal size of the right kidney, small left kidney. Simple cysts in both kidneys, the largest in the right upper pole measures 2.4 cm.
--- NOTE | 2018-04-04 11:32 | CON ---
Copied To: Anthony Garrett MD Attending MD: Anthony Garrett MD DATE: 04/03/2018 FOLLOWUP RENAL CONSULTATION LOCATION: Room 669, bed B. REQUESTED BY: Dillan Menendez MD REASON FOR FOLLOWUP: Increased BUN and creatinine; for further evaluation of CKD. HISTORY OF PRESENT ILLNESS: Mrs. Holland is a 77-year-old elderly female with a past medical history significant for longstanding hypertension for more than 15 years, diabetes, hyperlipidemia, coronary artery disease, gastritis, post CABG in 2003, who was status post stents in coronary in 02/2016, who was admitted through the emergency room with chief complaints of chest pressure and shortness of breath, who came from [place] last year and lost all medical followups. The patient was complaining of shortness of breath one day and occasional cough associated with brown sputum but denies any fever. Denies any nausea, vomiting, or diarrhea. Denies any abdominal pain. Chest pressure is a vague symptom and no radiation of the pain, not associated with nausea or vomiting. PAST MEDICAL HISTORY: Significant for hypertension for more than 15 years, diabetes for more than 15 years, hyperlipidemia, chronic kidney disease, and CAD. PAST SURGICAL HISTORY: Status post CABG in 2003 and status post stents in 2016, two stent placements, and also hysterectomy and cholecystectomy. ALLERGIES: ALLERGIC TO CODEINE. SOCIAL HISTORY: The patient was an ex-smoker, quit one year ago. Denies alcohol abuse or drug abuse. She used to smoke from age 16 until 76. She used to smoke one pack per day, 60 pack-years. FAMILY HISTORY: Not significant. She is and she has about 6 children, 3 . CURRENT MEDICATIONS: Include as follows: Ambien 5 mg at bedtime, hydralazine 25 mg p.o. every 8 hours, aspirin 325 mg p.o. daily, Crestor 10 mg at bedtime, Lasix 20 mg p.o. daily, Lopressor 25 mg p.o. b.i.d., Lovenox 30 mg subcu daily, NovoLog for sliding scale, Pepcid 20 mg p.o. daily, Plavix 75 mg daily, Tylenol, Zofran 4 mg IV every 6 hours p.r.n. PHYSICAL EXAMINATION: GENERAL Mrs. Holland is a 77-year-old elderly female, moderately built, moderately nourished, not in distress. VITAL SIGNS: Blood pressure 124/63, pulse 56, respirations 20, temperature 97.7, saturation 98%. Height 5 feet 4 inches. Weight 173 pounds. HEENT: Pupils normally reactive to light and accommodation. Conjunctivae pink. Sclerae anicteric. Tongue is moist. Trachea is midline. LUNGS: Symmetric on both sides bilaterally. Breath sounds present. Clear to auscultation. CVS: [place] at the fifth intercostal space, midclavicular line. S1 and S2 audible. No murmur or gallop. ABDOMEN: Normal in appearance, soft, tympanic. No guarding. No rigidity. No hepatosplenomegaly. EXTREMITIES: No cyanosis, no clubbing, no edema. OPERATIVE SUPERVISOR: The patient is alert, awake, oriented x3. Nonfocal on examination. Cranial nerves II through XII grossly intact. Sensory and motor system within normal limits. LABORATORY DATA: Include as follows: As of 04/03/2018, sodium 131, potassium is 5, chloride 95, CO2 of 26, BUN 41, creatinine 2.1, glucose 156, calcium 8.8, and phosphorus 4.9. As of 04/02/2018, WBC 10.8, hemoglobin 11, hematocrit is 32.8, platelets 295,000. As of 03/28/2018, urinalysis straw color, hazy, pH 5, specific gravity 1.004. Protein negative. Glucose normal. Ketones negative. Blood trace. Nitrite is negative. Bilirubin negative. Urobilinogen normal. Leukocyte esterase is negative. Bacteria rare, wbc's 2, rbc's 10. Chest x-ray as of 03/28/2018; Impression: CHF. Lower extremity ultrasound as of 04/01/2018; Impression: Right side has severely decreased ankle-brachial index of 0.37, abnormal arterial PVR waveforms. This exam reveals severely decreased arterial perfusion beginning at the iliac artery level, left moderately decreased ankle-brachial index of 0.37. Normal arterial PVR waveforms. This exam shows moderate to severe arterial insufficiency beginning at the iliac artery level. Ultrasound of the kidney report is pending. Other laboratory data on admission as of 03/29/2018, sodium 138, potassium 4.6, chloride 98, CO2 of 29, BUN 26, creatinine 2, glucose 185, calcium 8.8, phosphorus 4.1, magnesium 2.1. Total bilirubin 0.4. AST 14, ALT 16, alkaline phosphatase 67. CPK 53. CK-MB 1.57. Total protein 6.8. Albumin is 3.5. The other troponins are 0.825, 0.73, and first one is 0.044. ASSESSMENT: In summary, Mrs. Holland is a 77-year-old elderly female with hypertension, diabetes, hyperlipidemia, chronic kidney disease, coronary artery disease, status post coronary artery bypass graft, who was admitted with chest pressure and shortness of breath. Chest x-ray consistent with congestive heart failure and also elevated troponin levels. 1. Chronic kidney disease 3, most likely secondary to hypertensive nephrosclerosis, cannot rule out renal vascular disease. 2. [id number] myocardial infarction. 3. Congestive heart failure. 4. Hypertension. 5. Diabetes. 6. Coronary artery disease, status post coronary artery bypass graft and status post stent placement. We will follow up ultrasound of the kidney report and also we will check phosphorus and PTH level. The patient will have a moderate risk for the contrast-induced nephropathy. For the contrast-induced nephropathy, consider gentle IV hydration and Mucomyst prior to the cardiac cath. We will follow with you. Thank you for allowing me to participate in your patient's care. Anthony Garrett MD
[2018-04-04] MEDS: Aluminum Hydroxide/Magnesium Hydroxide Susp (30 mL) PO SCH ×2 (13:33→22:13)
[2018-04-04] MEDS: Sodium Chloride Nasal 0.65% Soln (30ml) NAS SCH ×2 (14:04→21:05)
--- NOTE | 2018-04-04 14:25 | CP.PCM.PN ---
Subjective - Date & Time of Evaluation Date of Evaluation: 04/04/18 Time of Evaluation: 14:18 - Subjective Subjective: No new complaints Objective - Vital Signs/Intake and Output Vital Signs (last 24 hours): Temp Pulse Resp BP Pulse Ox 98.2 F 58 L 20 144/75 95 04/04/18 08:41 04/04/18 13:35 04/04/18 08:41 04/04/18 13:35 04/04/18 08:41 - Medications Medications: Current Medications Acetaminophen (Tylenol 325mg Tab) 650 mg PO Q6 PRN PRN Reason: LEG CRAMPS Last Admin: 03/31/18 09:40 Dose: 650 mg Al Hydrox/Mg Hydrox/Simethicone (Maalox 30 Ml) 15 ml PO Q8H [facility] Last Admin: 04/04/18 13:33 Dose: 15 ml Aspirin (Aspirin) 325 mg PO DAILY [facility] Last Admin: 04/04/18 10:11 Dose: 325 mg Clopidogrel Bisulfate (Plavix) 75 mg PO DAILY [facility] Last Admin: 04/04/18 09:18 Dose: 75 mg Famotidine (Pepcid) 20 mg PO DAILY [facility] Last Admin: 04/04/18 09:18 Dose: 20 mg Furosemide (Lasix) 20 mg PO DAILY [facility] Last Admin: 04/04/18 09:18 Dose: 20 mg Hydralazine HCl (Apresoline) 25 mg PO Q8 [facility] Last Admin: 04/04/18 13:33 Dose: 25 mg Sodium Chloride (Sodium Chloride 0.9%) 1,000 mls @ 50 mls/hr IV .Q20H ONE Stop: 04/06/18 01:59 Insulin Aspart (Novolog) 0 unit SC ACHS [facility] PRN Reason: Protocol Last Admin: 04/04/18 12:14 Dose: 2 u Metoprolol Tartrate (Lopressor) 25 mg PO BID [facility] Last Admin: 04/04/18 09:17 Dose: 25 mg Ondansetron HCl (Zofran Inj) 4 mg IVP Q6 PRN PRN Reason: Nausea/Vomiting Last Admin: 04/04/18 11:50 Dose: 4 mg Rosuvastatin Calcium (Crestor) 10 mg PO HS [facility] Last Admin: 04/03/18 21:37 Dose: 10 mg Sodium Chloride ([place] Baby Saline 30 Ml) 50 ml ML Q8H [facility] Last Admin: 04/04/18 14:04 Dose: 1 spr Zolpidem Tartrate (Ambien) 5 mg PO HS PRN PRN Reason: Insomnia Last Admin: 04/03/18 21:43 Dose: 5 mg - Labs Labs: 04/02/18 07:31 04/03/18 07:56 PT 12.3 SECONDS (9.7-12.2) H 04/01/18 06:09 INR 1.1 04/01/18 06:09 APTT 33 SECONDS (21-34) 03/28/18 03:55 - Head Exam Head Exam: NORMOCEPHALIC - Neck Exam Neck Exam: Normal Inspection - Respiratory Exam Respiratory Exam: NORMAL BREATHING PATTERN - Cardiovascular Exam Cardiovascular Exam: REGULAR RHYTHM - Extremities Exam Extremities Exam: Normal Inspection - Neurological Exam Neurological Exam: Alert, Oriented x3 Assessment and Plan (1) Acute [place] Assessment & Plan: NPO after breakfast, check labs if no new change in creatinine. Status: Acute (2) Congestive heart failure Assessment & Plan: Diuretics, with fluid restriction. Status: Acute
--- NOTE | 2018-04-04 17:13 | CP.PCM.PN ---
Subjective - Date & Time of Evaluation Date of Evaluation: 04/04/18 Time of Evaluation: 17:12 - Subjective Subjective: pt is seen and examined, follow up consult is dictated # for possible cath today pt will have mild-moderate rsik for JONATHAN, , risk of need for HD is about 12 % Objective - Vital Signs/Intake and Output Vital Signs (last 24 hours): Temp Pulse Resp BP Pulse Ox 97.5 F L 56 L 20 142/63 98 04/04/18 15:00 04/04/18 15:00 04/04/18 15:00 04/04/18 15:00 04/04/18 15:00 - Medications Medications: Current Medications Acetaminophen (Tylenol 325mg Tab) 650 mg PO Q6 PRN PRN Reason: LEG CRAMPS Last Admin: 03/31/18 09:40 Dose: 650 mg Al Hydrox/Mg Hydrox/Simethicone (Maalox 30 Ml) 15 ml PO Q8H [facility] Last Admin: 04/04/18 13:33 Dose: 15 ml Aspirin (Aspirin) 325 mg PO DAILY [facility] Last Admin: 04/04/18 10:11 Dose: 325 mg Clopidogrel Bisulfate (Plavix) 75 mg PO DAILY [facility] Last Admin: 04/04/18 09:18 Dose: 75 mg Famotidine (Pepcid) 20 mg PO DAILY [facility] Last Admin: 04/04/18 09:18 Dose: 20 mg Furosemide (Lasix) 20 mg PO DAILY [facility] Last Admin: 04/04/18 09:18 Dose: 20 mg Hydralazine HCl (Apresoline) 25 mg PO Q8 [facility] Last Admin: 04/04/18 13:33 Dose: 25 mg Sodium Chloride (Sodium Chloride 0.9%) 1,000 mls @ 50 mls/hr IV .Q20H ONE Stop: 04/06/18 01:59 Insulin Aspart (Novolog) 0 unit SC ACHS [facility] PRN Reason: Protocol Last Admin: 04/04/18 12:14 Dose: 2 u Metoprolol Tartrate (Lopressor) 25 mg PO BID [facility] Last Admin: 04/04/18 09:17 Dose: 25 mg Ondansetron HCl (Zofran Inj) 4 mg IVP Q6 PRN PRN Reason: Nausea/Vomiting Last Admin: 04/04/18 11:50 Dose: 4 mg Rosuvastatin Calcium (Crestor) 10 mg PO HS [facility] Last Admin: 04/03/18 21:37 Dose: 10 mg Sodium Chloride ([place] Baby Saline 30 Ml) 50 ml ML Q8H [facility] Last Admin: 04/04/18 14:04 Dose: 1 spr Zolpidem Tartrate (Ambien) 5 mg PO HS PRN PRN Reason: Insomnia Last Admin: 04/03/18 21:43 Dose: 5 mg - Labs Labs: 04/02/18 07:31 04/03/18 07:56 PT 12.3 SECONDS (9.7-12.2) H 04/01/18 06:09 INR 1.1 04/01/18 06:09 APTT 33 SECONDS (21-34) 03/28/18 03:55
--- NOTE | 2018-04-04 23:55 | CP.PCM.PN ---
Subjective - Date & Time of Evaluation Date of Evaluation: 04/04/18 Time of Evaluation: 18:40 - Subjective Subjective: Pt seen & examined at bedside, she is doing better, lesss short of breath, she needs angiogram. no chest pain, her creatinine is high so angigram on hold Objective - Vital Signs/Intake and Output Vital Signs (last 24 hours): Temp Pulse Resp BP Pulse Ox 97.5 F L 60 20 128/70 99 04/04/18 22:11 04/04/18 23:10 04/04/18 23:10 04/04/18 22:11 04/04/18 22:11 - Medications Medications: Current Medications Acetaminophen (Tylenol 325mg Tab) 650 mg PO Q6 PRN PRN Reason: LEG CRAMPS Last Admin: 03/31/18 09:40 Dose: 650 mg Al Hydrox/Mg Hydrox/Simethicone (Maalox 30 Ml) 15 ml PO Q8H REPLACED BY [facility] Last Admin: 04/04/18 22:13 Dose: 15 ml Aspirin (Aspirin) 325 mg PO DAILY REPLACED BY [facility] Last Admin: 04/04/18 10:11 Dose: 325 mg Clopidogrel Bisulfate (Plavix) 75 mg PO DAILY REPLACED BY [facility] Last Admin: 04/04/18 09:18 Dose: 75 mg Famotidine (Pepcid) 20 mg PO DAILY REPLACED BY [facility] Last Admin: 04/04/18 09:18 Dose: 20 mg Furosemide (Lasix) 20 mg PO DAILY REPLACED BY [facility] Last Admin: 04/04/18 09:18 Dose: 20 mg Hydralazine HCl (Apresoline) 25 mg PO Q8 REPLACED BY [facility] Last Admin: 04/04/18 22:15 Dose: 25 mg Insulin Aspart (Novolog) 0 unit SC ACHS REPLACED BY [facility] PRN Reason: Protocol Last Admin: 04/04/18 22:14 Dose: Not Given Metoprolol Tartrate (Lopressor) 25 mg PO BID REPLACED BY [facility] Last Admin: 04/04/18 21:00 Dose: Not Given Ondansetron HCl (Zofran Inj) 4 mg IVP Q6 PRN PRN Reason: Nausea/Vomiting Last Admin: 04/04/18 11:50 Dose: 4 mg Rosuvastatin Calcium (Crestor) 10 mg PO HS REPLACED BY [facility] Last Admin: 04/04/18 22:13 Dose: 10 mg Sodium Chloride ([place] Baby Saline 30 Ml) 50 ml ML Q8H REPLACED BY [facility] Last Admin: 04/04/18 21:05 Dose: 1 spr Zolpidem Tartrate (Ambien) 5 mg PO HS PRN PRN Reason: Insomnia Last Admin: 04/04/18 23:13 Dose: 5 mg - Labs Labs: 04/02/18 07:31 04/03/18 07:56 PT 12.3 SECONDS (9.7-12.2) H 04/01/18 06:09 INR 1.1 04/01/18 06:09 APTT 33 SECONDS (21-34) 03/28/18 03:55 - Constitutional Appears: Combative - Eye Exam Eye Exam: EOMI, Normal appearance, PERRL Pupil Exam: NORMAL ACCOMODATION, PERRL - ENT Exam ENT Exam: Mucous Membranes Moist, Normal Exam - Neck Exam Neck Exam: Full ROM, Normal Inspection. absent: Lymphadenopathy - Respiratory Exam Respiratory Exam: Decreased Breath Sounds, Rales, Rhonchi - Cardiovascular Exam Cardiovascular Exam: REGULAR RHYTHM, +S1, +S2. absent: Murmur - GI/Abdominal Exam GI & Abdominal Exam: Soft, Normal Bowel Sounds. absent: Tenderness Assessment and Plan (1) Acute [place] Status: Acute (2) Congestive heart failure Status: Acute (3) Uncontrolled hypertension Status: Acute (4) PAD (peripheral artery disease) Assessment & Plan: pending angiogram Status: Acute (5) Type 2 diabetes mellitus Status: Acute
--- NOTE | 2018-04-05 02:34 | PN ---
Copied To: Anthony Garrett MD Attending MD: Anthony Garrett MD DATE: 04/04/2018 LOCATION: The patient is located in room 669, bed B. REQUESTED BY: Dillan Menendez MD REASON FOR FOLLOWUP: Chronic kidney disease. HISTORY OF PRESENT ILLNESS: Mrs. Holland is a 77-year-old elderly female with a past medical history significant for longstanding hypertension, diabetes, hyperlipidemia, coronary artery disease, status post CABG, status post stents who was admitted with chest discomfort and shortness of breath and elevated troponin levels. The patient is not in acute distress. Denies any headache, dizziness. Denies any chest pain or palpitation at this time. No nausea, vomiting, diarrhea. PHYSICAL EXAMINATION: VITAL SIGNS: Her vital signs are as follows: Blood pressure 142/63, pulse 56, respirations 20, temperature 97.5, saturation 98%. Height 5 feet 4 inches, weight is 188 pounds. GENERAL: Mrs. Holland is a 77-year-old elderly female, moderately built, moderately nourished, not in distress. HEENT: Pupils normal and reactive to light and accommodation. Conjunctivae pink. Sclerae anicteric. Tongue is moist. Trachea is midline. LUNGS: Symmetric on both sides. Bilateral breath sounds present. Occasional basal crackles present. CVS: [place] at the fifth intercostal space, midclavicular line. S1, S2 audible. No murmur or gallop. ABDOMEN: Normal in appearance, soft, tympanic. No guarding. No rigidity. No hepatosplenomegaly. BOTTLE CASER: The patient is alert, awake, oriented x3. Nonfocal neuro examination. Cranial nerves II through XII grossly intact. Sensory and motor system is within normal limits. EXTREMITIES: No cyanosis, no clubbing, no edema. MEDICATIONS: Current medications include as follows: Ambien 5 mg at bedtime, hydralazine 25 mg p.o. every 8 hours, aspirin 325 mg p.o. daily, IV fluids normal saline at 50 mL/hour, Crestor 10 mg at bedtime, Lasix 20 mg p.o. daily, Lopressor 25 mg p.o. b.i.d., Maalox, NovoLog for sliding scale, Pepcid 20 mg p.o. daily, Plavix 75 mg p.o. daily, Tylenol and Zofran. LABORATORY DATA: Include as of 04/03/2018, sodium 131, potassium is 5, chloride 95, CO2 of 26, BUN 41, creatinine 2.1, GFR is about 23, glucose is 156, calcium 8.8. IMPRESSION: In summary, Mrs. Holland is a 77-year-old elderly female with hypertension, diabetes, coronary artery disease, status post coronary artery bypass graft, status post stents, hyperlipidemia, chronic kidney disease who was admitted with chest discomfort and shortness of breath and plan for possible cardiac cath. 1. Chronic kidney disease IV. Most likely secondary to multifactorial hypertensive nephrosclerosis and advancing age and cannot rule out renovascular disease in view of asymmetry in the renal size; and on ultrasound, the right kidney is 9.6 cm and the left kidney is 8.2 cm; and simple cyst in both kidneys, the largest on the right upper pole measures 2.4 cm, normal size right kidney and small left kidney. The patient has a GFR about 25 mL/minute, and the patient will have a moderate risk for contrast induced nephropathy about 50% and chance need to go on dialysis temporary is about 12%, discussed with the patient and the patient's family at bedside. The patient is somewhat reluctant to undergo cardiac cath at this time. The patient is aware of the risk of the contrast-induced nephropathy , that is the reason she was reluctant to undergo cardiac cath in [place]. 2. Hypertension. Continue antihypertensive medications and titrate as needed. 3. Congestive heart failure. Continue Lasix. Anthony Garrett MD
[2018-04-05] MEDS: Sodium Chloride Nasal 0.65% Soln (30ml) NAS SCH ×2 (05:02→11:59)
[2018-04-05] MEDS: Aluminum Hydroxide/Magnesium Hydroxide Susp (30 mL) PO SCH ×2 (05:02→13:47)
[2018-04-05] MEDS ORDERED: Sodium Chloride 0.9% 1,000 ML IV ONE (06:00)
[2018-04-05] MEDS: (Novolog) Insulin Aspart, Recombinant 100 u/ml 10 ml vial SC SCH ×2 (07:58→11:52)
[2018-04-05 08:30] LABS: CALCIUM 8.8 mg/dl (8.6-10.4)
[2018-04-05 16:40] VITALS: BP 136/64; PULSE 57; TEMP 98.1; O2SAT 97
--- NOTE | 2018-04-05 17:14 | CP.PCM.PN ---
Subjective - Date & Time of Evaluation Date of Evaluation: 04/05/18 Time of Evaluation: 17:13 - Subjective Subjective: pt is seen and examined, follow up consult is dictated #[id number] Objective - Vital Signs/Intake and Output Vital Signs (last 24 hours): Temp Pulse Resp BP Pulse Ox 98.1 F 57 L 20 136/64 97 04/05/18 15:00 04/05/18 15:00 04/05/18 15:00 04/05/18 15:00 04/05/18 15:00 Intake and Output: 04/05/18 04/05/18 06:59 18:59 Intake Total 480 640 Balance 480 640 - Medications Medications: Current Medications Acetaminophen (Tylenol 325mg Tab) 650 mg PO Q6 PRN PRN Reason: LEG CRAMPS Last Admin: 03/31/18 09:40 Dose: 650 mg Al Hydrox/Mg Hydrox/Simethicone (Maalox 30 Ml) 15 ml PO Q8H [facility] Last Admin: 04/05/18 13:47 Dose: 15 ml Aspirin (Aspirin) 325 mg PO DAILY [facility] Last Admin: 04/05/18 09:39 Dose: 325 mg Clopidogrel Bisulfate (Plavix) 75 mg PO DAILY [facility] Last Admin: 04/05/18 09:40 Dose: 75 mg Famotidine (Pepcid) 20 mg PO DAILY [facility] Last Admin: 04/05/18 09:39 Dose: 20 mg Furosemide (Lasix) 20 mg PO DAILY [facility] Last Admin: 04/04/18 09:18 Dose: 20 mg Hydralazine HCl (Apresoline) 25 mg PO Q8 [facility] Last Admin: 04/05/18 13:47 Dose: 25 mg Insulin Aspart (Novolog) 0 unit SC ACHS [facility] PRN Reason: Protocol Last Admin: 04/05/18 11:52 Dose: Not Given Metoprolol Tartrate (Lopressor) 25 mg PO BID [facility] Last Admin: 04/05/18 11:02 Dose: 25 mg Ondansetron HCl (Zofran Inj) 4 mg IVP Q6 PRN PRN Reason: Nausea/Vomiting Last Admin: 04/04/18 11:50 Dose: 4 mg Rosuvastatin Calcium (Crestor) 10 mg PO HS [facility] Last Admin: 04/04/18 22:13 Dose: 10 mg Sodium Chloride ([place] Baby Saline 30 Ml) 50 ml ML Q8H [facility] Last Admin: 04/05/18 11:59 Dose: 1 spr Zolpidem Tartrate (Ambien) 5 mg PO HS PRN PRN Reason: Insomnia Last Admin: 04/04/18 23:13 Dose: 5 mg - Labs Labs: 04/02/18 07:31 04/05/18 08:03 PT 12.3 SECONDS (9.7-12.2) H 04/01/18 06:09 INR 1.1 04/01/18 06:09 APTT 33 SECONDS (21-34) 03/28/18 03:55
--- NOTE | 2018-04-05 17:17 | CP.PCM.PN ---
Subjective - Date & Time of Evaluation Date of Evaluation: 04/05/18 Time of Evaluation: 17:16 - Subjective Subjective: No new complaints. Cath was cancelled due to rising creatinine. Objective - Vital Signs/Intake and Output Vital Signs (last 24 hours): Temp Pulse Resp BP Pulse Ox 98.1 F 57 L 20 136/64 97 04/05/18 15:00 04/05/18 15:00 04/05/18 15:00 04/05/18 15:00 04/05/18 15:00 Intake and Output: 04/05/18 04/05/18 06:59 18:59 Intake Total 480 640 Balance 480 640 - Medications Medications: Current Medications Acetaminophen (Tylenol 325mg Tab) 650 mg PO Q6 PRN PRN Reason: LEG CRAMPS Last Admin: 03/31/18 09:40 Dose: 650 mg Al Hydrox/Mg Hydrox/Simethicone (Maalox 30 Ml) 15 ml PO Q8H [facility] Last Admin: 04/05/18 13:47 Dose: 15 ml Aspirin (Aspirin) 325 mg PO DAILY [facility] Last Admin: 04/05/18 09:39 Dose: 325 mg Clopidogrel Bisulfate (Plavix) 75 mg PO DAILY [facility] Last Admin: 04/05/18 09:40 Dose: 75 mg Famotidine (Pepcid) 20 mg PO DAILY [facility] Last Admin: 04/05/18 09:39 Dose: 20 mg Furosemide (Lasix) 20 mg PO DAILY [facility] Last Admin: 04/04/18 09:18 Dose: 20 mg Hydralazine HCl (Apresoline) 25 mg PO Q8 [facility] Last Admin: 04/05/18 13:47 Dose: 25 mg Insulin Aspart (Novolog) 0 unit SC ACHS [facility] PRN Reason: Protocol Last Admin: 04/05/18 11:52 Dose: Not Given Metoprolol Tartrate (Lopressor) 25 mg PO BID [facility] Last Admin: 04/05/18 11:02 Dose: 25 mg Ondansetron HCl (Zofran Inj) 4 mg IVP Q6 PRN PRN Reason: Nausea/Vomiting Last Admin: 04/04/18 11:50 Dose: 4 mg Rosuvastatin Calcium (Crestor) 10 mg PO HS [facility] Last Admin: 04/04/18 22:13 Dose: 10 mg Sodium Chloride ([place] Baby Saline 30 Ml) 50 ml ML Q8H [facility] Last Admin: 04/05/18 11:59 Dose: 1 spr Zolpidem Tartrate (Ambien) 5 mg PO HS PRN PRN Reason: Insomnia Last Admin: 04/04/18 23:13 Dose: 5 mg - Labs Labs: 04/02/18 07:31 04/05/18 08:03 PT 12.3 SECONDS (9.7-12.2) H 04/01/18 06:09 INR 1.1 04/01/18 06:09 APTT 33 SECONDS (21-34) 03/28/18 03:55 - Head Exam Head Exam: NORMOCEPHALIC - Neck Exam Neck Exam: Normal Inspection - Respiratory Exam Respiratory Exam: NORMAL BREATHING PATTERN - Cardiovascular Exam Cardiovascular Exam: REGULAR RHYTHM, Murmur - Extremities Exam Extremities Exam: Normal Inspection - Neurological Exam Neurological Exam: Alert, Oriented x3 Assessment and Plan (1) Acute [place] Assessment & Plan: Cath cancelled, discussed with family. Medical management. Risk factor modification. January D/C home. Status: Acute (2) Congestive heart failure Assessment & Plan: Stable and improved, Recommendations as before. Follow-up as out patient. Mat D/ C home. Discussed with daughter. Status: Acute
[2018-04-05] MEDS ORDERED: (Lantus) Insulin Glargine, Recombinant SC STA (21:52)
--- NOTE | 2018-04-06 00:57 | CP.PCM.DIS ---
Provider - Provider Date of Admission: 03/28/18 05:04 Attending physician: Dillan Menendez MD Time Spent in preparation of Discharge (in minutes): 45 Diagnosis - Discharge Diagnosis (1) Acute [place] Status: Acute (2) Congestive heart failure Status: Acute (3) Uncontrolled hypertension Status: Acute (4) PAD (peripheral artery disease) Status: Acute (5) Type 2 diabetes mellitus Status: Acute Hospital Course - Lab Results Lab Results: Micro Results 04/02/18 19:05 Naris MRSA Culture - Final MRSA NOT DETECTED 03/28/18 08:40 N[facility] MRSA Culture (Admit) - Final MRSA NOT DETECTED Most Recent Lab Values WBC 10.2 K/uL (4.8-10.8) 04/02/18 07:31 RBC 3.92 Mil/uL (3.80-5.20) 04/02/18 07:31 Hgb 11.0 g/dL (11.0-16.0) 04/02/18 07: Hct 32.8 % (34.0-47.0) L 04/02/18 07:31 MCV 83.7 fL (81.0-99.0) 04/02/18 07:31 MCH 28.0 pg (27.0-31.0) 04/02/18 07:31 MCHC 33.5 g/dL (33.0-37.0) 04/02/18 07:31 RDW 15.6 % (11.5-14.5) H 04/02/18 07:31 Plt Count 295 K/uL (130-400) 04/02/18 07:31 MPV 9.1 fL (7.2-11.7) 04/02/18 07:31 Neut % (Auto) 63.0 % (50.0-75.0) 04/02/18 07:31 Lymph % (Auto) 24.0 % (20.0-40.0) 04/02/18 07:31 [place] % (Auto) 9.8 % (0.0-10.0) 04/02/18 07:31 Eos % (Auto) 2.8 % (0.0-4.0) 04/02/18 07:31 Baso % (Auto) 0.4 % (0.0-2.0) 04/02/18 07:31 Neut # (Auto) 6.4 K/uL (1.8-7.0) 04/02/18 07:31 Lymph # (Auto) 2.5 K/uL (1.0-4.3) 04/02/18 07:31 [place] # (Auto) 1.0 K/uL (0.0-0.8) H 04/02/18 07:31 Eos # (Auto) 0.3 K/uL (0.0-0.7) 04/02/18 07:31 Baso # (Auto) 0.0 K/uL (0.0-0.2) 04/02/18 07:31 PT 12.3 SECONDS (9.7-12.2) H 04/01/18 06:09 INR 1.1 04/01/18 06:09 APTT 33 SECONDS (21-34) 03/28/18 03:55 Sodium 130 mmol/L (132-148) L 04/05/18 08:03 Potassium 4.9 mmol/L (3.6-5.2) 04/05/18 08:03 Chloride 92 mmol/L (98-107) L 04/05/18 08:03 Carbon Dioxide 29 mmol/L (22-30) 04/05/18 08:03 Anion Gap 14 (10-20) 04/05/18 08:03 BUN 35 mg/dL (7-17) H 04/05/18 08:03 Creatinine 2.4 mg/dL (0.7-1.2) H 04/05/18 08:03 Est GFR ( Amer) 24 04/05/18 08:03 Est GFR (Non-Af Amer) 20 04/05/18 08:03 POC Glucose (mg/dL) 234 mg/dL (65-110) H 04/05/18 21:06 Random Glucose 159 mg/dL (65-105) H 04/05/18 08:03 Calcium 8.8 mg/dl (8.6-10.4) 04/05/18 08:03 Phosphorus 4.9 mg/dL (2.5-4.5) H 04/03/18 19:54 Magnesium 2.1 mg/dL (1.6-2.3) 03/30/18 06:14 Total Bilirubin 0.3 mg/dL (0.2-1.3) 04/02/18 06:31 AST 27 U/L (14-36) 04/02/18 06:31 ALT 26 U/L (9-52) 04/02/18 06:31 Alkaline Phosphatase 78 U/L (38-126) 04/02/18 06:31 Total Creatine Kinase 53 U/L (30-135) 03/29/18 06:18 CK-MB (Mass) 1.57 ng/mL (0.0-3.38) 03/29/18 06:18 Troponin I 0.6380 ng/mL (0.00-0.120) H* 03/29/18 06:18 NT-Pro-B Natriuret Pep 6710 pg/mL (0-900) H 03/28/18 03:55 Total Protein 7.4 g/dL (6.3-8.3) 04/02/18 06:31 Albumin 3.8 g/dL (3.5-5.0) 04/02/18 06:31 Globulin 3.6 gm/dL (2.2-3.9) 04/02/18 06:31 Albumin/Globulin Ratio 1.0 (1.0-2.1) 04/02/18 06:31 Triglycerides 102 mg/dL (0-149) 03/28/18 05:59 Cholesterol 205 mg/dL (0-199) H 03/28/18 05:59 LDL Cholesterol Direct 148 mg/dL (0-129) H 03/28/18 05:59 HDL Cholesterol 28 mg/dL (30-70) L 03/28/18 05:59 PTH Intact Whole Molec 56 pg/mL (14-64) 04/03/18 19:54 Urine Color Straw (YELLOW) 03/28/18 09:53 Urine Clarity Hazy (Clear) 03/28/18 09:53 Urine pH 5.0 (5.0-8.0) 03/28/18 09:53 Ur Specific [place] 1.004 (1.003-1.030) 03/28/18 09:53 Urine Protein Negative mg/dL (NEGATIVE) 03/28/18 09:53 Urine Glucose (UA) Normal mg/dL (Normal) 03/28/18 09:53 Urine Ketones Negative mg/dL (NEGATIVE) 03/28/18 09:53 Urine Blood Trace (NEGATIVE) H 03/28/18 09:53 Urine Nitrate Negative (NEGATIVE) 03/28/18 09:53 Urine Bilirubin Negative (NEGATIVE) 03/28/18 09:53 Urine Urobilinogen Normal mg/dL (0.2-1.0) 03/28/18 09:53 Ur Leukocyte Esterase Neg [place]/uL (Negative) 03/28/18 09:53 Urine WBC (Auto) 2 /hpf (0-5) 03/28/18 09:53 Urine RBC (Auto) 10 /hpf (0-3) H 03/28/18 09:53 Ur Squamous Epith Cells < 1 /hpf (0-5) 03/28/18 09:53 Urine Bacteria Rare (<OCC) 03/28/18 09:53 - Hospital Course Hospital Course: Pt is for discharge, less short of breath, no chest pain, creatinine is chronically elevated, hold on angiogram as per renal and continue medical managmnet trial if not improved then re admit for angiogram Discharge Exam - Head Exam Head Exam: NORMOCEPHALIC - Eye Exam Eye Exam: EOMI, Normal appearance, PERRL Pupil Exam: NORMAL ACCOMODATION, PERRL - ENT Exam ENT Exam: Mucous Membranes Moist - Respiratory Exam Respiratory Exam: Clear to PA & Lateral, NORMAL BREATHING PATTERN - Cardiovascular Exam Cardiovascular Exam: +S1, +S2 Additional comments: s3 positive - GI/Abdominal Exam GI & Abdominal Exam: Normal Bowel Sounds Discharge Plan - Discharge Medications Prescriptions: hydrALAZINE [Apresoline] 25 mg PO Q8 #120 tab Sodium Chloride [[place] Baby Saline 30 ml] 50 ml ML Q8H #1 bottle Losartan [Cozaar] 50 mg PO DAILY #30 tab Rosuvastatin Calcium [Crestor] 10 mg PO HS #30 tab Aspirin [Ecotrin] 81 mg PO DAILY #30 tabec Furosemide [Lasix] 20 mg PO DAILY #30 tab Metoprolol Tartrate [Lopressor] 25 mg PO BID #60 tab Clopidogrel [Plavix] 75 mg PO DAILY #30 tab Prilosec 20 mg PO DAILY #30 - Follow Up Plan Condition: GOOD Disposition: HOME/ ROUTINE Instructions: Heart Failure, Adult (DC), High Blood Pressure (DC), Heart Attack (DC) Additional Instructions: -FOLLOW UP WITH DR. MENENDEZ IN THE OFFICE IN 5-7 DAYS----CALL THE OFFICE FOR AN APPOINTMENT TIME. -FOLLOW UP WITH DR. BURLESON (KIDNEY DOCTOR) IN THE OFFICE IN 1-2 WEEKS---- CALL THE OFFICE FOR AN APPOINTMENT TIME. -FOLLOW UP WITH DR. DAVILA (HEART DOCTOR) IN THE OFFICE IN 1-2 WEEKS----CALL THE OFFICE FOR AN APPOINTMENT TIME. -CONTINUE ALL MEDICATIONS EXACTLY PRESCRIBED: 1) ASPIRIN 81 MG---FOR YOUR HEART---TAKE 1 TABLET BY MOUTH ONCE A DAY. 2) PLAVIX 75 MG---FOR YOUR HEART---TAKE 1 TABLET BY MOUTH ONCE A DAY. 3) LASIX 20 MG---WATER PILL---TAKE 1 TABLET BY MOUTH ONCE A DAY. 4) HYDRALAZINE 25 MG---FOR YOUR HEART---TAKE 1 TABLET BY MOUTH 3 TIMES A DAY ( MORNING, AFTERNOON, AND EVENING). 5) LOSARTAN 50 MG---FOR YOUR HEART AND BLOOD PRESSURE---TAKE 1 TABLET BY MOUTH ONCE A DAY. 6) METOPROLOL 25 MG---FOR YOUR HEART AND BLOOD PRESSURE---TAKE 1 TABLET BY MOUTH 2 TIMES A DAY. 7) CRESTOR 10 MG---FOR YOUR CIRCULATION AND CHOLESTEROL---TAKE 1 TABLET BY MOUTH AT BEDTIME. 8) NASAL SPRAY 9) PRILOSEC 20 MG---FOR YOUR STOMACH---TAKE 1 TABLET BY MOUTH ONCE A DAY. -FOR FURTHER ORDERS, CONTACT DR. MENENDEZ. Referrals: Rj Davila MD [Staff Provider] - Anthony Burleson MD [Staff Provider] - Dillan Menendez MD [Staff Provider] - Elias Avalos Jr., MD [Staff Provider] - Esteban Araya DPM [Staff Provider] -
--- NOTE | 2018-04-08 07:04 | PN ---
Copied To: Anthoyn Garrett MD Attending MD: Anthony Garrett MD DATE: 04/05/2018 LOCATION: The patient is located in room 669, bed B. REQUESTED BY: Dillan Menendez MD. REASON FOR FOLLOWUP: Chronic kidney disease, NSTEMI, hypertension, diabetes, for further evaluation. HISTORY OF PRESENT ILLNESS: Mrs. Holland is a 77-year-old elderly female with a past medical history significant for longstanding hypertension, diabetes, sleep apnea, coronary artery disease, status post CABG, status post stent in 2016, chronic kidney disease who was admitted with episode of shortness of breath, especially on exertion. Found to have elevated troponin levels. The patient was initially scheduled for a cardiac cath today, but the patient was found to have unilateral GFR about 23 mL and the patient will have moderate risk for contrast induced nephropathy and need for dialysis about 10% to 12%, and the patient is aware of the risk. The patient does not cardiac cath at this time. Denies any headache, dizziness. Denies any chest pain or palpitation. Denies . No abdominal pain, no nausea, vomiting, diarrhea. No fever, no cough. PHYSICAL EXAMINATION: GENERAL: Mrs. Holland is a 77-year-old elderly female, moderately built, moderately nourished, not in acute distress. VITAL SIGNS: This afternoon, blood pressure 136/64, pulse 57, respirations 20, temperature , height 5 feet 4 inches and weight is 188 pounds. HEENT: Pupils normal and reactive to light and accommodation. Conjunctivae pink. Sclerae nonicteric. Tongue is moist. Trachea is midline. LUNGS: Symmetric on both sides bilaterally. Bilateral basal crackles. CVS: [place] at the fifth intercostal space, midclavicular line. S1, S2 audible. No murmur, gallop. ABDOMEN: Normal in appearance. Soft, tympanitic. No guarding. No rigidity. No hepatosplenomegaly. EXCELLENCE MANAGER: The patient is awake, alert, and oriented x3. Nonfocal neuro examination. Cranial nerves II through XII grossly intact. Sensory and motor system is within normal limits. EXTREMITIES: No cyanosis, no clubbing. MEDICATIONS: Current medications include as follows: Ambien 5 mg p.o. at bedtime, hydralazine 25 mg p.o. every 8 hours, aspirin 325 mg p.o. daily, Crestor 10 mg p.o. at bedtime, Lasix 20 mg p.o. daily, metoprolol 25 mg p.o. b.i.d., NovoLog for sliding scale, Pepcid 20 mg p.o. daily, Plavix every 6 hours p.r.n and Zofran 4 mg p.r.n. LABORATORY DATA: Include as follows: As of 04/05/2018, sodium is 140, potassium 4.9, chloride 92, CO2 of 29, . Accu-Cheks are 144, 138, 232. IMPRESSION: In summary, Mrs. Holland is a 77-year-old elderly female with longstanding hypertension, diabetes, hyperlipidemia, coronary artery disease, diabetes, status post stents , chronic kidney disease with asymmetry in the renal size, right kidney about 9.6 cm and left kidney 8.2 cm, bilateral renal failure and GFR about 20 to 25 mL per minute. 1. 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 2. Hypertension. 3. Congestive heart failure. . 4. Non-ST elevation myocardial infarction. The patient will have a moderate risk for contrast induced nephropathy, . The patient does not want any cardiac catheterization at this time. Continue monitoring BNP. Thank you for allowing me to participate in your patient's care. Anthony Garrett MD
--- NOTE | 2018-04-08 16:00 | IP.NPCORE ---
Heart Failure Core Measure - Heart Failure Ejection Fraction: Less Than 40 % TATIANA Inhibitor Prescribed: No Contraindication/Reason for not providing: on arb Beta-Sonya Prescribed: None Contraindication/Reason for not providing: lopressor bid Angiotensin II Receptor Sonya Prescribed: Yes AnticoagulationTherapy for Atrial Fibrillation/Atrialflutter: No Contraindication/Reason for not providing: no afib Aldosterone Antagonist Prescribed: No Contraindication/Reason for not providing: renal insufficiency Hydralazine Nitrate Prescribed: Yes Implantable Cardioverter Defibrillator Therapy: No Contraindication/Reason for not providing: med managament Cardiac Resynchronization Therapy Prescribed: No Contraindication/Reason for not providing: med management - Follow up Will be discharged to: Home Follow Up Date (must be within 7 days from discharge): 04/10/18 Follow Up Time: 09:00
== END 2018-04-05 22:20 | disposition home or self-care (01) | DRG 281 ==
LOC: C.ER 03:31 → C.9E 05:04 → C.9I 06:13 → C.6T 04-02 17:45
PROVIDERS: ADMIT Internal Medicine; ATTEND Internal Medicine
DX: I13.0 Hypertensive heart and chronic kidney disease with heart failure and stage 1 through stage 4 chronic kidney disease, or unspecified chronic kidney disease (principal); I21.4 Non-ST elevation (NSTEMI) myocardial infarction; I50.20 Unspecified systolic (congestive) heart failure; I25.10 Atherosclerotic heart disease of native coronary artery without angina pectoris; G47.30 Sleep apnea, unspecified; F17.210 Nicotine dependence, cigarettes, uncomplicated; E78.5 Hyperlipidemia, unspecified; E11.22 Type 2 diabetes mellitus with diabetic chronic kidney disease; E11.51 Type 2 diabetes mellitus with diabetic peripheral angiopathy without gangrene; I77.1 Stricture of artery; N18.3 Chronic kidney disease, stage 3 (moderate); Z95.1 Presence of aortocoronary bypass graft; Z53.09 Procedure and treatment not carried out because of other contraindication

== ENCOUNTER 2018-04-22 14:18 | Inpatient (IN) | payer OTHER, MEDICAID ==
[2018-04-22 14:30] VITALS: BMI 18.8
[2018-04-22 15:25] LABS: BASO # 0.1 K/uL (0.0-0.2); EOS # 0.3 K/uL (0.0-0.7); EOS % 2.8 % (0.0-4.0); HEMOGLOBIN 11.2 g/dL (11.0-16.0); LYMPH # 3.1 K/uL (1.0-4.3); MEAN CELL VOLUME 83.9 fL (81.0-99.0); MEAN CORPUSCULAR HEMOGLOBIN 28.7 pg (27.0-31.0); MEAN CORPUSCULAR HGB CONC 34.2 g/dL (33.0-37.0); MEAN PLATELET VOLUME 9.2 fL (7.2-11.7); MONO # 1.1 K/uL (0.0-0.8); MONO % 9.5 % (0.0-10.0); NEUT # 6.9 K/uL (1.8-7.0); NEUT % 59.7 % (50.0-75.0); NRBC % 0.1 % (0.0-2.0); RBC 3.9 Mil/uL (3.80-5.20); WHITE BLOOD COUNT 11.6 K/uL (4.8-10.8)
[2018-04-22 15:28] LABS: INR 1.1; PROTHROMBIN TIME 12.3 SECONDS (9.7-12.2)
--- NOTE | 2018-04-22 15:40 | C.PDOC ---
History Of Present Illness 77 year old female was sent to ER by Dr. Brewer for cardiac catheterization. Patient has Hx of valvular surgery, bradycardia, and had an TX last month. Patient states she feels weak sometimes but at this time has no pain or any other physical complaints. Time Seen by Provider: 04/22/18 14:42 Chief Complaint (Nursing): Chest Pain History Per: Patient History/Exam Limitations: no limitations Onset/Duration Of Symptoms: Hrs Current Symptoms Are (Timing): Still Present Recent travel outside of the [place] States: No Past Medical History Reviewed: Historical Data, Nursing Documentation, Vital Signs Vital Signs: Last Vital Signs Temp 97.4 F L 04/22/18 17:45 Pulse 58 L 04/22/18 17:45 Resp 18 04/22/18 17:45 BP 157/81 H 04/22/18 17:45 Pulse Ox 100 04/22/18 17:45 - Medical History PMH: CHF, HTN Surgical History: CABG, Cholecystectomy Family History: States: Unknown Family Hx - Social History Hx Alcohol Use: No Hx Substance Use: No Review Of Systems Constitutional: Positive for: Weakness. Negative for: Fever, Chills Cardiovascular: Negative for: Chest Pain Gastrointestinal: Negative for: Nausea, Vomiting, Abdominal Pain, Diarrhea Skin: Negative for: Rash Neurological: Negative for: Weakness, Numbness Physical Exam - Physical Exam Appears: Non-toxic, No Acute Distress Skin: Warm, Dry, No Rash Head: Atraumatic, Normacephalic Eye(s): bilateral: Normal Inspection, EOMI Oral Mucosa: Moist Neck: Normal ROM Chest: Symmetrical, No Tenderness Cardiovascular: Rhythm Regular (Bradycardic ) Respiratory: Normal Breath Sounds, No Decreased Breath Sounds, No Rales, No Rhonchi, No Wheezing Gastrointestinal/Abdominal: Bowel Sounds (Active ), Soft, No Tenderness, No Distention, No Guarding Extremity: No Pedal Edema Extremity: Bilateral: Atraumatic, Normal Color And Temperature, Normal ROM Neurological/Psych: Oriented x3, Normal Speech, Other (No focal deficits ) Gait: Steady ED Course And Treatment - Laboratory Results Result Diagrams: 04/22/18 15:04 04/22/18 15:53 Lab Interpretation: Abnormal ECG: Interpreted By Me, Viewed By Me ECG Rhythm: Sinus Bradycardia ECG Interpretation: No Acute Changes Interpretation Of ECG: Sinus bradycardia at 57bpm with sinus arrhythmaia and ST- T abnormality lateral leads Rate From EC O2 Sat by Pulse Oximetry: 98 (RA) Pulse Ox Interpretation: Normal - Other Rad CXR X-Ray: Viewed By Me, Read By Radiologist Interpretation: Chest x-ray single frontal view. History: Chest pain. Comparison: None available. Findings: Status post median sternotomy. Mild venous congestion. Mild patchy increased markings at the lung bases. Tortuous aorta. Top normal heart size. Degenerative changes in the spine and shoulders. Impression: Status post median sternotomy. Mild venous congestion. Mild patchy increased markings at the lung bases. Tortuous aorta. Top normal heart size. Degenerative changes in the spine and shoulders. Medical Decision Making Medical Decision Making: Impression: Sent by watch repair person for unstable angina and admission Plan: * Labs * EKG * CXR * environmental monitoring technician EKG: * Sinus Bradycardia at 57bpm with sinus arrhythmia * ST & T wave abnormalities, consider lateral ischemia * Abnormal EKG Progress: [address] Menendez who accepts patient to service. DR Brewer will take patient for cardiac catheterization tomorrow Disposition - Disposition Disposition: HOSPITALIZED Disposition Time: 15:40 Condition: STABLE - POA Present On Arrival: None - Clinical Impression Clinical Impression: Unstable angina - PA / DIRECTOR EMERGENCY DEPARTMENT / Resident Statement MD/DO has reviewed & agrees with the documentation as recorded. - Scribe Statement The provider has reviewed the documentation as recorded by the Scribroyal Le All medical record entries made by the Scribe were at my direction and personally dictated by me. I have reviewed the chart and agree that the record accurately reflects my personal performance of the history, physical exam, medical decision making, and the department course for this patient. I have also personally directed, reviewed, and agree with the discharge instructions and disposition. Decision To Admit - Pt Status Changed To: Hospital Disposition Of: Inpatient - Admit Certification Admit to Inpatient:: After my assessment, the patient will require hospitalization for at least two midnights. This is because of the severity of symptoms shown, intensity of services needed, and/or the medical risk in this patient being treated as an outpatient. - InPatient: Physician Admission Certification: I certify that this patient requires 2 or more midnights of care for the following reason:: Patient sent by watch repair person for procedure and admission - . Bed Request Type: Telemetry Admitting Physician: Dillan Menendez Patient Diagnosis: Unstable angina
[2018-04-22 15:51] LABS: SQUAMOUS EPITHIAL < 1 /hpf (0-5); URINE BACTERIA OCC (<OCC); URINE BILIRUBIN NEGATIVE (NEGATIVE); URINE BLOOD NEGATIVE (NEGATIVE); URINE CLARITY Clear (Clear); URINE COLOR Straw (YELLOW); URINE GLUCOSE (UA) NORMAL (Normal); URINE LEUKOCYTE ESTERASE NEG Leu/uL (Negative); URINE PROTEIN NEGATIVE (NEGATIVE); URINE UROBILINOGEN NORMAL mg/dL (0.2-1.0)
--- NOTE | 2018-04-22 16:06 | RAD ---
Chest x-ray single frontal view History: Chest pain. Comparison: None available. Findings: Status post median sternotomy. Mild venous congestion. Mild patchy increased markings at the lung bases. Tortuous aorta. Top normal heart size. Degenerative changes in the spine and shoulders. Impression: Status post median sternotomy. Mild venous congestion. Mild patchy increased markings at the lung bases. Tortuous aorta. Top normal heart size. Degenerative changes in the spine and shoulders.
[2018-04-22 16:19] LABS: ALB/GLOB RATIO 1.1 (1.0-2.1); CALCIUM 8.9 mg/dl (8.6-10.4)
[2018-04-22 16:29] LABS: TROPONIN I 0.051 ng/mL (0.00-0.120)
--- NOTE | 2018-04-22 20:24 | CP.PCM.CON ---
History of Present Illness - History of Present Illness History of Present Illness: Patient admitted with unstable angina Hx of UT and recent stents For cath in am Past Patient History - Past Medical History & Family History Past Medical History?: Yes - Past Social History Smoking Status: Former Smoker - CARDIAC Hx Congestive Heart Failure: Yes Hx Hypertension: Yes - PULMONARY Hx Respiratory Disorders: No - NEUROLOGICAL Hx Neurological Disorder: No - HEENT Hx HEENT Problems: No - RENAL Hx Chronic Kidney Disease: No - ENDOCRINE/METABOLIC Hx Endocrine Disorders: Yes Hx Diabetes Mellitus Type 2: Yes - HEMATOLOGICAL/ONCOLOGICAL Hx Blood Disorders: No - INTEGUMENTARY Hx Dermatological Problems: No - MUSCULOSKELETAL/RHEUMATOLOGICAL Hx Musculoskeletal Disorders: No Hx Falls: No - GASTROINTESTINAL Hx Gastrointestinal Disorders: No - GENITOURINARY/GYNECOLOGICAL Hx Genitourinary Disorders: No - PSYCHIATRIC Hx Substance Use: No - SURGICAL HISTORY Hx Cholecystectomy: Yes Hx Coronary Artery Bypass Graft: Yes - ANESTHESIA Hx Anesthesia: Yes Hx Anesthesia Reactions: No Hx Malignant Hyperthermia: No Has any member of the family had a problem w/ anesthesia?: No Meds Allergies/Adverse Reactions: Allergies Allergy/AdvReac Type Severity Reaction Status Date / Time codeine Allergy Verified 04/22/18 14:29 - Medications Medications: Current Medications Aspirin (Ecotrin) 81 mg PO DAILY [facility] Clopidogrel Bisulfate (Plavix) 75 mg PO DAILY [facility] Furosemide (Lasix) 20 mg PO DAILY [facility] Heparin Sodium (Porcine) (Heparin) 5,000 units SC Q8 [facility] Hydralazine HCl (Apresoline) 50 mg PO Q8 [facility] Insulin Aspart (Novolog) 0 unit SC ACHS [facility] PRN Reason: Protocol Insulin Glargine (Lantus) 10 unit SC HS [facility] Metoprolol Tartrate (Lopressor) 25 mg PO BID [facility] Pantoprazole Sodium (Protonix Ec Tab) 40 mg PO DAILY [facility] Rosuvastatin Calcium (Crestor) 10 mg PO HS [facility] Zolpidem Tartrate (Ambien) 5 mg PO HS PRN PRN Reason: Insomnia Results - Vital Signs Recent Vital Signs: Last Vital Signs Temp 97.4 F L 04/22/18 17:45 Pulse 58 L 04/22/18 17:45 Resp 18 04/22/18 17:45 BP 157/81 H 04/22/18 17:45 Pulse Ox 98 04/22/18 17:55 - Labs Result Diagrams: 04/22/18 15:04 04/22/18 15:53 Labs: Laboratory Results - last 24 hr 04/22/18 04/22/18 04/22/18 15:04 15:04 15:42 WBC 11.6 H RBC 3.90 Hgb 11.2 Hct 32.7 L MCV 83.9 MCH 28.7 MCHC 34.2 RDW 15.0 H Plt Count 309 MPV 9.2 Neut % (Auto) 59.7 Lymph % (Auto) 27.0 [place] % (Auto) 9.5 Eos % (Auto) 2.8 Baso % (Auto) 1.0 Neut # (Auto) 6.9 Lymph # (Auto) 3.1 [place] # (Auto) 1.1 H Eos # (Auto) 0.3 Baso # (Auto) 0.1 PT 12.3 H INR 1.1 APTT 31 Sodium Potassium Chloride Carbon Dioxide Anion Gap BUN Creatinine Est GFR ( Amer) Est GFR (Non-Af Amer) Random Glucose Calcium Total Bilirubin AST ALT Alkaline Phosphatase Troponin I NT-Pro-B Natriuret Pep Total Protein Albumin Globulin Albumin/Globulin Ratio Urine Color Straw Urine Clarity Clear Urine pH 5.0 Ur Specific [place] 1.005 Urine Protein Negative Urine Glucose (UA) Normal Urine Ketones Negative Urine Blood Negative Urine Nitrate Negative Urine Bilirubin Negative Urine Urobilinogen Normal Ur Leukocyte Esterase Neg Urine WBC (Auto) 1 Urine RBC (Auto) < 1 Ur Squamous Epith Cells < 1 Urine Bacteria Occ H Hyaline Casts 3-5 H 04/22/18 15:53 WBC RBC Hgb Hct MCV MCH MCHC RDW Plt Count MPV Neut % (Auto) Lymph % (Auto) [place] % (Auto) Eos % (Auto) Baso % (Auto) Neut # (Auto) Lymph # (Auto) [place] # (Auto) Eos # (Auto) Baso # (Auto) PT INR APTT Sodium 139 Potassium 5.5 H Chloride 101 Carbon Dioxide 27 Anion Gap 17 BUN 45 H Creatinine 2.1 H Est GFR ( Amer) 28 Est GFR (Non-Af Amer) 23 Random Glucose 164 H Calcium 8.9 Total Bilirubin 0.6 AST 25 ALT 15 Alkaline Phosphatase 75 Troponin I 0.0510 NT-Pro-B Natriuret Pep 2940 H Total Protein 7.9 Albumin 4.0 Globulin 3.8 Albumin/Globulin Ratio 1.1 Urine Color Urine Clarity Urine pH Ur Specific [place] Urine Protein Urine Glucose (UA) Urine Ketones Urine Blood Urine Nitrate Urine Bilirubin Urine Urobilinogen Ur Leukocyte Esterase Urine WBC (Auto) Urine RBC (Auto) Ur Squamous Epith Cells Urine Bacteria Hyaline Casts
[2018-04-22] MEDS: (Novolog) Insulin Aspart, Recombinant 100 u/ml 10 ml vial SC SCH (21:10)
[2018-04-22] MEDS: (Lantus) Insulin Glargine, Recombinant SC SCH (21:11)
[2018-04-22] MEDS ORDERED: Sod Polystyrene Sulf 15 gm/60 ml Susp PO ONE (22:00)
--- NOTE | 2018-04-22 23:52 | CP.PCM.HP ---
Present on Admission - Present on Admission Any Indicators Present on Admission: No Past Patient History - Past Medical History & Family History Past Medical History?: Yes - Past Social History Smoking Status: Former Smoker - CARDIAC Hx Congestive Heart Failure: Yes Hx Hypertension: Yes - PULMONARY Hx Respiratory Disorders: No - NEUROLOGICAL Hx Neurological Disorder: No - HEENT Hx HEENT Problems: No - RENAL Hx Chronic Kidney Disease: No - ENDOCRINE/METABOLIC Hx Endocrine Disorders: Yes Hx Diabetes Mellitus Type 2: Yes - HEMATOLOGICAL/ONCOLOGICAL Hx Blood Disorders: No - INTEGUMENTARY Hx Dermatological Problems: No - MUSCULOSKELETAL/RHEUMATOLOGICAL Hx Musculoskeletal Disorders: No Hx Falls: No - GASTROINTESTINAL Hx Gastrointestinal Disorders: No - GENITOURINARY/GYNECOLOGICAL Hx Genitourinary Disorders: No - PSYCHIATRIC Hx Substance Use: No - SURGICAL HISTORY Hx Cholecystectomy: Yes Hx Coronary Artery Bypass Graft: Yes - ANESTHESIA Hx Anesthesia: Yes Hx Anesthesia Reactions: No Hx Malignant Hyperthermia: No Has any member of the family had a problem w/ anesthesia?: No Meds Allergies/Adverse Reactions: Allergies Allergy/AdvReac Type Severity Reaction Status Date / Time codeine Allergy Verified 04/22/18 14:29 Results - Vital Signs Recent Vital Signs: Last Vital Signs Temp 97.4 F L 04/22/18 17:45 Pulse 58 L 04/22/18 17:45 Resp 18 04/22/18 17:45 BP 157/81 H 04/22/18 17:45 Pulse Ox 98 04/22/18 17:55 - Labs Result Diagrams: 04/25/18 03:01 04/25/18 03:01 Labs: Laboratory Results - last 24 hr 04/22/18 04/22/18 04/22/18 15:04 15:04 15:42 WBC 11.6 H RBC 3.90 Hgb 11.2 Hct 32.7 L MCV 83.9 MCH 28.7 MCHC 34.2 RDW 15.0 H Plt Count 309 MPV 9.2 Neut % (Auto) 59.7 Lymph % (Auto) 27.0 [place] % (Auto) 9.5 Eos % (Auto) 2.8 Baso % (Auto) 1.0 Neut # (Auto) 6.9 Lymph # (Auto) 3.1 [place] # (Auto) 1.1 H Eos # (Auto) 0.3 Baso # (Auto) 0.1 PT 12.3 H INR 1.1 APTT 31 Sodium Potassium Chloride Carbon Dioxide Anion Gap BUN Creatinine Est GFR ( Amer) Est GFR (Non-Af Amer) POC Glucose (mg/dL) Random Glucose Calcium Total Bilirubin AST ALT Alkaline Phosphatase Troponin I NT-Pro-B Natriuret Pep Total Protein Albumin Globulin Albumin/Globulin Ratio Urine Color Straw Urine Clarity Clear Urine pH 5.0 Ur Specific [place] 1.005 Urine Protein Negative Urine Glucose (UA) Normal Urine Ketones Negative Urine Blood Negative Urine Nitrate Negative Urine Bilirubin Negative Urine Urobilinogen Normal Ur Leukocyte Esterase Neg Urine WBC (Auto) 1 Urine RBC (Auto) < 1 Ur Squamous Epith Cells < 1 Urine Bacteria Occ H Hyaline Casts 3-5 H 04/22/18 04/22/18 15:53 21:05 WBC RBC Hgb Hct MCV MCH MCHC RDW Plt Count MPV Neut % (Auto) Lymph % (Auto) [place] % (Auto) Eos % (Auto) Baso % (Auto) Neut # (Auto) Lymph # (Auto) [place] # (Auto) Eos # (Auto) Baso # (Auto) PT INR APTT Sodium 139 Potassium 5.5 H Chloride 101 Carbon Dioxide 27 Anion Gap 17 BUN 45 H Creatinine 2.1 H Est GFR ( Amer) 28 Est GFR (Non-Af Amer) 23 POC Glucose (mg/dL) 169 H Random Glucose 164 H Calcium 8.9 Total Bilirubin 0.6 AST 25 ALT 15 Alkaline Phosphatase 75 Troponin I 0.0510 NT-Pro-B Natriuret Pep 2940 H Total Protein 7.9 Albumin 4.0 Globulin 3.8 Albumin/Globulin Ratio 1.1 Urine Color Urine Clarity Urine pH Ur Specific [place] Urine Protein Urine Glucose (UA) Urine Ketones Urine Blood Urine Nitrate Urine Bilirubin Urine Urobilinogen Ur Leukocyte Esterase Urine WBC (Auto) Urine RBC (Auto) Ur Squamous Epith Cells Urine Bacteria Hyaline Casts
[2018-04-23 06:47] LABS: CALCIUM 8.8 mg/dl (8.6-10.4)
[2018-04-23] MEDS: (Novolog) Insulin Aspart, Recombinant 100 u/ml 10 ml vial SC SCH ×2 (07:53→15:38)
--- NOTE | 2018-04-23 09:49 | CP.PCM.CON ---
History of Present Illness - History of Present Illness History of Present Illness: pt is seen and examined, full consult is dictated #[id number] Past Patient History - Past Medical History & Family History Past Medical History?: Yes - Past Social History Smoking Status: Former Smoker - CARDIAC Hx Congestive Heart Failure: Yes Hx Hypertension: Yes - PULMONARY Hx Respiratory Disorders: No - NEUROLOGICAL Hx Neurological Disorder: No - HEENT Hx HEENT Problems: No - RENAL Hx Chronic Kidney Disease: No - ENDOCRINE/METABOLIC Hx Endocrine Disorders: Yes Hx Diabetes Mellitus Type 2: Yes - HEMATOLOGICAL/ONCOLOGICAL Hx Blood Disorders: No - INTEGUMENTARY Hx Dermatological Problems: No - MUSCULOSKELETAL/RHEUMATOLOGICAL Hx Musculoskeletal Disorders: No Hx Falls: No - GASTROINTESTINAL Hx Gastrointestinal Disorders: No - GENITOURINARY/GYNECOLOGICAL Hx Genitourinary Disorders: No - PSYCHIATRIC Hx Substance Use: No - SURGICAL HISTORY Hx Cholecystectomy: Yes Hx Coronary Artery Bypass Graft: Yes - ANESTHESIA Hx Anesthesia: Yes Hx Anesthesia Reactions: No Hx Malignant Hyperthermia: No Has any member of the family had a problem w/ anesthesia?: No Meds Allergies/Adverse Reactions: Allergies Allergy/AdvReac Type Severity Reaction Status Date / Time codeine Allergy Verified 04/22/18 14:29 - Medications Medications: Current Medications Aspirin (Ecotrin) 81 mg PO DAILY [facility] Clopidogrel Bisulfate (Plavix) 75 mg PO DAILY [facility] Furosemide (Lasix) 20 mg PO DAILY [facility] Heparin Sodium (Porcine) (Heparin) 5,000 units SC Q8 [facility] Last Admin: 04/23/18 06:17 Dose: Not Given Hydralazine HCl (Apresoline) 50 mg PO Q8 [facility] Last Admin: 04/23/18 06:15 Dose: 50 mg Insulin Aspart (Novolog) 0 unit SC ACHS [facility] PRN Reason: Protocol Last Admin: 04/23/18 07:53 Dose: Not Given Insulin Glargine (Lantus) 10 unit SC HS [facility] Last Admin: 04/22/18 21:11 Dose: Not Given Metoprolol Tartrate (Lopressor) 25 mg PO BID [facility] Pantoprazole Sodium (Protonix Ec Tab) 40 mg PO DAILY [facility] Rosuvastatin Calcium (Crestor) 10 mg PO HS [facility] Last Admin: 04/22/18 21:56 Dose: 10 mg Zolpidem Tartrate (Ambien) 5 mg PO HS PRN PRN Reason: Insomnia Last Admin: 08/20/18 21:57 Dose: 5 mg Results - Vital Signs Recent Vital Signs: Last Vital Signs Temp 97.7 F 04/23/18 07:35 Pulse 66 04/23/18 07:35 Resp 20 04/23/18 07:35 BP 142/66 04/23/18 07:35 Pulse Ox 98 04/23/18 07:35 - Labs Result Diagrams: 04/23/18 21:11 04/23/18 21:11 Labs: Laboratory Results - last 24 hr 04/22/18 04/22/18 04/22/18 15:04 15:04 15:42 WBC 11.6 H RBC 3.90 Hgb 11.2 Hct 32.7 L MCV 83.9 MCH 28.7 MCHC 34.2 RDW 15.0 H Plt Count 309 MPV 9.2 Neut % (Auto) 59.7 Lymph % (Auto) 27.0 [place] % (Auto) 9.5 Eos % (Auto) 2.8 Baso % (Auto) 1.0 Neut # (Auto) 6.9 Lymph # (Auto) 3.1 [place] # (Auto) 1.1 H Eos # (Auto) 0.3 Baso # (Auto) 0.1 PT 12.3 H INR 1.1 APTT 31 Sodium Potassium Chloride Carbon Dioxide Anion Gap BUN Creatinine Est GFR ( Amer) Est GFR (Non-Af Amer) POC Glucose (mg/dL) Random Glucose Calcium Total Bilirubin AST ALT Alkaline Phosphatase Troponin I NT-Pro-B Natriuret Pep Total Protein Albumin Globulin Albumin/Globulin Ratio Urine Color Straw Urine Clarity Clear Urine pH 5.0 Ur Specific [place] 1.005 Urine Protein Negative Urine Glucose (UA) Normal Urine Ketones Negative Urine Blood Negative Urine Nitrate Negative Urine Bilirubin Negative Urine Urobilinogen Normal Ur Leukocyte Esterase Neg Urine WBC (Auto) 1 Urine RBC (Auto) < 1 Ur Squamous Epith Cells < 1 Urine Bacteria Occ H Hyaline Casts 3-5 H 04/22/18 04/22/18 04/23/18 15:53 21:05 06:00 WBC RBC Hgb Hct MCV MCH MCHC RDW Plt Count MPV Neut % (Auto) Lymph % (Auto) [place] % (Auto) Eos % (Auto) Baso % (Auto) Neut # (Auto) Lymph # (Auto) [place] # (Auto) Eos # (Auto) Baso # (Auto) PT INR APTT Sodium 139 141 Potassium 5.5 H 3.7 Chloride 101 100 Carbon Dioxide 27 29 Anion Gap 17 16 BUN 45 H 47 H Creatinine 2.1 H 2.4 H Est GFR ( Amer) 28 24 Est GFR (Non-Af Amer) 23 20 POC Glucose (mg/dL) 169 H Random Glucose 164 H 188 H Calcium 8.9 8.8 Total Bilirubin 0.6 AST 25 ALT 15 Alkaline Phosphatase 75 Troponin I 0.0510 NT-Pro-B Natriuret Pep 2940 H Total Protein 7.9 Albumin 4.0 Globulin 3.8 Albumin/Globulin Ratio 1.1 Urine Color Urine Clarity Urine pH Ur Specific [place] Urine Protein Urine Glucose (UA) Urine Ketones Urine Blood Urine Nitrate Urine Bilirubin Urine Urobilinogen Ur Leukocyte Esterase Urine WBC (Auto) Urine RBC (Auto) Ur Squamous Epith Cells Urine Bacteria Hyaline Casts 04/23/18 06:41 WBC RBC Hgb Hct MCV MCH MCHC RDW Plt Count MPV Neut % (Auto) Lymph % (Auto) [place] % (Auto) Eos % (Auto) Baso % (Auto) Neut # (Auto) Lymph # (Auto) [place] # (Auto) Eos # (Auto) Baso # (Auto) PT INR APTT Sodium Potassium Chloride Carbon Dioxide Anion Gap BUN Creatinine Est GFR ( Amer) Est GFR (Non-Af Amer) POC Glucose (mg/dL) 172 H Random Glucose Calcium Total Bilirubin AST ALT Alkaline Phosphatase Troponin I NT-Pro-B Natriuret Pep Total Protein Albumin Globulin Albumin/Globulin Ratio Urine Color Urine Clarity Urine pH Ur Specific [place] Urine Protein Urine Glucose (UA) Urine Ketones Urine Blood Urine Nitrate Urine Bilirubin Urine Urobilinogen Ur Leukocyte Esterase Urine WBC (Auto) Urine RBC (Auto) Ur Squamous Epith Cells Urine Bacteria Hyaline Casts
[2018-04-23] MEDS ORDERED: Lidocaine 2% MPF (5 ml) Inj ONE ×2 (10:00→17:24)
[2018-04-23] MEDS: Pantoprazole 40 mg EC Tab PO SCH (10:33)
[2018-04-23] MEDS ORDERED: Acetylcysteine 20% Inhal Soln (4ml) PO STA (10:40)
[2018-04-23] MEDS ORDERED: Sodium Chloride 0.45% 1,000 ML IV SCH (10:45)
--- NOTE | 2018-04-23 11:23 | HP ---
Copied To: Dillan Menendez MD Attending MD: Dillan Menendez MD CHIEF COMPLAINT: Chest pain. HISTORY OF PRESENT ILLNESS: This is a 77-year-old female, well known to me with history of coronary artery disease, status post CABG 15 years ago, hypertension, hyperlipidemia, CKD, peripheral vascular disease, status post angioplasty in the right lower extremity, who is compliant with diet, medication, and followup and the patient recently was in [facility] where she was admitted with congestive heart failure. Her congestive heart failure myocardial infarction, non-ST elevation with high troponin and the patient at that time could not have a cardiac catheterization done because of her renal function, so she was discharged. Today, she was seen by Dr. Brewer and the patient is for cardiac cath. She was admitted. The patient now feels better. She denies any chest pain. No nausea or vomiting. She denies any history of polyuria, polydipsia, or polyphagia. She denies any history of hematuria or pyuria. She had nasal congestion. She denies any chest pain. She denies any history of abdominal pain, nausea, vomiting, or diarrhea. She denies any constipation. She has tingling, numbness, and paresthesia in the feet and she feels like her right toenails are cracking down. She denies any history of headache, neck pain, or back pain. She denies any abdominal pain or flank pain. She denies any . PAST MEDICAL HISTORY: Pulmonary artery disease, status post CABG, diabetes, hypertension, hyperlipidemia, CKD. SOCIAL HISTORY: Nonsmoker, non-EtOH user. CURRENT MEDICATIONS: Hydralazine, Crestor, Prilosec, Lopressor, Cozaar, Lantus, Lasix, Plavix, aspirin. PHYSICAL EXAMINATION: GENERAL: An elderly female, in no distress. VITAL SIGNS: Blood pressure 157/81, pulse 58, respiratory rate 18, temperature 97.4. SKIN: Senile turgor. No bruises. No purpura. No petechiae. HEENT: Atraumatic, normocephalic. Negative pallor. No acute jaundice. Extraocular movements are intact. NECK: Supple. No JVD. No lymph nodes. No thyromegaly. No carotid bruits. CHEST: Chest wall bilaterally symmetrical expansion. No masses. No edema. CARDIOVASCULAR: PMI not localized. S1, S2 regular. There is 2/6 ejection systolic murmur at the right second intercostal space. ABDOMEN: Soft and nontender. Bowel sounds are positive. RECTAL: No masses. No bleeding. EXTREMITIES: No clubbing, cyanosis, or edema. CENTRAL NERVOUS SYSTEM: The patient is awake, alert, and oriented x3. Cranial nerves II through XII are normal. Power 5/5 x4. Plantars are downgoing. VASCULAR: The patient has excellent dorsalis pedis and posterior tibial artery in the right foot. ASSESSMENT: 1. Coronary artery disease, pending cardiac catheterization. 2. Chronic kidney disease, on medical management. 3. Hypertension. 4. Type 2 diabetes. 5. Peripheral arterial disease. PLAN: Admit. Detailed orders written. Seen and examined. Dillan Menendez MD
--- NOTE | 2018-04-23 13:10 | CP.PCM.PN ---
Subjective - Date & Time of Evaluation Date of Evaluation: 04/23/18 Time of Evaluation: 13:09 - Subjective Subjective: severe pvd right worse than left -ischemic rest pain non invasive testing pending will need dye and cta likely to need dialysis Objective - Vital Signs/Intake and Output Vital Signs (last 24 hours): Temp Pulse Resp BP Pulse Ox 97.7 F 67 20 142/66 98 04/23/18 07:35 04/23/18 08:08 04/23/18 07:35 04/23/18 07:35 04/23/18 07:35 - Medications Medications: Current Medications Aspirin (Ecotrin) 81 mg PO DAILY [facility] Last Admin: 04/23/18 10:32 Dose: Not Given Clopidogrel Bisulfate (Plavix) 75 mg PO DAILY [facility] Last Admin: 04/23/18 10:33 Dose: Not Given Furosemide (Lasix) 20 mg PO DAILY [facility] Last Admin: 04/23/18 10:33 Dose: Not Given Heparin Sodium (Porcine) (Heparin) 5,000 units SC Q8 [facility] Last Admin: 04/23/18 06:17 Dose: Not Given Hydralazine HCl (Apresoline) 50 mg PO Q8 [facility] Last Admin: 04/23/18 06:15 Dose: 50 mg Sodium Chloride (Sodium Chloride 0.45%) 1,000 mls @ 70 mls/hr IV .[id number] [facility] Stop: 04/24/18 10:46 Insulin Aspart (Novolog) 0 unit SC ACHS [facility] PRN Reason: Protocol Last Admin: 04/23/18 07:53 Dose: Not Given Insulin Glargine (Lantus) 10 unit SC [facility] Last Admin: 04/22/18 21:11 Dose: Not Given Metoprolol Tartrate (Lopressor) 25 mg PO BID [facility] Pantoprazole Sodium (Protonix Ec Tab) 40 mg PO DAILY [facility] Last Admin: 04/23/18 10:33 Dose: Not Given Pneumococcal Polyvalent Vaccine (Pneumovax 23 Vaccine) 0.5 ml IM .ONCE ONE Stop: 04/24/18 10:01 Rosuvastatin Calcium (Crestor) 10 mg PO HS [facility] Last Admin: 04/22/18 21:56 Dose: 10 mg Zolpidem Tartrate (Ambien) 5 mg PO HS PRN PRN Reason: Insomnia Last Admin: 04/22/18 21:57 Dose: 5 mg - Labs Labs: 04/22/18 15:04 04/23/18 06:00 PT 12.3 SECONDS (9.7-12.2) H 04/22/18 15:04 INR 1.1 04/22/18 15:04 APTT 31 SECONDS (21-34) 04/22/18 15:04
[2018-04-23] MEDS ORDERED: Iodixanol 320 MG/ML 200 ML BOTTLE IV ONE ×2 (16:59→18:04)
[2018-04-23] MEDS ORDERED: Verapamil 0 ML ONE (17:00)
[2018-04-23] MEDS ORDERED: Midazolam 2 MG/2 ML VIAL ONE (17:02)
--- NOTE | 2018-04-23 17:32 | CARD ---
APPROVED REPORT Date of service: 04/22/2018 EKG Measurement Heart [id number] <Conclusion> Sinus bradycardia with sinus arrhythmia ST & T wave abnormality, consider lateral ischemia Abnormal ECG
[2018-04-23] MEDS ORDERED: Iodixanol 320 MG/ML 100 ML BOTTLE IV ONE (18:04)
--- NOTE | 2018-04-23 18:29 | CP.PCM.PN ---
Subjective - Date & Time of Evaluation Date of Evaluation: 04/23/18 Time of Evaluation: 18:18 - Subjective Subjective: Patient s/p LHC/Coronary angiogram/Graft angiogram/Abdominal aortogram 1. L Main: patent 2. LAD: Mid 90-95% (STAHL to LAD patent) 3. L Cx: 100%, SVG to OM Likely occluded 4. RCA: Proximal 100% (SVG to RCA patent) 5. LVEDP: 20, Mild gradient across Aortic valve 6, Abdominal Aortogram: Severe b/l Iliiac disease, Right CI 95% ostial stenosis Recommendations: Patient has adequate coronary flow for her lifestyle. No coronary intervention needed Critical limb ischemia. Potential for limb loss without intervention. Vascular on case Objective - Vital Signs/Intake and Output Vital Signs (last 24 hours): Temp Pulse Resp BP Pulse Ox 97.7 F 67 20 142/66 98 04/23/18 07:35 04/23/18 08:08 04/23/18 07:35 04/23/18 07:35 04/23/18 07:35 - Medications Medications: Current Medications Aspirin (Ecotrin) 81 mg PO DAILY [facility] Last Admin: 04/23/18 10:32 Dose: Not Given Clopidogrel Bisulfate (Plavix) 75 mg PO DAILY [facility] Last Admin: 04/23/18 10:33 Dose: Not Given Furosemide (Lasix) 20 mg PO DAILY [facility] Last Admin: 04/23/18 10:33 Dose: Not Given Heparin Sodium (Porcine) (Heparin) 5,000 units SC Q8 [facility] Last Admin: 04/23/18 15:37 Dose: Not Given Hydralazine HCl (Apresoline) 50 mg PO Q8 [facility] Last Admin: 04/23/18 15:37 Dose: Not Given Sodium Chloride (Sodium Chloride 0.45%) 1,000 mls @ 70 mls/hr IV .[id number] [facility] Stop: 04/24/18 10:46 Insulin Aspart (Novolog) 0 unit SC ACHS [facility] PRN Reason: Protocol Last Admin: 04/23/18 15:38 Dose: Not Given Insulin Glargine (Lantus) 10 unit SC HS [facility] Last Admin: 04/22/18 21:11 Dose: Not Given Metoprolol Tartrate (Lopressor) 25 mg PO BID [facility] Pantoprazole Sodium (Protonix Ec Tab) 40 mg PO DAILY [facility] Last Admin: 04/23/18 10:33 Dose: Not Given Pneumococcal Polyvalent Vaccine (Pneumovax 23 Vaccine) 0.5 ml IM .ONCE ONE Stop: 04/24/18 10:01 Rosuvastatin Calcium (Crestor) 10 mg PO HS [facility] Last Admin: 04/22/18 21:56 Dose: 10 mg Zolpidem Tartrate (Ambien) 5 mg PO HS PRN PRN Reason: Insomnia Last Admin: 04/22/18 21:57 Dose: 5 mg - Labs Labs: 04/22/18 15:04 04/23/18 06:00 PT 12.3 SECONDS (9.7-12.2) H 04/22/18 15:04 INR 1.1 04/22/18 15:04 APTT 31 SECONDS (21-34) 04/22/18 15:04
[2018-04-23] MEDS ORDERED: DOPamine 400mg/250ml D5W 400 MG/250 ML BAG IV ONE (19:03)
[2018-04-23] MEDS ORDERED: Phenylephrine 10 mg/ml Inj ONE ×2 (19:08→19:59)
[2018-04-23] MEDS ORDERED: DiphenhydrAMINE 50 mg/ml Inj IVP STA (19:09)
[2018-04-23] MEDS ORDERED: DiphenhydrAMINE 50 mg/ml Inj ONE (19:10)
[2018-04-23] MEDS ORDERED: DOPamine 400mg/250ml D5W 400 MG/250 ML BAG IV PRN (19:17)
[2018-04-23] MEDS ORDERED: ceFAZolin IV 2 gm in Dextrose 2 GM/50 ML BAG IVPB ONE (20:40)
[2018-04-23] MEDS ORDERED: ceFAZolin IV 2 gm in Dextrose 2 GM/50 ML BAG IVPB SCH (20:43)
[2018-04-23] MEDS ORDERED: Vancomycin 1 gm/NS 200 ml 1 GM/200 ML BAG IVPB STA (20:44)
[2018-04-23 21:15] LABS: BASO % 0.2 % (0.0-2.0); EOS # 0.1 K/uL (0.0-0.7); EOS % 0.6 % (0.0-4.0); HEMOGLOBIN 10.1 g/dL (11.0-16.0); MEAN CELL VOLUME 85.3 fL (81.0-99.0); MEAN CORPUSCULAR HEMOGLOBIN 27.7 pg (27.0-31.0); MEAN CORPUSCULAR HGB CONC 32.4 g/dL (33.0-37.0); MEAN PLATELET VOLUME 9.4 fL (7.2-11.7); MONO # 0.9 K/uL (0.0-0.8); MONO % 3.8 % (0.0-10.0); NEUT # 18.4 K/uL (1.8-7.0); NEUT % 78.4 % (50.0-75.0); RBC 3.64 Mil/uL (3.80-5.20); RED CELL DISTRIBUTION WIDTH 14.9 % (11.5-14.5)
[2018-04-23 21:17] LABS: WHITE BLOOD COUNT 23.4 K/uL (4.8-10.8)
[2018-04-23 21:36] LABS: ALB/GLOB RATIO 0.9 (1.0-2.1); ALBUMIN 3.7 g/dL (3.5-5.0); CALCIUM 8.5 mg/dl (8.6-10.4)
[2018-04-23 21:43] LABS: CK-MB 0.95 ng/mL (0.0-3.38); TROPONIN I 0.054 ng/mL (0.00-0.120)
--- NOTE | 2018-04-23 22:17 | CP.PCM.PN ---
Objective - Vital Signs/Intake and Output Vital Signs (last 24 hours): Temp Pulse Resp BP Pulse Ox 97.7 F 67 20 142/66 98 04/23/18 07:35 04/23/18 08:08 04/23/18 07:35 04/23/18 07:35 04/23/18 07:35 - Medications Medications: Current Medications Aspirin (Ecotrin) [address] [facility] Last Admin: 04/23/18 10:32 Dose: Not Given Clopidogrel Bisulfate (Plavix) [address] [facility] Last Admin: 04/23/18 10:33 Dose: Not Given Furosemide (Lasix) [address] [facility] Last Admin: 04/23/18 10:33 Dose: Not Given Hydralazine HCl (Apresoline) [address] [facility] Last Admin: 04/23/18 15:37 Dose: Not Given Sodium Chloride (Sodium Chloride 0.45%) 1,000 mls @ 70 mls/hr IV .[id number] [facility] Stop: 04/24/18 10:46 Heparin Sodium/Sodium Chloride (Heparin 98007 Units/250ml 1/2 Normal Saline) 25 ,000 units in 250 mls @ 5.987 mls/hr IV .Q24H PRN; Protocol; 12 UNITS/KG/HR PRN Reason: PROTOCOL Cefazolin Sodium 2 gm/ Sodium (Chloride) 100 mls @ 100 mls/hr IVPB ONCE ONE PRN Reason: Protocol Stop: 04/23/18 23:59 Dopamine HCl/Dextrose (Dopamine 400mg/250ml D5w) 400 mg in 250 mls @ 18.711 mls /hr IV .[id number] PRN; Protocol; 10 MCG/KG/MIN PRN Reason: Systolic Blood Pressure Norepinephrine Bitartrate 4 mg (/ Sodium Chloride) 254 mls @ 15.24 mls/hr IV .[id number] PRN; Protocol; 4 MCG/MIN PRN Reason: TITRATE PER MD ORDER Insulin Aspart (Novolog) [address] [facility] PRN Reason: Protocol Last Admin: 04/23/18 15:38 Dose: Not Given Insulin Glargine (Lantus) [address] [facility] Last Admin: 04/22/18 21:11 Dose: Not Given Metoprolol Tartrate (Lopressor) [address] [facility] Pantoprazole Sodium (Protonix Ec Tab) 40 mg PO DAILY [facility] Last Admin: 04/23/18 10:33 Dose: Not Given Pneumococcal Polyvalent Vaccine (Pneumovax 23 Vaccine) 0.5 ml IM .ONCE ONE Stop: 04/24/18 10:01 Rosuvastatin Calcium (Crestor) [address] [facility] Last Admin: 04/23/18 22:15 Dose: Not Given Zolpidem Tartrate (Ambien) 5 mg PO HS PRN PRN Reason: Insomnia Last Admin: 04/22/18 21:57 Dose: 5 mg - Labs Labs: 04/23/18 21:11 04/23/18 21:11 PT 12.3 SECONDS (9.7-12.2) H 04/22/18 15:04 INR 1.1 04/22/18 15:04 APTT 31 SECONDS (21-34) 04/22/18 15:04
[2018-04-23] MEDS ORDERED: ceFAZolin 2 GM in Sodium Chloride 0.9% 100 ML IVPB ONE (23:00)
[2018-04-23] MEDS ORDERED: Heparin25000 units/250ml 1/2NS 25,000 UNITS/250 ML BAG IV PRN (23:00)
[2018-04-23] MEDS: (Lantus) Insulin Glargine, Recombinant SC SCH (23:45)
--- NOTE | 2018-04-23 23:45 | CP.CCUPN ---
CCU Objective - Vital Signs / Intake & Output Vital Signs (Last 4 hours): Vital Signs BP 04/23/18 21:00 110/51 L Intake and Output (Last 8hrs): Intake & Output 04/23/18 04/23/18 04/24/18 14:59 22:59 06:59 Intake Total 10 Balance 10 Weight 187 lb 6.287 oz Intake: IV 10 - Medications Active Medications: Active Medications Generic Name Dose Route Start Last Admin Trade Name Freq PRN Reason Stop Dose Admin Aspirin 81 mg 04/23/18 10:00 04/23/18 10:32 Ecotrin PO Not Given DAILY [facility] Clopidogrel Bisulfate 75 mg 04/23/18 10:00 04/23/18 10:33 Plavix PO Not Given DAILY [facility] Furosemide 20 mg 04/23/18 10:00 04/23/18 10:33 Lasix PO Not Given DAILY [facility] Hydralazine HCl 50 mg 04/22/18 22:00 04/23/18 22:17 Apresoline PO Not Given Q8 [facility] Sodium Chloride 1,000 mls @ 70 mls/hr 04/23/18 10:45 Sodium Chloride 0.45% IV 04/24/18 10:46 .[id number] [facility] Heparin Sodium/Sodium Chloride 25,000 units in 250 mls @ 5.987 mls/hr 23:00 04/23/18 23:27 Heparin 47047 Units/250ml 1/2 Normal Saline IV 20.44 units/kg/hr .Q24H PRN 10.2 mls/hr PROTOCOL Administration Protocol 12 UNITS/KG/HR Cefazolin Sodium 2 gm/ Sodium 100 mls @ 100 mls/hr 04/23/18 23:00 04/23/18 23 :41 Chloride IVPB 04/23/18 23:59 Not Given ONCE ONE Protocol Dopamine HCl/Dextrose 400 mg in 250 mls @ 18.711 mls/hr 04/23/18 19:17 23:39 Dopamine 400mg/250ml D5w IV 2.4 mcg/kg/min .[id number] PRN 4.5 mls/hr Systolic Blood Pressure Titration Protocol 10 MCG/KG/MIN Norepinephrine Bitartrate 4 mg 254 mls @ 15.24 mls/hr 04/23/18 20:37 / Sodium Chloride IV .[id number] PRN TITRATE PER MD ORDER Protocol 4 MCG/MIN Potassium Chloride 20 meq in 100 mls @ 50 mls/hr 04/23/18 23:00 Potassium Chloride 20 Meq/100 Ml IVPB 04/24/18 02:59 Q2H [facility] Insulin Aspart 0 unit 04/24/18 00:00 Novolog SC Q6H [facility] Protocol Insulin Glargine 10 unit 04/22/18 22:00 04/22/18 21:11 Lantus SC Not Given HS [facility] Metoprolol Tartrate 25 mg 04/24/18 10:00 Lopressor PO BID [facility] Pantoprazole Sodium 40 mg 04/23/18 10:00 04/23/18 10:33 Protonix Ec Tab PO Not Given DAILY [facility] Pneumococcal Polyvalent Vaccine 0.5 ml 04/24/18 10:00 Pneumovax 23 Vaccine IM 04/24/18 10:01 .ONCE ONE Rosuvastatin Calcium 10 mg 04/22/18 22:00 04/23/18 22:15 Crestor PO Not Given HS [facility] Zolpidem Tartrate 5 mg 04/22/18 19:57 04/22/18 21:57 Ambien PO 5 mg HS PRN Administration Insomnia - Patient Studies Lab Studies: Lab Studies 04/23/18 04/23/18 04/23/18 Range/Units 21:11 21:11 21:11 WBC 23.4 H D (4.8-10.8) K/uL RBC 3.64 L (3.80-5.20) Mil/uL Hgb 10.1 L (11.0-16.0) g/dL Hct 31.1 L (34.0-47.0) % MCV 85.3 (81.0-99.0) fL MCH 27.7 (27.0-31.0) pg MCHC 32.4 L (33.0-37.0) g/dL RDW 14.9 H (11.5-14.5) % Plt Count 308 (130-400) K/uL MPV 9.4 (7.2-11.7) fL Neut % (Auto) 78.4 H (50.0-75.0) % Lymph % (Auto) 17.0 L (20.0-40.0) % Andrew % (Auto) 3.8 (0.0-10.0) % Eos % (Auto) 0.6 (0.0-4.0) % Baso % (Auto) 0.2 (0.0-2.0) % Neut # (Auto) 18.4 H (1.8-7.0) K/uL Lymph # (Auto) 4.0 (1.0-4.3) K/uL Andrew # (Auto) 0.9 H (0.0-0.8) K/uL Eos # (Auto) 0.1 (0.0-0.7) K/uL Baso # (Auto) 0.0 (0.0-0.2) K/uL Sodium 138 (132-148) mmol/L Potassium 3.5 L (3.6-5.2) mmol/L Chloride 100 (98-107) mmol/L Carbon Dioxide 20 L (22-30) mmol/L Anion Gap 22 H (10-20) BUN 40 H (7-17) mg/dL Creatinine 2.3 H (0.7-1.2) mg/dL Est GFR ( Amer) 25 Est GFR (Non-Af Amer) 21 POC Glucose (mg/dL) (65-110) mg/dL Random Glucose 271 H (65-105) mg/dL Calcium 8.5 L (8.6-10.4) mg/dl Phosphorus 4.1 (2.5-4.5) mg/dL Magnesium 1.8 (1.6-2.3) mg/dL Total Bilirubin 0.5 (0.2-1.3) mg/dL AST 18 (14-36) U/L ALT 13 (9-52) U/L Alkaline Phosphatase 90 (38-126) U/L Total Creatine Kinase 53 (30-135) U/L CK-MB (Mass) 0.95 (0.0-3.38) ng/mL Troponin I 0.0540 (0.00-0.120) ng/mL Total Protein 7.6 (6.3-8.3) g/dL Albumin 3.7 (3.5-5.0) g/dL Globulin 3.9 (2.2-3.9) gm/dL Albumin/Globulin Ratio 0.9 L (1.0-2.1) Procalcitonin < 0.05 L (0.19-0.49) NG/ML 04/23/18 04/23/18 04/23/18 Range/Units 19:24 15:21 11:21 WBC (4.8-10.8) K/uL RBC (3.80-5.20) Mil/uL Hgb (11.0-16.0) g/dL Hct (34.0-47.0) % MCV (81.0-99.0) fL MCH (27.0-31.0) pg MCHC (33.0-37.0) g/dL RDW (11.5-14.5) % Plt Count (130-400) K/uL MPV (7.2-11.7) fL Neut % (Auto) (50.0-75.0) % Lymph % (Auto) (20.0-40.0) % Andrew % (Auto) (0.0-10.0) % Eos % (Auto) (0.0-4.0) % Baso % (Auto) (0.0-2.0) % Neut # (Auto) (1.8-7.0) K/uL Lymph # (Auto) (1.0-4.3) K/uL Andrew # (Auto) (0.0-0.8) K/uL Eos # (Auto) (0.0-0.7) K/uL Baso # (Auto) (0.0-0.2) K/uL Sodium (132-148) mmol/L Potassium (3.6-5.2) mmol/L Chloride (98-107) mmol/L Carbon Dioxide (22-30) mmol/L Anion Gap (10-20) BUN (7-17) mg/dL Creatinine (0.7-1.2) mg/dL Est GFR ( Amer) Est GFR (Non-Af Amer) POC Glucose (mg/dL) 145 H 129 H 150 H (65-110) mg/dL Random Glucose (65-105) mg/dL Calcium (8.6-10.4) mg/dl Phosphorus (2.5-4.5) mg/dL Magnesium (1.6-2.3) mg/dL Total Bilirubin (0.2-1.3) mg/dL AST (14-36) U/L ALT (9-52) U/L Alkaline Phosphatase (38-126) U/L Total Creatine Kinase (30-135) U/L CK-MB (Mass) (0.0-3.38) ng/mL Troponin I (0.00-0.120) ng/mL Total Protein (6.3-8.3) g/dL Albumin (3.5-5.0) g/dL Globulin (2.2-3.9) gm/dL Albumin/Globulin Ratio (1.0-2.1) Procalcitonin (0.19-0.49) NG/ML 04/23/18 04/23/18 Range/Units 06:41 06:00 WBC (4.8-10.8) K/uL RBC (3.80-5.20) Mil/uL Hgb (11.0-16.0) g/dL Hct (34.0-47.0) % MCV (81.0-99.0) fL MCH (27.0-31.0) pg MCHC (33.0-37.0) g/dL RDW (11.5-14.5) % Plt Count (130-400) K/uL MPV (7.2-11.7) fL Neut % (Auto) (50.0-75.0) % Lymph % (Auto) (20.0-40.0) % Andrew % (Auto) (0.0-10.0) % Eos % (Auto) (0.0-4.0) % Baso % (Auto) (0.0-2.0) % Neut # (Auto) (1.8-7.0) K/uL Lymph # (Auto) (1.0-4.3) K/uL Andrew # (Auto) (0.0-0.8) K/uL Eos # (Auto) (0.0-0.7) K/uL Baso # (Auto) (0.0-0.2) K/uL Sodium 141 (132-148) mmol/L Potassium 3.7 (3.6-5.2) mmol/L Chloride 100 (98-107) mmol/L Carbon Dioxide 29 (22-30) mmol/L Anion Gap 16 (10-20) BUN 47 H (7-17) mg/dL Creatinine 2.4 H (0.7-1.2) mg/dL Est GFR ( Amer) 24 Est GFR (Non-Af Amer) 20 POC Glucose (mg/dL) 172 H (65-110) mg/dL Random Glucose 188 H (65-105) mg/dL Calcium 8.8 (8.6-10.4) mg/dl Phosphorus (2.5-4.5) mg/dL Magnesium (1.6-2.3) mg/dL Total Bilirubin (0.2-1.3) mg/dL AST (14-36) U/L ALT (9-52) U/L Alkaline Phosphatase (38-126) U/L Total Creatine Kinase (30-135) U/L CK-MB (Mass) (0.0-3.38) ng/mL Troponin I (0.00-0.120) ng/mL Total Protein (6.3-8.3) g/dL Albumin (3.5-5.0) g/dL Globulin (2.2-3.9) gm/dL Albumin/Globulin Ratio (1.0-2.1) Procalcitonin (0.19-0.49) NG/ML Laboratory Results - last 24 hr 04/23/18 04/23/18 04/23/18 06:00 06:41 11:21 WBC RBC Hgb Hct MCV MCH MCHC RDW Plt Count MPV Neut % (Auto) Lymph % (Auto) Andrew % (Auto) Eos % (Auto) Baso % (Auto) Neut # (Auto) Lymph # (Auto) Andrew # (Auto) Eos # (Auto) Baso # (Auto) Sodium 141 Potassium 3.7 Chloride 100 Carbon Dioxide 29 Anion Gap 16 BUN 47 H Creatinine 2.4 H Est GFR ( Amer) 24 Est GFR (Non-Af Amer) 20 POC Glucose (mg/dL) 172 H 150 H Random Glucose 188 H Calcium 8.8 Phosphorus Magnesium Total Bilirubin AST ALT Alkaline Phosphatase Total Creatine Kinase CK-MB (Mass) Troponin I Total Protein Albumin Globulin Albumin/Globulin Ratio Procalcitonin 04/23/18 04/23/18 04/23/18 15:21 19:24 21:11 WBC 23.4 H D RBC 3.64 L Hgb 10.1 L Hct 31.1 L MCV 85.3 MCH 27.7 MCHC 32.4 L RDW 14.9 H Plt Count 308 MPV 9.4 Neut % (Auto) 78.4 H Lymph % (Auto) 17.0 L Andrew % (Auto) 3.8 Eos % (Auto) 0.6 Baso % (Auto) 0.2 Neut # (Auto) 18.4 H Lymph # (Auto) 4.0 Andrew # (Auto) 0.9 H Eos # (Auto) 0.1 Baso # (Auto) 0.0 Sodium Potassium Chloride Carbon Dioxide Anion Gap BUN Creatinine Est GFR ( Amer) Est GFR (Non-Af Amer) POC Glucose (mg/dL) 129 H 145 H Random Glucose Calcium Phosphorus Magnesium Total Bilirubin AST ALT Alkaline Phosphatase Total Creatine Kinase CK-MB (Mass) Troponin I Total Protein Albumin Globulin Albumin/Globulin Ratio Procalcitonin 04/23/18 04/23/18 21:11 21:11 WBC RBC Hgb Hct MCV MCH MCHC RDW Plt Count MPV Neut % (Auto) Lymph % (Auto) Andrew % (Auto) Eos % (Auto) Baso % (Auto) Neut # (Auto) Lymph # (Auto) Andrew # (Auto) Eos # (Auto) Baso # (Auto) Sodium 138 Potassium 3.5 L Chloride 100 Carbon Dioxide 20 L Anion Gap 22 H BUN 40 H Creatinine 2.3 H Est GFR ( Amer) 25 Est GFR (Non-Af Amer) 21 POC Glucose (mg/dL) Random Glucose 271 H Calcium 8.5 L Phosphorus 4.1 Magnesium 1.8 Total Bilirubin 0.5 AST 18 ALT 13 Alkaline Phosphatase 90 Total Creatine Kinase 53 CK-MB (Mass) 0.95 Troponin I 0.0540 Total Protein 7.6 Albumin 3.7 Globulin 3.9 Albumin/Globulin Ratio 0.9 L Procalcitonin < 0.05 L Fingerstick Blood Sugar Results: 169 Critical Care Progress Note - Nutrition Nutrition: Nutrition Category Date Time Status NPO Diet [DIET] Diets 04/24/18 Breakfast Active
[2018-04-24] LABS: ARTERIAL BLOOD GAS HCO3 21.5 mmol/L (21-28); ARTERIAL BLOOD GAS O2 SAT 98.3 % (95-98); ARTERIAL BLOOD GAS PCO2 35 mm/Hg (35-45); ARTERIAL BLOOD GAS PH 7.37 (7.35-7.45); ARTERIAL BLOOD GAS PO2 83 mm/Hg (80-100); ARTERIAL BLOOD GAS TCO2 21.3 mmol/L (22-28)
[2018-04-24 01:15] LABS: SQUAMOUS EPITHIAL 1 /hpf (0-5); URINE BILIRUBIN NEGATIVE (NEGATIVE); URINE BLOOD NEGATIVE (NEGATIVE); URINE CLARITY Clear (Clear); URINE COLOR Yellow (YELLOW); URINE GLUCOSE (UA) NORMAL (Normal); URINE LEUKOCYTE ESTERASE NEG Leu/uL (Negative); URINE PROTEIN NEGATIVE (NEGATIVE); URINE UROBILINOGEN NORMAL mg/dL (0.2-1.0)
[2018-04-24] MEDS: (Novolog) Insulin Aspart, Recombinant 100 u/ml 10 ml vial SC SCH ×5 (02:29→22:48)
--- NOTE | 2018-04-24 05:24 | PN ---
Copied To: Dillan Menendez MD Attending MD: Dillan Menendez MD DATE: 04/23/2018 SUBJECTIVE: The patient is status post cardio cath. She is persistently nauseous. She had bilious green vomiting. Low LV ejection fraction of 30%. She has patent graft. Her WBC has gone up. She is more weak. The patient is she is transferred to ICU. Her blood sugars are fluctuating. PHYSICAL EXAMINATION: VITAL SIGNS: BP 142/66, pulse 66, respiratory rate 20, and temperature 99.7. LUNGS: Positive rales. Decreased air entry. CARDIOVASCULAR SYSTEM: S1 and S2 regular. ABDOMEN: Soft. ASSESSMENT: 1. Coronary artery disease, status post cardiac catheterization. 2. Severe peripheral vascular disease, status post abdominal aortic angiogram. 3. Type 2 diabetes. 4. Chronic kidney disease. 5. Hypertension. 6. Post-cardiac catheterization. The patient is in intensive care unit because of intractable nausea and vomiting. Blood pressure is high. White blood count is high. Etiology of nausea is unclear. Vomiting is unclear. PLAN: Monitor the patient. Continue antiemetics. IV fluids. Accu-Cheks. Sliding scale. The patient is on norepinephrine 4 mcg per minute. Dillan Menendez MD
--- NOTE | 2018-04-24 05:30 | PCM.RRT ---
<Mckayla Ramirez Rosana - Last Filed: 04/24/18 05:28> HEALTH SYSTEMS ANALYST Nurses Assessment - Situation Date: 04/23/18 Time HEALTH SYSTEMS ANALYST was called: 20:32 HEALTH SYSTEMS ANALYST Responder Arrival Time:: 20:34 HEALTH SYSTEMS ANALYST Location:: [facility] HE[facility] SYSTEMS ANALYST Reason for Call: Hypotension HEALTH SYSTEMS ANALYST Called By: RN - IV IV Inserted during HEALTH SYSTEMS ANALYST?: Yes New IV Insertion Tolerance: Good - Respiratory HEALTH SYSTEMS ANALYST Delivery Method: Nasal Cannula @L/min (2L) Received Nebulizer Treatments: No Was the Patient Ventilated with Bag/Mask 100% O2?: No Secretions Suctioned?: Yes Was the Patient Intubated?: No Was the Patient Placed on a Ventilator?: No - Medication Medications Administered During HEALTH SYSTEMS ANALYST: Levophed and Dopamine drips started - Diagnostic Test Ordered EKG: Yes Chest X-Ray: Yes CT Scan: No - Stat Labs Ordered HEALTH SYSTEMS ANALYST Stat Labs Ordered: CBC, TROPONIN, LACTIC ACID, ABG HEALTH SYSTEMS ANALYST Other Labs Ordered: CMP, procalcitonin, Mag, Phos CPR started during HEALTH SYSTEMS ANALYST?: No - Vital Signs Vital Signs: BP: 100/47, HR: 107, O2: 96% on NC - Len Coma Scale Coma Scale Eye Opening: Spontaneous Coma Scale Verbal: Confused/able to answer - Sepsis Screen Part 1 Sepsis Screen Part 1: Hypotensive - Time HEALTH SYSTEMS ANALYST Ended Time HEALTH SYSTEMS ANALYST Ended: 20:53 - Vital Signs at end of HEALTH SYSTEMS ANALYST Vital Signs at end of HEALTH SYSTEMS ANALYST: end of HEALTH SYSTEMS ANALYST: BP 100/68, HR 114, O2: 97% on NC - Recommendations 5) HEALTH SYSTEMS ANALYST Level of Care Recommendations: Transfer to ICU I.Reason for HEALTH SYSTEMS ANALYST - A) Acute Change in Patient: (Select all that apply): Staff member or family is worried about patient, Acute change in SBP below (100) - Neurological Status (Select all that apply): Responsive, Confused - Respiratory Oxygen Delivery Method: Nasal Cannula @L/min (2) - Constitutional Appears: Toxic, In Acute Distress, Older Than Stated Age, Confused - Head Head Exam: ATRAUMATIC, NORMAL INSPECTION, NORMOCEPHALIC - Eyes Eye Exam: EOMI, Normal appearance - Respiratory Exam Respiratory Exam: Clear to Ausculation Bilateral - Cardiovascular Exam Cardiovascular Exam: Tachycardia, +S1, +S2 - Neurological Exam Neurological Exam: Alert, Awake - Extremities Exam Extremities Exam: Normal Inspection. absent: Pedal Edema, Tenderness Plan - Assessment of Findings&Treatment Plan HEALTH SYSTEMS ANALYST called for hypotension. Patient was about 2 hours post cardiac cath during which EF found to be about 30%. Central line (triple lumen in femoral vein) placed by Dr. Brewer. Patient started on Levophed and Dopamine drip. Patient given Zofran 4mg, 1g Vanco, 2g Ancef. CBC, CMP, Mag, Phos, LAINE, Procalcitonin, ABG shock, blood cultures, Cxray, and EKG done. Patient transferred to ICU and NG tube placed. Heparin drip to be started at [address] Brewer with no bolus. <Ryan Baez M - Last Filed: 04/25/18 15:31> HEALTH SYSTEMS ANALYST Nurses Assessment - Vital Signs Vital Signs: Rapid Response Vital Sign Blood Pressure 81/48 Pulse Rate 110 Respiratory Rate 20 Temperature 98 F Oxygen Saturation 98 - Vital Signs at end of HEALTH SYSTEMS ANALYST Vital Signs at end of HEALTH SYSTEMS ANALYST: Rapid Response End Vital Sign Blood Pressure 100/68 Pulse Rate 114 Respiratory Rate 20 Temperature 97.8 F O2 Sat by Pulse Oximetry 97 Attending/Attestation - Attestation I have personally seen and examined this patient.: Yes I have fully participated in the care of the patient.: Yes I have reviewed all pertinent clinical information, including history, physical exam and plan: Yes Notes (Text): 04/24/18 The Patient was seen and examined at the bedside, Medical records reviewed, and management issues were discussed and formulated with the house staff. I have reviewed all the relevant clinical, laboratory, hemodynamic, radiographic data and medications Events reviewed Patient with PVD, ischemic rest pain, CAD, S/Pcardiac catheterization with stent placement, HEALTH SYSTEMS ANALYST called for hypotension, diaphoresis, getting admitted to the ICU for cardiogenci shock, stat central line TLC R femoral placed and started on Levophed Patient AAOx3 Stat labs sent, Serial Trop ECHO IV Hydrations Supplemental Oxygen, maintain SpO2 >95% Zofran PRN Pain issues, skin care, head of the bed elevation, glycemic control were addressed. Agree with above resident's assessment and treatment plans of care as transcribed in Dr. ramirez's note
[2018-04-24 06:25] LABS: HEMOGLOBIN 9.4 g/dL (11.0-16.0); MEAN CELL VOLUME 84.6 fL (81.0-99.0); MEAN CORPUSCULAR HEMOGLOBIN 28.1 pg (27.0-31.0); MEAN CORPUSCULAR HGB CONC 33.2 g/dL (33.0-37.0); MEAN PLATELET VOLUME 9.3 fL (7.2-11.7); RBC 3.33 Mil/uL (3.80-5.20); RED CELL DISTRIBUTION WIDTH 14.8 % (11.5-14.5)
[2018-04-24 06:31] LABS: INR 1.3; PROTHROMBIN TIME 13.7 SECONDS (9.7-12.2)
[2018-04-24 06:44] LABS: ALBUMIN 3.5 g/dL (3.5-5.0); CALCIUM 8.2 mg/dl (8.6-10.4)
--- NOTE | 2018-04-24 07:09 | CP.PCM.PN ---
Subjective - Date & Time of Evaluation Date of Evaluation: 04/23/18 Time of Evaluation: 21:10 - Subjective Subjective: Patient s/p cardiac Cath Hx of CABG x 2 Both the grafts patent EF by ECHO 30-35% prior Severe PAD with Critical limb ischemia Rt>left Patient became hypotensive post cath requiring pressors liklely due to sedation On pressors and will follow ICU management D/W family Objective - Vital Signs/Intake and Output Vital Signs (last 24 hours): Temp Pulse Resp BP Pulse Ox 97.7 F 67 20 110/51 L 98 04/23/18 07:35 04/23/18 08:08 04/23/18 07:35 04/23/18 21:00 04/23/18 07:35 Intake and Output: 04/24/18 04/24/18 06:59 18:59 Intake Total 10 Balance 10 - Medications Medications: Current Medications Aspirin (Ecotrin) [address] [facility] Last Admin: 04/23/18 10:32 Dose: Not Given Clopidogrel Bisulfate (Plavix) [address] [facility] Last Admin: 04/23/18 10:33 Dose: Not Given Furosemide (Lasix) [address] [facility] Last Admin: 04/23/18 10:33 Dose: Not Given Hydralazine HCl (Apresoline) [address] [facility] Last Admin: 04/24/18 06:37 Dose: Not Given Sodium Chloride (Sodium Chloride 0.45%) 1,000 mls @ 70 mls/hr IV .[id number] [facility] Stop: 04/24/18 10:46 Last Admin: 04/24/18 01:03 Dose: 70 mls/hr Heparin Sodium/Sodium Chloride (Heparin 63836 Units/250ml 1/2 Normal Saline) 25 ,000 units in 250 mls @ 5.987 mls/hr IV .Q24H PRN; Protocol; 12 UNITS/KG/HR PRN Reason: PROTOCOL Last Admin: 04/23/18 23:27 Dose: 20.44 units/kg/hr, 10.2 mls/hr Dopamine HCl/Dextrose (Dopamine 400mg/250ml D5w) 400 mg in 250 mls @ 18.711 mls /hr IV .[id number] PRN; Protocol; 10 MCG/KG/MIN PRN Reason: Systolic Blood Pressure Last Titration: 04/23/18 23:39 Dose: 2.4 mcg/kg/min, 4.5 mls/hr Norepinephrine Bitartrate 4 mg (/ Sodium Chloride) 254 mls @ 15.24 mls/hr IV .[id number] PRN; Protocol; 4 MCG/MIN PRN Reason: TITRATE PER MD ORDER Insulin Aspart (Novolog) 0 unit SC Q6H [facility] PRN Reason: Protocol Last Admin: 04/24/18 02:29 Dose: Not Given Insulin Glargine (Lantus) [address] [facility] Last Admin: 04/23/18 23:45 Dose: 10 units Metoprolol Tartrate (Lopressor) [address] [facility] Ondansetron HCl (Zofran Inj) 4 mg IVP Q4H PRN PRN Reason: Nausea/Vomiting Pantoprazole Sodium (Protonix Ec Tab) [address] [facility] Last Admin: 04/23/18 10:33 Dose: Not Given Pneumococcal Polyvalent Vaccine (Pneumovax 23 Vaccine) 0.5 ml IM .ONCE ONE Stop: 04/24/18 10:01 Rosuvastatin Calcium (Crestor) [address] [facility] Last Admin: 04/23/18 22:15 Dose: Not Given Zolpidem Tartrate (Ambien) 5 mg PO HS PRN PRN Reason: Insomnia Last Admin: 04/22/18 21:57 Dose: 5 mg - Labs Labs: 04/24/18 06:14 04/24/18 06:14 PT 13.7 SECONDS (9.7-12.2) H 04/24/18 06:14 INR 1.3 04/24/18 06:14 APTT 91 SECONDS (21-34) H D 04/24/18 06:14
--- NOTE | 2018-04-24 08:41 | CON ---
Copied To: Anthony Garrett MD Attending MD: Anthony Garrett MD DATE: 04/23/2018 RENAL CONSULTATION LOCATION: The patient is located in room 660, bed B. RENAL CONSULTATION REQUESTED BY: Dillan Menendez MD and Kenny Brewer MD. REASON FOR RENAL CONSULTATION: Chronic kidney disease stage 4 , CHF, and for further evaluation. HISTORY OF PRESENT ILLNESS: Mrs. Holland is about 77-year-old elderly female from [place] with a past medical history significant for longstanding hypertension for more than 15 years, diabetes, hyperlipidemia, coronary artery disease, gastritis, status post CABG in 2003, status post stent placement in 02/2016 who was recently admitted to [facility] on 03/28/2018 with chief complaints of shortness of breath and feeling weak and tired, and the patient was offered cardiac cath by Dr. More at that time, and the patient refused procedure due to the chronic kidney disease with moderate risk for contrast-induced nephropathy. The patient was discharged home subsequently and went to see the private branch exchange operator, and the patient was sent by Dr. Kenny Brewer for the cardiac catheterization. Now, the patient is complaining of dyspnea on exertion. Denies any chest pain at this time. Complains of pain in the legs and also discoloration of the feet. Denies any nausea, vomiting, diarrhea. Denies any urinary symptoms. Denies any headache or dizziness. PAST MEDICAL HISTORY: Significant for hypertension for more than 15 years, diabetes for more than 15, hyperlipidemia, chronic kidney disease with a baseline creatinine of about 2, coronary artery disease, status post stents. PAST SURGICAL HISTORY: Status post CABG in 2003, status post stents in 02/2016, two stents were placed, and also hysterectomy and cholecystectomy. ALLERGIES: ALLERGIC TO CODEINE. SOCIAL HISTORY: The patient was an ex-smoker, quit about 1 year ago. Denies any alcohol abuse. The patient has a 60-havm-hrts history from age 16 to 76. FAMILY HISTORY: Not significant. PERSONAL HISTORY: She is , and she has about six children and three , three daughters alive. CURRENT MEDICATIONS: Include Ambien 5 mg at bedtime, hydralazine 50 mg p.o. every 8 hours, Crestor 10 mg p.o. at bedtime, dopamine, aspirin 81 mg daily, heparin 25,000 units at 12 units per kg per hour, Lantus 10 units subcu at bedtime, Lasix 20 mg p.o. daily, metoprolol 25 mg p.o. b.i.d., norepinephrine 4 mcg per minute, NovoLog, Plavix 75 mg p.o. daily, Protonix, IV fluids half-normal saline at 70 mL per hour. PHYSICAL EXAMINATION: VITAL SIGNS: This morning, blood pressure 122/71, pulse 69, respirations 20, temperature 97.7, saturation 98%. Height 5 feet 4 inches, weight is 110 pounds. GENERAL: Mrs. Holland is a 77-year-old elderly female, moderately built, moderately nourished, not in acute distress. HEENT: Pupils normal and reactive to light and accommodation. Conjunctivae pink. Sclerae anicteric. Tongue is moist, and trachea is midline. LUNGS: Symmetric on both sides. Bilateral breath sounds present. Clear to auscultation. CVS: [place] at the fifth intercostal space, midclavicular line. S1, S2 audible. No murmur. No gallop. ABDOMEN: Normal in appearance. Soft, tympanitic. No guarding. No rigidity. No hepatosplenomegaly. PRESCHOOL DISABILITY TEACHER: The patient is alert, awake, and oriented x3. Nonfocal neuro examination. Cranial nerves II through XII grossly intact. Sensory and motor system is within normal limits. EXTREMITIES: No cyanosis, no clubbing, no edema. LABORATORY DATA: Includes as follows: As of 04/23/2018, sodium 141, potassium 3.7, chloride 100, CO2 of 29, BUN 47, creatinine 2.4, glucose 188, calcium 8.8. As of 04/22/2018, WBC 11.6, hemoglobin 11.2, hematocrit is 32.7, platelets 309. PT 12.3, PTT 31. Sodium 139, potassium is 5.7, chloride 101, CO2 of 27, BUN 45, creatinine 2.1, glucose 164, calcium 8.9. Total bili 0.6, AST 25, ALT 15, alkaline phosphatase 75. Troponin 0.051 and proBNP 2940. Total protein 7.9, albumin is 4. Urinalysis: Straw color, clear, pH 5, specific gravity 1.005, protein negative, glucose negative, ketones negative, blood negative, nitrites negative, bilirubin negative, urobilinogen normal, leukocyte esterase negative, wbc 1, rbc less than 1, bacteria occasional, hyaline cast 3 to 5. Cardiac cath report: Left main is patent, mid 90% to 95% LAD, and STAHL to LAD patent. Left circumflex is 100%, and SVG to ostium likely occluded, and RCA proximal 100%, LVEDP 20. Mild gradient across the aortic valve. Abdominal aortogram: Severe bilateral iliac disease, right common iliac 95% ostial stenosis. RECOMMENDATION: The patient has adequate coronary flow for her lifestyle. No coronary intervention needed. Critical limb ischemia potential for limb loss without intervention. Vascular on care. ASSESSMENT: In summary, Mrs. Holland is a 77-year-old elderly female with a history of hypertension, diabetes, coronary artery disease, chronic kidney disease, status post coronary artery bypass graft, who was admitted with dyspnea on exertion, status post cardiac catheterization this morning. Chronic kidney disease stage 4, most likely secondary to hypertensive nephrosclerosis, cannot rule out diabetic nephropathy less likely and/or advanced age, and cannot rule out renovascular disease due to asymmetry in renal size from the previous ultrasound, right kidney was 9.6 and left kidney was 8.2 cm as of 04/04/2018. PLAN: Continue IV fluids half-normal saline 70 mL per hour, Mucomyst 600 mg p.o. x1 dose prior to the cardiac cath was given, and continue to monitor BMP in a.m. Continue urine output. The patient will have a [id number] risk for the contrast-induced nephropathy. Discussed with the patient's family at bedside. Agree for the procedure. We will follow with you. Thank you for allowing me to participate in your patient's care. Repeat BMP in a.m. Anthony Garrett MD
[2018-04-24] MEDS ORDERED: Pneumococcal 23-Valent Vaccine IM ONE (10:00)
[2018-04-24] MEDS: Pantoprazole 40 mg EC Tab PO SCH (10:08)
--- NOTE | 2018-04-24 10:43 | CP.CCUPN ---
CCU Subjective - Physician Review Subjective (Free Text): PGY-1 critical care progress note for Dr. Ramirez. Patient seen and examined at bedside. Patient resting comfortably, in no acute distress. Wishes to use the commode. Denies chest pain, shortness of breath, nausea, vomiting, abdominal pain, headache, dizziness. CCU Objective - Vital Signs / Intake & Output Vital Signs (Last 4 hours): Vital Signs Pulse Resp BP Pulse Ox 04/24/18 10:20 98 H 23 96 04/24/18 10:12 105 H 19 140/61 97 04/24/18 10:10 102 H 22 98 04/24/18 10:08 124/68 04/24/18 10:00 96 H 21 98 04/24/18 09:50 94 H 17 97 04/24/18 09:42 98 H 21 124/68 97 04/24/18 09:40 97 H 25 H 97 04/24/18 09:30 96 H 13 99 04/24/18 09:20 93 H 17 98 04/24/18 09:11 95 H 22 115/42 L 98 04/24/18 09:10 97 H 19 99 04/24/18 09:00 93 H 17 99 04/24/18 08:41 129/57 L 04/24/18 08:30 102 H 19 98 04/24/18 08:20 96 H 21 98 04/24/18 08:11 99 H 21 124/54 L 98 04/24/18 08:10 101 H 25 H 98 04/24/18 08:00 100 H 17 98 04/24/18 07:50 103 H 25 H 98 04/24/18 07:41 114 H 28 H 129/66 99 04/24/18 07:40 115 H 35 H 99 04/24/18 07:30 98 H 20 99 04/24/18 07:20 95 H 15 97 04/24/18 07:11 96 H 14 107/52 L 98 04/24/18 07:10 96 H 14 97 04/24/18 07:00 94 H 15 97 04/24/18 06:50 98 H 23 98 Intake and Output (Last 8hrs): Intake & Output 04/23/18 04/24/18 04/24/18 22:59 06:59 14:59 Intake Total 156 837.1 370.8 Output Total 100 850 150 Balance 56 -12.9 220.8 Weight 187 lb 6.287 oz Intake: IV 35 Intake, IV Amount 156 802.1 250.8 Left Hand 0 81.6 40.8 Right Distal Port Femoral 0 200 Right Medial Port Femoral 140 490 210 Right Proximal Port 16 30.5 Femoral Oral 0 0 120 Output: Gastric Amount 100 150 Nares 100 150 Urine 700 150 Urethral (Guzman) 700 150 Stool 0 Emesis 0 - Physical Exam Head: Positive for: Atraumatic, Normocephalic Extroacular Muscles: Positive for: EOMI Mouth: Positive for: Moist Mucous Membranes Respiratory/Chest: Positive for: Clear to Auscultation. Negative for: Wheezes, Rales, Rhonchi Cardiovascular: Positive for: Regular Rate and Rhythm, Normal S1, S2 Abdomen: Negative for: Tenderness, Distention, Rebound, Guarding Lower Extremity: Positive for: Other (bilateral feet tender to palpation R>L. ) . Negative for: Edema, CALF TENDERNESS, NORMAL PULSES (dorsalis pedis not palpable) Neurological: Positive for: CN II-XII Intact, Speech Normal, Motor Func Grossly Intact Psychiatric: Positive for: Alert - Medications Active Medications: Active Medications Generic Name Dose Route Start Last Admin Trade Name Freq PRN Reason Stop Dose Admin Aspirin 81 mg 04/23/18 10:00 04/24/18 10:07 Ecotrin PO 81 mg DAILY RUBÉN Administration Clopidogrel Bisulfate 75 mg 04/23/18 10:00 04/24/18 10:08 Plavix PO 75 mg DAILY RUBÉN Administration Furosemide 20 mg 04/23/18 10:00 04/24/18 10:08 Lasix PO 20 mg DAILY RUBÉN Administration Hydralazine HCl 50 mg 04/22/18 22:00 04/24/18 06:37 Apresoline PO Not Given Q8 RUBÉN Dopamine HCl/Dextrose 400 mg in 250 mls @ 18.711 mls/hr 04/23/18 19:17 04:30 Dopamine 400mg/250ml D5w IV 0 mcg/kg/min .[id number] PRN 0 mls/hr Systolic Blood Pressure Titration Protocol 10 MCG/KG/MIN Norepinephrine Bitartrate 4 mg 254 mls @ 15.24 mls/hr 04/23/18 20:37 / Sodium Chloride IV .[id number] PRN TITRATE PER MD ORDER Protocol 4 MCG/MIN Heparin Sodium/Sodium Chloride 25,000 units in 250 mls @ 10.2 mls/hr 04/24/18 07:58 Heparin 12233 Units/250ml 1/2 Normal Saline IV .Q24H PRN ADJUST RATE PER PROTOCOL Protocol 12 UNITS/KG/HR Insulin Aspart 0 unit 04/24/18 11:30 Novolog SC ACHS RUBÉN Protocol Insulin Glargine 10 unit 04/22/18 22:00 04/23/18 23:45 Lantus SC 10 units HS RUBÉN Administration Metoprolol Tartrate 25 mg 04/24/18 10:00 04/24/18 10:08 Lopressor PO 25 mg BID RUBÉN Administration Ondansetron HCl 4 mg 04/24/18 03:30 Zofran Inj IVP Q4H PRN Nausea/Vomiting Pantoprazole Sodium 40 mg 04/23/18 10:00 04/24/18 10:08 Protonix Ec Tab PO 40 mg DAILY RUBÉN Administration Rosuvastatin Calcium 10 mg 04/22/18 22:00 04/23/18 22:15 Crestor PO Not Given HS RUBÉN Zolpidem Tartrate 5 mg 04/22/18 19:57 04/22/18 21:57 Ambien PO 5 mg HS PRN Administration Insomnia - Patient Studies Lab Studies: Lab Studies 04/24/18 04/24/18 04/24/18 Range/Units 06:42 06:14 06:14 WBC (4.8-10.8) K/uL RBC (3.80-5.20) Mil/uL Hgb (11.0-16.0) g/dL Hct (34.0-47.0) % MCV (81.0-99.0) fL MCH (27.0-31.0) pg MCHC (33.0-37.0) g/dL RDW (11.5-14.5) % Plt Count (130-400) K/uL MPV (7.2-11.7) fL Neut % (Auto) (50.0-75.0) % Lymph % (Auto) (20.0-40.0) % [place] % (Auto) (0.0-10.0) % Eos % (Auto) (0.0-4.0) % Baso % (Auto) (0.0-2.0) % Neut # (Auto) (1.8-7.0) K/uL Lymph # (Auto) (1.0-4.3) K/uL [place] # (Auto) (0.0-0.8) K/uL Eos # (Auto) (0.0-0.7) K/uL Baso # (Auto) (0.0-0.2) K/uL PT 13.7 H (9.7-12.2) SECONDS INR 1.3 APTT 91 H D (21-34) SECONDS Puncture Site pCO2 (35-45) mm/Hg pO2 (80-100) mm/Hg HCO3 (21-28) mmol/L ABG pH (7.35-7.45) ABG Total CO2 (22-28) mmol/L ABG O2 Saturation (95-98) % ABG Base Excess (-2.0-3.0) mmol/L Dinesh Test ABG Potassium (3.6-5.2) mmol/L Glucose (65-105) mg/dl Lactate (0.7-2.1) mmol/L Liter Flow Sodium 137 (132-148) mmol/L Potassium 4.2 (3.6-5.2) mmol/L Chloride 102 (98-107) mmol/L Carbon Dioxide 22 (22-30) mmol/L Anion Gap 17 (10-20) BUN 40 H (7-17) mg/dL Creatinine 2.4 H (0.7-1.2) mg/dL Est GFR ( Amer) 24 Est GFR (Non-Af Amer) 20 POC Glucose (mg/dL) 227 H (65-110) mg/dL Random Glucose 231 H (65-105) mg/dL Calcium 8.2 L (8.6-10.4) mg/dl Phosphorus 3.6 (2.5-4.5) mg/dL Magnesium 1.8 (1.6-2.3) mg/dL Total Bilirubin 0.3 (0.2-1.3) mg/dL AST 80 H D (14-36) U/L ALT 26 (9-52) U/L Alkaline Phosphatase 80 (38-126) U/L Total Creatine Kinase (30-135) U/L CK-MB (Mass) (0.0-3.38) ng/mL Troponin I (0.00-0.120) ng/mL Total Protein 7.1 (6.3-8.3) g/dL Albumin 3.5 (3.5-5.0) g/dL Globulin 3.6 (2.2-3.9) gm/dL Albumin/Globulin Ratio 1.0 (1.0-2.1) Procalcitonin (0.19-0.49) NG/ML Arterial Blood Potassium (3.6-5.2) mmol/L Urine Color (YELLOW) Urine Clarity (Clear) Urine pH (5.0-8.0) Ur Specific [place] (1.003-1.030) Urine Protein (NEGATIVE) mg/dL Urine Glucose (UA) (Normal) mg/dL Urine Ketones (NEGATIVE) mg/dL Urine Blood (NEGATIVE) Urine Nitrate (NEGATIVE) Urine Bilirubin (NEGATIVE) Urine Urobilinogen (0.2-1.0) mg/dL Ur Leukocyte Esterase (Negative) Lula/uL Urine WBC (Auto) (0-5) /hpf Urine RBC (Auto) (0-3) /hpf Ur Squamous Epith Cells (0-5) /hpf 04/24/18 04/24/18 04/23/18 Range/Units 06:14 01:09 23:57 WBC 14.0 H (4.8-10.8) K/uL RBC 3.33 L (3.80-5.20) Mil/uL Hgb 9.4 L (11.0-16.0) g/dL Hct 28.2 L (34.0-47.0) % MCV 84.6 (81.0-99.0) fL MCH 28.1 (27.0-31.0) pg MCHC 33.2 (33.0-37.0) g/dL RDW 14.8 H (11.5-14.5) % Plt Count 238 (130-400) K/uL MPV 9.3 (7.2-11.7) fL Neut % (Auto) (50.0-75.0) % Lymph % (Auto) (20.0-40.0) % [place] % (Auto) (0.0-10.0) % Eos % (Auto) (0.0-4.0) % Baso % (Auto) (0.0-2.0) % Neut # (Auto) (1.8-7.0) K/uL Lymph # (Auto) (1.0-4.3) K/uL [place] # (Auto) (0.0-0.8) K/uL Eos # (Auto) (0.0-0.7) K/uL Baso # (Auto) (0.0-0.2) K/uL PT (9.7-12.2) SECONDS INR APTT (21-34) SECONDS Puncture Site Rb pCO2 35 (35-45) mm/Hg pO2 83 (80-100) mm/Hg HCO3 21.5 (21-28) mmol/L ABG pH 7.37 (7.35-7.45) ABG Total CO2 21.3 L (22-28) mmol/L ABG O2 Saturation 98.3 H (95-98) % ABG Base Excess -4.4 L (-2.0-3.0) mmol/L Dinesh Test Na ABG Potassium 3.2 L (3.6-5.2) mmol/L Glucose 263 H (65-105) mg/dl Lactate 2.0 (0.7-2.1) mmol/L Liter Flow 2.0 Sodium 136.0 (132-148) mmol/L Potassium (3.6-5.2) mmol/L Chloride 102.0 (98-107) mmol/L Carbon Dioxide (22-30) mmol/L Anion Gap (10-20) BUN (7-17) mg/dL Creatinine (0.7-1.2) mg/dL Est GFR ( Amer) Est GFR (Non-Af Amer) POC Glucose (mg/dL) (65-110) mg/dL Random Glucose (65-105) mg/dL Calcium (8.6-10.4) mg/dl Phosphorus (2.5-4.5) mg/dL Magnesium (1.6-2.3) mg/dL Total Bilirubin (0.2-1.3) mg/dL AST (14-36) U/L ALT (9-52) U/L Alkaline Phosphatase (38-126) U/L Total Creatine Kinase (30-135) U/L CK-MB (Mass) (0.0-3.38) ng/mL Troponin I (0.00-0.120) ng/mL Total Protein (6.3-8.3) g/dL Albumin (3.5-5.0) g/dL Globulin (2.2-3.9) gm/dL Albumin/Globulin Ratio (1.0-2.1) Procalcitonin (0.19-0.49) NG/ML Arterial Blood Potassium 3.2 L (3.6-5.2) mmol/L Urine Color Yellow (YELLOW) Urine Clarity Clear (Clear) Urine pH 5.0 (5.0-8.0) Ur Specific [place] 1.044 H (1.003-1.030) Urine Protein Negative (NEGATIVE) mg/dL Urine Glucose (UA) Normal (Normal) mg/dL Urine Ketones Trace (NEGATIVE) mg/dL Urine Blood Negative (NEGATIVE) Urine Nitrate Negative (NEGATIVE) Urine Bilirubin Negative (NEGATIVE) Urine Urobilinogen Normal (0.2-1.0) mg/dL Ur Leukocyte Esterase Neg (Negative) Lula/uL Urine WBC (Auto) < 1 (0-5) /hpf Urine RBC (Auto) 1 (0-3) /hpf Ur Squamous Epith Cells 1 (0-5) /hpf 04/23/18 04/23/18 04/23/18 Range/Units 22:51 21:11 21:11 WBC (4.8-10.8) K/uL RBC (3.80-5.20) Mil/uL Hgb (11.0-16.0) g/dL Hct (34.0-47.0) % MCV (81.0-99.0) fL MCH (27.0-31.0) pg MCHC (33.0-37.0) g/dL RDW (11.5-14.5) % Plt Count (130-400) K/uL MPV (7.2-11.7) fL Neut % (Auto) (50.0-75.0) % Lymph % (Auto) (20.0-40.0) % [place] % (Auto) (0.0-10.0) % Eos % (Auto) (0.0-4.0) % Baso % (Auto) (0.0-2.0) % Neut # (Auto) (1.8-7.0) K/uL Lymph # (Auto) (1.0-4.3) K/uL [place] # (Auto) (0.0-0.8) K/uL Eos # (Auto) (0.0-0.7) K/uL Baso # (Auto) (0.0-0.2) K/uL PT (9.7-12.2) SECONDS INR APTT (21-34) SECONDS Puncture Site pCO2 (35-45) mm/Hg pO2 (80-100) mm/Hg HCO3 (21-28) mmol/L ABG pH (7.35-7.45) ABG Total CO2 (22-28) mmol/L ABG O2 Saturation (95-98) % ABG Base Excess (-2.0-3.0) mmol/L Dinesh Test ABG Potassium (3.6-5.2) mmol/L Glucose (65-105) mg/dl Lactate (0.7-2.1) mmol/L Liter Flow Sodium 138 (132-148) mmol/L Potassium 3.5 L (3.6-5.2) mmol/L Chloride 100 (98-107) mmol/L Carbon Dioxide 20 L (22-30) mmol/L Anion Gap 22 H (10-20) BUN 40 H (7-17) mg/dL Creatinine 2.3 H (0.7-1.2) mg/dL Est GFR ( Amer) 25 Est GFR (Non-Af Amer) 21 POC Glucose (mg/dL) 283 H (65-110) mg/dL Random Glucose 271 H (65-105) mg/dL Calcium 8.5 L (8.6-10.4) mg/dl Phosphorus 4.1 (2.5-4.5) mg/dL Magnesium 1.8 (1.6-2.3) mg/dL Total Bilirubin 0.5 (0.2-1.3) mg/dL AST 18 (14-36) U/L ALT 13 (9-52) U/L Alkaline Phosphatase 90 (38-126) U/L Total Creatine Kinase 53 (30-135) U/L CK-MB (Mass) 0.95 (0.0-3.38) ng/mL Troponin I 0.0540 (0.00-0.120) ng/mL Total Protein 7.6 (6.3-8.3) g/dL Albumin 3.7 (3.5-5.0) g/dL Globulin 3.9 (2.2-3.9) gm/dL Albumin/Globulin Ratio 0.9 L (1.0-2.1) Procalcitonin < 0.05 L (0.19-0.49) NG/ML Arterial Blood Potassium (3.6-5.2) mmol/L Urine Color (YELLOW) Urine Clarity (Clear) Urine pH (5.0-8.0) Ur Specific [place] (1.003-1.030) Urine Protein (NEGATIVE) mg/dL Urine Glucose (UA) (Normal) mg/dL Urine Ketones (NEGATIVE) mg/dL Urine Blood (NEGATIVE) Urine Nitrate (NEGATIVE) Urine Bilirubin (NEGATIVE) Urine Urobilinogen (0.2-1.0) mg/dL Ur Leukocyte Esterase (Negative) Lula/uL Urine WBC (Auto) (0-5) /hpf Urine RBC (Auto) (0-3) /hpf Ur Squamous Epith Cells (0-5) /hpf 04/23/18 04/23/18 04/23/18 Range/Units 21:11 19:24 15:21 WBC 23.4 H D (4.8-10.8) K/uL RBC 3.64 L (3.80-5.20) Mil/uL Hgb 10.1 L (11.0-16.0) g/dL Hct 31.1 L (34.0-47.0) % MCV 85.3 (81.0-99.0) fL MCH 27.7 (27.0-31.0) pg MCHC 32.4 L (33.0-37.0) g/dL RDW 14.9 H (11.5-14.5) % Plt Count 308 (130-400) K/uL MPV 9.4 (7.2-11.7) fL Neut % (Auto) 78.4 H (50.0-75.0) % Lymph % (Auto) 17.0 L (20.0-40.0) % [place] % (Auto) 3.8 (0.0-10.0) % Eos % (Auto) 0.6 (0.0-4.0) % Baso % (Auto) 0.2 (0.0-2.0) % Neut # (Auto) 18.4 H (1.8-7.0) K/uL Lymph # (Auto) 4.0 (1.0-4.3) K/uL [place] # (Auto) 0.9 H (0.0-0.8) K/uL Eos # (Auto) 0.1 (0.0-0.7) K/uL Baso # (Auto) 0.0 (0.0-0.2) K/uL PT (9.7-12.2) SECONDS INR APTT (21-34) SECONDS Puncture Site pCO2 (35-45) mm/Hg pO2 (80-100) mm/Hg HCO3 (21-28) mmol/L ABG pH (7.35-7.45) ABG Total CO2 (22-28) mmol/L ABG O2 Saturation (95-98) % ABG Base Excess (-2.0-3.0) mmol/L Dinesh Test ABG Potassium (3.6-5.2) mmol/L Glucose (65-105) mg/dl Lactate (0.7-2.1) mmol/L Liter Flow Sodium (132-148) mmol/L Potassium (3.6-5.2) mmol/L Chloride (98-107) mmol/L Carbon Dioxide (22-30) mmol/L Anion Gap (10-20) BUN (7-17) mg/dL Creatinine (0.7-1.2) mg/dL Est GFR ( Amer) Est GFR (Non-Af Amer) POC Glucose (mg/dL) 145 H 129 H (65-110) mg/dL Random Glucose (65-105) mg/dL Calcium (8.6-10.4) mg/dl Phosphorus (2.5-4.5) mg/dL Magnesium (1.6-2.3) mg/dL Total Bilirubin (0.2-1.3) mg/dL AST (14-36) U/L ALT (9-52) U/L Alkaline Phosphatase (38-126) U/L Total Creatine Kinase (30-135) U/L CK-MB (Mass) (0.0-3.38) ng/mL Troponin I (0.00-0.120) ng/mL Total Protein (6.3-8.3) g/dL Albumin (3.5-5.0) g/dL Globulin (2.2-3.9) gm/dL Albumin/Globulin Ratio (1.0-2.1) Procalcitonin (0.19-0.49) NG/ML Arterial Blood Potassium (3.6-5.2) mmol/L Urine Color (YELLOW) Urine Clarity (Clear) Urine pH (5.0-8.0) Ur Specific [place] (1.003-1.030) Urine Protein (NEGATIVE) mg/dL Urine Glucose (UA) (Normal) mg/dL Urine Ketones (NEGATIVE) mg/dL Urine Blood (NEGATIVE) Urine Nitrate (NEGATIVE) Urine Bilirubin (NEGATIVE) Urine Urobilinogen (0.2-1.0) mg/dL Ur Leukocyte Esterase (Negative) Lula/uL Urine WBC (Auto) (0-5) /hpf Urine RBC (Auto) (0-3) /hpf Ur Squamous Epith Cells (0-5) /hpf 04/23/18 Range/Units 11:21 WBC (4.8-10.8) K/uL RBC (3.80-5.20) Mil/uL Hgb (11.0-16.0) g/dL Hct (34.0-47.0) % MCV (81.0-99.0) fL MCH (27.0-31.0) pg MCHC (33.0-37.0) g/dL RDW (11.5-14.5) % Plt Count (130-400) K/uL MPV (7.2-11.7) fL Neut % (Auto) (50.0-75.0) % Lymph % (Auto) (20.0-40.0) % [place] % (Auto) (0.0-10.0) % Eos % (Auto) (0.0-4.0) % Baso % (Auto) (0.0-2.0) % Neut # (Auto) (1.8-7.0) K/uL Lymph # (Auto) (1.0-4.3) K/uL [place] # (Auto) (0.0-0.8) K/uL Eos # (Auto) (0.0-0.7) K/uL Baso # (Auto) (0.0-0.2) K/uL PT (9.7-12.2) SECONDS INR APTT (21-34) SECONDS Puncture Site pCO2 (35-45) mm/Hg pO2 (80-100) mm/Hg HCO3 (21-28) mmol/L ABG pH (7.35-7.45) ABG Total CO2 (22-28) mmol/L ABG O2 Saturation (95-98) % ABG Base Excess (-2.0-3.0) mmol/L Dinesh Test ABG Potassium (3.6-5.2) mmol/L Glucose (65-105) mg/dl Lactate (0.7-2.1) mmol/L Liter Flow Sodium (132-148) mmol/L Potassium (3.6-5.2) mmol/L Chloride (98-107) mmol/L Carbon Dioxide (22-30) mmol/L Anion Gap (10-20) BUN (7-17) mg/dL Creatinine (0.7-1.2) mg/dL Est GFR ( Amer) Est GFR (Non-Af Amer) POC Glucose (mg/dL) 150 H (65-110) mg/dL Random Glucose (65-105) mg/dL Calcium (8.6-10.4) mg/dl Phosphorus (2.5-4.5) mg/dL Magnesium (1.6-2.3) mg/dL Total Bilirubin (0.2-1.3) mg/dL AST (14-36) U/L ALT (9-52) U/L Alkaline Phosphatase (38-126) U/L Total Creatine Kinase (30-135) U/L CK-MB (Mass) (0.0-3.38) ng/mL Troponin I (0.00-0.120) ng/mL Total Protein (6.3-8.3) g/dL Albumin (3.5-5.0) g/dL Globulin (2.2-3.9) gm/dL Albumin/Globulin Ratio (1.0-2.1) Procalcitonin (0.19-0.49) NG/ML Arterial Blood Potassium (3.6-5.2) mmol/L Urine Color (YELLOW) Urine Clarity (Clear) Urine pH (5.0-8.0) Ur Specific [place] (1.003-1.030) Urine Protein (NEGATIVE) mg/dL Urine Glucose (UA) (Normal) mg/dL Urine Ketones (NEGATIVE) mg/dL Urine Blood (NEGATIVE) Urine Nitrate (NEGATIVE) Urine Bilirubin (NEGATIVE) Urine Urobilinogen (0.2-1.0) mg/dL Ur Leukocyte Esterase (Negative) Lula/uL Urine WBC (Auto) (0-5) /hpf Urine RBC (Auto) (0-3) /hpf Ur Squamous Epith Cells (0-5) /hpf Laboratory Results - last 24 hr 04/23/18 04/23/18 04/23/18 11:21 15:21 19:24 WBC RBC Hgb Hct MCV MCH MCHC RDW Plt Count MPV Neut % (Auto) Lymph % (Auto) [place] % (Auto) Eos % (Auto) Baso % (Auto) Neut # (Auto) Lymph # (Auto) [place] # (Auto) Eos # (Auto) Baso # (Auto) PT INR APTT Puncture Site pCO2 pO2 HCO3 ABG pH ABG Total CO2 ABG O2 Saturation ABG Base Excess Dinesh Test ABG Potassium Glucose Lactate Liter Flow Sodium Potassium Chloride Carbon Dioxide Anion Gap BUN Creatinine Est GFR ( Amer) Est GFR (Non-Af Amer) POC Glucose (mg/dL) 150 H 129 H 145 H Random Glucose Calcium Phosphorus Magnesium Total Bilirubin AST ALT Alkaline Phosphatase Total Creatine Kinase CK-MB (Mass) Troponin I Total Protein Albumin Globulin Albumin/Globulin Ratio Procalcitonin Arterial Blood Potassium Urine Color Urine Clarity Urine pH Ur Specific [place] Urine Protein Urine Glucose (UA) Urine Ketones Urine Blood Urine Nitrate Urine Bilirubin Urine Urobilinogen Ur Leukocyte Esterase Urine WBC (Auto) Urine RBC (Auto) Ur Squamous Epith Cells 04/23/18 04/23/18 04/23/18 21:11 21:11 21:11 WBC 23.4 H D RBC 3.64 L Hgb 10.1 L Hct 31.1 L MCV 85.3 MCH 27.7 MCHC 32.4 L RDW 14.9 H Plt Count 308 MPV 9.4 Neut % (Auto) 78.4 H Lymph % (Auto) 17.0 L [place] % (Auto) 3.8 Eos % (Auto) 0.6 Baso % (Auto) 0.2 Neut # (Auto) 18.4 H Lymph # (Auto) 4.0 [place] # (Auto) 0.9 H Eos # (Auto) 0.1 Baso # (Auto) 0.0 PT INR APTT Puncture Site pCO2 pO2 HCO3 ABG pH ABG Total CO2 ABG O2 Saturation ABG Base Excess Dinesh Test ABG Potassium Glucose Lactate Liter Flow Sodium 138 Potassium 3.5 L Chloride 100 Carbon Dioxide 20 L Anion Gap 22 H BUN 40 H Creatinine 2.3 H Est GFR ( Amer) 25 Est GFR (Non-Af Amer) 21 POC Glucose (mg/dL) Random Glucose 271 H Calcium 8.5 L Phosphorus 4.1 Magnesium 1.8 Total Bilirubin 0.5 AST 18 ALT 13 Alkaline Phosphatase 90 Total Creatine Kinase 53 CK-MB (Mass) 0.95 Troponin I 0.0540 Total Protein 7.6 Albumin 3.7 Globulin 3.9 Albumin/Globulin Ratio 0.9 L Procalcitonin < 0.05 L Arterial Blood Potassium Urine Color Urine Clarity Urine pH Ur Specific [place] Urine Protein Urine Glucose (UA) Urine Ketones Urine Blood Urine Nitrate Urine Bilirubin Urine Urobilinogen Ur Leukocyte Esterase Urine WBC (Auto) Urine RBC (Auto) Ur Squamous Epith Cells 04/23/18 04/23/18 04/24/18 22:51 23:57 01:09 WBC RBC Hgb Hct MCV MCH MCHC RDW Plt Count MPV Neut % (Auto) Lymph % (Auto) [place] % (Auto) Eos % (Auto) Baso % (Auto) Neut # (Auto) Lymph # (Auto) [place] # (Auto) Eos # (Auto) Baso # (Auto) PT INR APTT Puncture Site Rb pCO2 35 pO2 83 HCO3 21.5 ABG pH 7.37 ABG Total CO2 21.3 L ABG O2 Saturation 98.3 H ABG Base Excess -4.4 L Dinesh Test Na ABG Potassium 3.2 L Glucose 263 H Lactate 2.0 Liter Flow 2.0 Sodium 136.0 Potassium Chloride 102.0 Carbon Dioxide Anion Gap BUN Creatinine Est GFR ( Amer) Est GFR (Non-Af Amer) POC Glucose (mg/dL) 283 H Random Glucose Calcium Phosphorus Magnesium Total Bilirubin AST ALT Alkaline Phosphatase Total Creatine Kinase CK-MB (Mass) Troponin I Total Protein Albumin Globulin Albumin/Globulin Ratio Procalcitonin Arterial Blood Potassium 3.2 L Urine Color Yellow Urine Clarity Clear Urine pH 5.0 Ur Specific [place] 1.044 H Urine Protein Negative Urine Glucose (UA) Normal Urine Ketones Trace Urine Blood Negative Urine Nitrate Negative Urine Bilirubin Negative Urine Urobilinogen Normal Ur Leukocyte Esterase Neg Urine WBC (Auto) < 1 Urine RBC (Auto) 1 Ur Squamous Epith Cells 1 04/24/18 04/24/18 04/24/18 06:14 06:14 06:14 WBC 14.0 H RBC 3.33 L Hgb 9.4 L Hct 28.2 L MCV 84.6 MCH 28.1 MCHC 33.2 RDW 14.8 H Plt Count 238 MPV 9.3 Neut % (Auto) Lymph % (Auto) [place] % (Auto) Eos % (Auto) Baso % (Auto) Neut # (Auto) Lymph # (Auto) [place] # (Auto) Eos # (Auto) Baso # (Auto) PT 13.7 H INR 1.3 APTT 91 H D Puncture Site pCO2 pO2 HCO3 ABG pH ABG Total CO2 ABG O2 Saturation ABG Base Excess Dinesh Test ABG Potassium Glucose Lactate Liter Flow Sodium 137 Potassium 4.2 Chloride 102 Carbon Dioxide 22 Anion Gap 17 BUN 40 H Creatinine 2.4 H Est GFR ( Amer) 24 Est GFR (Non-Af Amer) 20 POC Glucose (mg/dL) Random Glucose 231 H Calcium 8.2 L Phosphorus 3.6 Magnesium 1.8 Total Bilirubin 0.3 AST 80 H D ALT 26 Alkaline Phosphatase 80 Total Creatine Kinase CK-MB (Mass) Troponin I Total Protein 7.1 Albumin 3.5 Globulin 3.6 Albumin/Globulin Ratio 1.0 Procalcitonin Arterial Blood Potassium Urine Color Urine Clarity Urine pH Ur Specific [place] Urine Protein Urine Glucose (UA) Urine Ketones Urine Blood Urine Nitrate Urine Bilirubin Urine Urobilinogen Ur Leukocyte Esterase Urine WBC (Auto) Urine RBC (Auto) Ur Squamous Epith Cells 04/24/18 06:42 WBC RBC Hgb Hct MCV MCH MCHC RDW Plt Count MPV Neut % (Auto) Lymph % (Auto) [place] % (Auto) Eos % (Auto) Baso % (Auto) Neut # (Auto) Lymph # (Auto) [place] # (Auto) Eos # (Auto) Baso # (Auto) PT INR APTT Puncture Site pCO2 pO2 HCO3 ABG pH ABG Total CO2 ABG O2 Saturation ABG Base Excess Dinesh Test ABG Potassium Glucose Lactate Liter Flow Sodium Potassium Chloride Carbon Dioxide Anion Gap BUN Creatinine Est GFR ( Amer) Est GFR (Non-Af Amer) POC Glucose (mg/dL) 227 H Random Glucose Calcium Phosphorus Magnesium Total Bilirubin AST ALT Alkaline Phosphatase Total Creatine Kinase CK-MB (Mass) Troponin I Total Protein Albumin Globulin Albumin/Globulin Ratio Procalcitonin Arterial Blood Potassium Urine Color Urine Clarity Urine pH Ur Specific [place] Urine Protein Urine Glucose (UA) Urine Ketones Urine Blood Urine Nitrate Urine Bilirubin Urine Urobilinogen Ur Leukocyte Esterase Urine WBC (Auto) Urine RBC (Auto) Ur Squamous Epith Cells Fingerstick Blood Sugar Results: 227 Review of Systems - Review of Systems All systems: reviewed and no additional remarkable complaints except (as per HPI ) Critical Care Progress Note - Nutrition Nutrition: Nutrition Category Date Time Status NPO Diet [DIET] Diets 04/24/18 Breakfast Active Assessment/Plan - Assessment and Plan (Free Text) Plan: 77 yo F PMHx GA, cardiac catheterization with stent placement, PVD, admitted to ICU s/p cardiac catheterization (without stent placement) for monitoring following [employer] for hypotention. Patient placed on pressors overnight, now dc'ed. Neuro: Patient AOx3 Zolpidem 5mg PO HS Cardio: BP stable pressors dc'ed TLC R femoral dc'ed lasix metoprolol Tartrate crestor Pulm: maintain SpO2 >95% GI: NG tube dc'ed Heart Health diet Zofran PRN Renal: Cr: 2.4 monitor ID: WBC: 14, downtrending f/u blood cx Heme: H/H: 9.4/28.2 monitor Plavix Endo: maintain euglycemia glargine Ppx: Heparin drip, Protonix Dispo: Patient stable for transfer to telemetry. Case was reviewed and discussed with attending physician, Dr. Ramirez.
--- NOTE | 2018-04-24 10:57 | RAD ---
HISTORY: hypotension s/p cardiac cath COMPARISON: Chest x-ray performed 04/22/18 TECHNIQUE: Chest, one view. FINDINGS: LUNGS: Mild pulmonary venous congestion. Mild patchy bibasilar atelectasis. No focal consolidation. Please note that chest x-ray has limited sensitivity for the detection of pulmonary masses. PLEURA: No significant pleural effusion identified. No definite pneumothorax . CARDIOVASCULAR: Median sternotomy wires. Heart size appears borderline. OSSEOUS STRUCTURES: Degenerative changes. VISUALIZED UPPER ABDOMEN: Unremarkable. OTHER FINDINGS: None. IMPRESSION: Mild pulmonary venous congestion. Mild patchy bibasilar atelectasis.
--- NOTE | 2018-04-24 11:53 | CP.PCM.PN ---
<Dottie Taylor - Last Filed: 04/24/18 14:19> Subjective - Date & Time of Evaluation Date of Evaluation: 04/24/18 Time of Evaluation: 11:52 - Subjective Subjective: Cardiology Progress Note - Dr Brewer Patient seen and examined at bedside. MEDICAL RECORDS SPECIALIST was called for hypotension s/p cardiac catherization. Central line was placed and patient was transferred to the ICU. Patient was started on pressors. Currently BPs have improved, Patient denies any chest pain or dyspnea. Denies any nausea or vomiting as well. Objective - Vital Signs/Intake and Output Vital Signs (last 24 hours): Temp Pulse Resp BP Pulse Ox 98.5 F 98 H 23 140/61 96 04/24/18 04:00 04/24/18 10:20 04/24/18 10:20 04/24/18 10:12 04/24/18 10:20 Intake and Output: 04/24/18 04/24/18 06:59 18:59 Intake Total 993.1 370.8 Output Total 950 150 Balance 43.1 220.8 - Medications Medications: Current Medications Aspirin (Ecotrin) 81 mg PO DAILY [facility] Last Admin: 04/24/18 10:07 Dose: 81 mg Clopidogrel Bisulfate (Plavix) 75 mg PO DAILY [facility] Last Admin: 04/24/18 10:08 Dose: 75 mg Furosemide (Lasix) 20 mg PO DAILY [facility] Last Admin: 04/24/18 10:08 Dose: 20 mg Hydralazine HCl (Apresoline) 50 mg PO Q8 [facility] Last Admin: 04/24/18 06:37 Dose: Not Given Dopamine HCl/Dextrose (Dopamine 400mg/250ml D5w) 400 mg in 250 mls @ 18.711 mls /hr IV .[id number] PRN; Protocol; 10 MCG/KG/MIN PRN Reason: Systolic Blood Pressure Last Titration: 04/24/18 04:30 Dose: 0 mcg/kg/min, 0 mls/hr Norepinephrine Bitartrate 4 mg (/ Sodium Chloride) 254 mls @ 15.24 mls/hr IV .[id number] PRN; Protocol; 4 MCG/MIN PRN Reason: TITRATE PER MD ORDER Heparin Sodium/Sodium Chloride (Heparin 89800 Units/250ml 1/2 Normal Saline) 25 ,000 units in 250 mls @ 10.2 mls/hr IV .Q24H PRN; Protocol; 12 UNITS/KG/HR PRN Reason: ADJUST RATE PER PROTOCOL Insulin Aspart (Novolog) 0 unit SC ACHS [facility] PRN Reason: Protocol Insulin Glargine (Lantus) 10 unit SC HS [facility] Last Admin: 04/23/18 23:45 Dose: 10 units Metoprolol Tartrate (Lopressor) 25 mg PO BID [facility] Last Admin: 04/24/18 10:08 Dose: 25 mg Ondansetron HCl (Zofran Inj) 4 mg IVP Q4H PRN PRN Reason: Nausea/Vomiting Pantoprazole Sodium (Protonix Ec Tab) 40 mg PO DAILY [facility] Last Admin: 04/24/18 10:08 Dose: 40 mg Rosuvastatin Calcium (Crestor) 10 mg PO HS [facility] Last Admin: 04/23/18 22:15 Dose: Not Given Zolpidem Tartrate (Ambien) 5 mg PO HS PRN PRN Reason: Insomnia Last Admin: 04/22/18 21:57 Dose: 5 mg - Labs Labs: 04/24/18 06:14 04/24/18 06:14 PT 13.7 SECONDS (9.7-12.2) H 04/24/18 06:14 INR 1.3 04/24/18 06:14 APTT 143 SECONDS (21-34) H* D 04/24/18 11:09 - Constitutional Appears: Non-toxic, Chronically Ill - Head Exam Head Exam: ATRAUMATIC, NORMAL INSPECTION - Eye Exam Eye Exam: EOMI, Normal appearance - ENT Exam Additional comments: +NGT - Respiratory Exam Respiratory Exam: Clear to Ausculation Bilateral, NORMAL BREATHING PATTERN - Cardiovascular Exam Cardiovascular Exam: REGULAR RHYTHM, +S1, +S2 - GI/Abdominal Exam GI & Abdominal Exam: Soft. absent: Tenderness - Extremities Exam Extremities Exam: Full ROM. absent: Calf Tenderness Additional comments: Toes appear cyanotic, diminished pedal pulses - Neurological Exam Neurological Exam: Alert, Awake, Oriented x3 - Psychiatric Exam Psychiatric exam: Normal Affect, Normal Mood - Skin Skin Exam: Dry Assessment and Plan - Assessment and Plan (Free Text) Assessment: A/P: Patient is a 77 year old female with past medical history of CAD, CABG x 2 , HTN, Hyperlipidemia, Peripheral arterial disease, CKD who is s/p cardiac cath Severe PAD with Critical limb ischemia -Critical limb ischemia. Potential for limb loss without intervention. Vascular on case -Continue Heparin drip -Vascular on consult CAD/CHF -Patient s/p s/p LHC/Coronary angiogram/Graft angiogram/Abdominal aortogram -Showed L Main: patent, LAD: Mid 90-95% (STAHL to LAD patent), L Cx: 100%, SVG to OM Likely occluded, RCA: Proximal 100% (SVG to RCA patent), LVEDP: -20, Mild gradient across Aortic valve, Abdominal Aortogram: Severe b/l Iliiac disease, Right CI 95% ostial stenosis -Patient became hypotensive post cath requiring pressors likely due to sedation -Off pressors, ICU management -Patient has adequate coronary flow for her lifestyle. No coronary intervention needed -Last echo 03/2018 showed EF 30-35%, moderate LV diastolic dysfunction -Continue ASA and Plavix Diabetes Mellitus -Lantus 10 units HS -Insulin sliding scale CKD -Neprho on consult Plan discussed with Dr Osman Taylor DO PGY-2 <Kenny Brewer - Last Filed: 04/24/18 23:32> Objective - Vital Signs/Intake and Output Vital Signs (last 24 hours): Temp Pulse Resp BP Pulse Ox 98.6 F 81 20 120/62 96 04/24/18 20:00 04/24/18 21:00 04/24/18 21:00 04/24/18 20:00 04/24/18 21:00 Intake and Output: 04/24/18 04/25/18 18:59 06:59 Intake Total 1029.2 23.1 Output Total 465 0 Balance 564.2 23.1 - Medications Medications: Current Medications Aspirin (Ecotrin) 81 mg PO DAILY [facility] Last Admin: 04/24/18 10:07 Dose: 81 mg Clopidogrel Bisulfate (Plavix) 75 mg PO DAILY [facility] Last Admin: 04/24/18 10:08 Dose: 75 mg Furosemide (Lasix) 20 mg PO DAILY [facility] Last Admin: 04/24/18 10:08 Dose: 20 mg Hydralazine HCl (Apresoline) 50 mg PO Q8 [facility] Last Admin: 04/24/18 22:48 Dose: 50 mg Heparin Sodium/Sodium Chloride (Heparin 82564 Units/250ml 1/2 Normal Saline) 25 ,000 units in 250 mls @ 10.2 mls/hr IV .Q24H PRN; Protocol; 12 UNITS/KG/HR PRN Reason: ADJUST RATE PER PROTOCOL Last Titration: 04/24/18 13:45 Dose: 9 units/kg/hr, 7.65 mls/hr Insulin Aspart (Novolog) 0 unit SC ACHS [facility] PRN Reason: Protocol Last Admin: 04/24/18 22:48 Dose: 2 u Insulin Glargine (Lantus) 10 unit SC HS [facility] Last Admin: 04/24/18 22:48 Dose: 10 units Metoprolol Tartrate (Lopressor) 25 mg PO BID [facility] Last Admin: 04/24/18 18:24 Dose: Not Given Ondansetron HCl (Zofran Inj) 4 mg IVP Q4H PRN PRN Reason: Nausea/Vomiting Pantoprazole Sodium (Protonix Ec Tab) 40 mg PO DAILY [facility] Last Admin: 04/24/18 10:08 Dose: 40 mg Rosuvastatin Calcium (Crestor) 10 mg PO HS [facility] Last Admin: 04/24/18 22:47 Dose: 10 mg Zolpidem Tartrate (Ambien) 5 mg PO HS PRN PRN Reason: Insomnia Last Admin: 04/24/18 22:57 Dose: 5 mg - Labs Labs: 04/24/18 06:14 04/24/18 06:14 PT 13.7 SECONDS (9.7-12.2) H 04/24/18 06:14 INR 1.3 04/24/18 06:14 APTT 86 SECONDS (21-34) H D 04/24/18 20:22 Assessment and Plan - Assessment and Plan (Free Text) Assessment: Patient seen and evaluated personally by nv Plan of care d/w the biomedical photographer and as documented
[2018-04-24] MEDS: Heparin25000 units/250ml 1/2NS 25,000 UNITS/250 ML BAG IV PRN (12:03)
--- NOTE | 2018-04-24 20:43 | CP.PCM.PN ---
Subjective - Date & Time of Evaluation Date of Evaluation: 04/24/18 Time of Evaluation: 20:43 - Subjective Subjective: pt is seen and examined, follow up consult is dictated #[id number] Objective - Vital Signs/Intake and Output Vital Signs (last 24 hours): Temp Pulse Resp BP Pulse Ox 98.5 F 83 25 H 107/51 L 96 04/24/18 04:00 04/24/18 19:40 04/24/18 19:40 04/24/18 18:24 04/24/18 19:40 Intake and Output: 04/24/18 04/25/18 18:59 06:59 Intake Total 1029.2 7.7 Output Total 465 Balance 564.2 7.7 - Medications Medications: Current Medications Aspirin (Ecotrin) 81 mg PO DAILY [facility] Last Admin: 04/24/18 10:07 Dose: 81 mg Clopidogrel Bisulfate (Plavix) 75 mg PO DAILY [facility] Last Admin: 04/24/18 10:08 Dose: 75 mg Furosemide (Lasix) 20 mg PO DAILY [facility] Last Admin: 04/24/18 10:08 Dose: 20 mg Hydralazine HCl (Apresoline) 50 mg PO Q8 [facility] Last Admin: 04/24/18 13:59 Dose: Not Given Heparin Sodium/Sodium Chloride (Heparin 96326 Units/250ml 1/2 Normal Saline) 25 ,000 units in 250 mls @ 10.2 mls/hr IV .Q24H PRN; Protocol; 12 UNITS/KG/HR PRN Reason: ADJUST RATE PER PROTOCOL Last Titration: 04/24/18 13:45 Dose: 9 units/kg/hr, 7.65 mls/hr Insulin Aspart (Novolog) 0 unit SC ACHS [facility] PRN Reason: Protocol Last Admin: 04/24/18 17:20 Dose: Not Given Insulin Glargine (Lantus) 10 unit SC HS [facility] Last Admin: 04/23/18 23:45 Dose: 10 units Metoprolol Tartrate (Lopressor) 25 mg PO BID [facility] Last Admin: 04/24/18 18:24 Dose: Not Given Ondansetron HCl (Zofran Inj) 4 mg IVP Q4H PRN PRN Reason: Nausea/Vomiting Pantoprazole Sodium (Protonix Ec Tab) 40 mg PO DAILY [facility] Last Admin: 04/24/18 10:08 Dose: 40 mg Rosuvastatin Calcium (Crestor) 10 mg PO HS [facility] Last Admin: 04/23/18 22:15 Dose: Not Given Zolpidem Tartrate (Ambien) 5 mg PO HS PRN PRN Reason: Insomnia Last Admin: 04/22/18 21:57 Dose: 5 mg - Labs Labs: 04/24/18 06:14 04/24/18 06:14 PT 13.7 SECONDS (9.7-12.2) H 04/24/18 06:14 INR 1.3 04/24/18 06:14 APTT 86 SECONDS (21-34) H D 04/24/18 20:22
[2018-04-24] MEDS: (Lantus) Insulin Glargine, Recombinant SC SCH (22:48)
--- NOTE | 2018-04-24 23:14 | CP.PCM.PN ---
Objective - Vital Signs/Intake and Output Vital Signs (last 24 hours): Temp Pulse Resp BP Pulse Ox 98.6 F 81 20 120/62 96 04/24/18 20:00 04/24/18 21:00 04/24/18 21:00 04/24/18 20:00 04/24/18 21:00 Intake and Output: 04/24/18 04/25/18 18:59 06:59 Intake Total 1029.2 23.1 Output Total 465 0 Balance 564.2 23.1 - Medications Medications: Current Medications Aspirin (Ecotrin) 81 mg PO DAILY [facility] Last Admin: 04/24/18 10:07 Dose: 81 mg Clopidogrel Bisulfate (Plavix) 75 mg PO DAILY [facility] Last Admin: 04/24/18 10:08 Dose: 75 mg Furosemide (Lasix) 20 mg PO DAILY [facility] Last Admin: 04/24/18 10:08 Dose: 20 mg Hydralazine HCl (Apresoline) 50 mg PO Q8 [facility] Last Admin: 04/24/18 22:48 Dose: 50 mg Heparin Sodium/Sodium Chloride (Heparin 71639 Units/250ml 1/2 Normal Saline) 25 ,000 units in 250 mls @ 10.2 mls/hr IV .Q24H PRN; Protocol; 12 UNITS/KG/HR PRN Reason: ADJUST RATE PER PROTOCOL Last Titration: 04/24/18 13:45 Dose: 9 units/kg/hr, 7.65 mls/hr Insulin Aspart (Novolog) 0 unit SC ACHS [facility] PRN Reason: Protocol Last Admin: 04/24/18 22:48 Dose: 2 u Insulin Glargine (Lantus) 10 unit SC HS [facility] Last Admin: 04/24/18 22:48 Dose: 10 units Metoprolol Tartrate (Lopressor) 25 mg PO BID [facility] Last Admin: 04/24/18 18:24 Dose: Not Given Ondansetron HCl (Zofran Inj) 4 mg IVP Q4H PRN PRN Reason: Nausea/Vomiting Pantoprazole Sodium (Protonix Ec Tab) 40 mg PO DAILY [facility] Last Admin: 04/24/18 10:08 Dose: 40 mg Rosuvastatin Calcium (Crestor) 10 mg PO HS [facility] Last Admin: 04/24/18 22:47 Dose: 10 mg Zolpidem Tartrate (Ambien) 5 mg PO HS PRN PRN Reason: Insomnia Last Admin: 04/24/18 22:57 Dose: 5 mg - Labs Labs: 04/24/18 06:14 04/24/18 06:14 PT 13.7 SECONDS (9.7-12.2) H 04/24/18 06:14 INR 1.3 04/24/18 06:14 APTT 86 SECONDS (21-34) H D 04/24/18 20:22
[2018-04-25 03:26] LABS: BASO # 0.2 K/uL (0.0-0.2); BASO % 1.1 % (0.0-2.0); EOS % 0.1 % (0.0-4.0); HEMOGLOBIN 8.7 g/dL (11.0-16.0); LYMPH # 2.2 K/uL (1.0-4.3); LYMPH % 11.4 % (20.0-40.0); MEAN CELL VOLUME 84.1 fL (81.0-99.0); MEAN CORPUSCULAR HGB CONC 33.3 g/dL (33.0-37.0); MEAN PLATELET VOLUME 9.3 fL (7.2-11.7); MONO # 0.9 K/uL (0.0-0.8); MONO % 4.5 % (0.0-10.0); NEUT # 16.1 K/uL (1.8-7.0); NEUT % 82.9 % (50.0-75.0); RBC 3.11 Mil/uL (3.80-5.20); RED CELL DISTRIBUTION WIDTH 15.1 % (11.5-14.5); WHITE BLOOD COUNT 19.4 K/uL (4.8-10.8)
[2018-04-25 03:28] LABS: ALBUMIN 3.3 g/dL (3.5-5.0); CALCIUM 8.1 mg/dl (8.6-10.4)
--- NOTE | 2018-04-25 05:15 | PN ---
Copied To: Anthony Garrett MD Attending MD: Anthony Garrett MD DATE: 04/24/2018 FOLLOWUP RENAL CONSULTATION LOCATION: The patient is located in ICU, bed 16. REQUESTED BY: Dillan Menendez MD REASON FOR FOLLOWUP: Chronic kidney disease, stage 4. SUBJECTIVE: Mrs. Holland is a 77-year-old elderly female with a past medical history significant for longstanding hypertension, diabetes, coronary artery disease, status post CABG, status post stents, chronic kidney disease who was admitted for cardiac cath yesterday. The patient underwent cardiac cath, and subsequently, the patient was hypotensive after given antihypertensive medications. Subsequently, the patient was transferred to ICU for further management. The patient is not in acute distress. Denies any headache, dizziness. Denies any chest pain or palpitation. Denies any fever or cough. No abdominal pain. No nausea, vomiting, or diarrhea. PHYSICAL EXAMINATION: VITAL SIGNS: As follows: Blood pressure 120/62, pulse 78, respirations 19, temperature 98.6, saturation 97%. Height 5 feet 4 inches, weight is 187 pounds. GENERAL: Mrs. Holland is a 77-year-old elderly, very pleasant female, moderately built, moderately nourished, not in distress. HEENT: Pupils normal and reactive to light and accommodation. Conjunctivae pink. Sclerae anicteric. Tongue is moist. Trachea is midline. LUNGS: Symmetric on both sides. Bilateral breath sounds present. ABDOMEN: Normal in appearance, soft, tympanitic. No guarding. No rigidity. No hepatosplenomegaly. HEAD FILTER TANK TENDER HELPER: The patient is alert, awake, oriented x3. Nonfocal neuro examination. Cranial nerves II through XII grossly intact. Sensory and motor system is grossly within normal limits. EXTREMITIES: No cyanosis, no clubbing. Dorsalis pedis pulses are very feeble in both lower extremities. CURRENT MEDICATIONS: Include as follows: Ambien 5 mg at bedtime, hydralazine 50 mg p.o. every 8 hours, Crestor 10 mg at bedtime, aspirin 81 mg daily, IV heparin, also Lantus 10 units subcu at bedtime, Lasix 20 mg p.o. daily, metoprolol 25 mg p.o. b.i.d., Plavix 75 mg daily, Protonix 40 mg p.o. daily, Zofran 4 mg IV push every 4 hours p.r.n. LABORATORY DATA: Include as follows: As of 04/24/2018, WBC 14, hemoglobin 9.4, hematocrit is 28.2, platelets 238. PT 13.7 and PTT 91. Sodium 137, potassium 4.2, chloride 102, CO2 of 22, BUN 40, creatinine 2.4, glucose 231, calcium 8.2, phosphorus 3.6, magnesium 1.8. Total bili 0.3, AST 80, ALT 26, alkaline phosphatase 80, total protein 7.1, albumin is 3.1. Urinalysis, yellow, clear, pH 5, specific gravity 1.044, protein negative, glucose normal, ketones negative, blood negative, nitrites negative, bilirubin negative, urobilinogen normal, leukocyte esterase negative, wbc less than 1, rbc 1, squamous epithelial 1. ASSESSMENT AND PLAN: In summary, Mrs. Holland is a 77-year-old elderly female with history of hypertension, diabetes, hyperlipidemia, chronic kidney disease, coronary artery disease, status post coronary artery bypass graft, status post stents who was admitted from maintenance mechanic's office for cardiac cath. The patient underwent cardiac cath yesterday and became hypotensive after the procedure and was placed on dopamine and transferred to intensive care unit. 1. Chronic kidney disease 4, most likely secondary to hypertensive nephrosclerosis, cannot rule out secondary to diabetic nephropathy. 2. Hypertension. 3. Coronary artery disease. 4. Peripheral arterial disease. Continue all her current medications and follow up with Vascular Surgery and also Cardiology. Repeat labs in a.m., CBC, CMP. We will follow with you. Thank you for allowing me to participate in your patient's care. Anthony Garrett MD
[2018-04-25] MEDS: (Novolog) Insulin Aspart, Recombinant 100 u/ml 10 ml vial SC SCH ×4 (07:30→21:26)
--- NOTE | 2018-04-25 08:36 | PN ---
Copied To: Dillan Menendez MD Attending MD: Dillan Menendez MD DATE: 04/24/2018 SUBJECTIVE: The patient feels better. She denies nausea or vomiting now. She denies chest pain. She denies shortness of breath. PHYSICAL EXAMINATION: VITAL SIGNS: Blood pressure 122/62, pulse 78, respiratory rate 20, temperature 98.6. LUNGS: Positive basal rales. CVS: S1 and S2 pulse S3 positive. ABDOMEN: Soft. ASSESSMENT: 1. Coronary artery disease, status post angiogram. 2. Peripheral vascular disease. 3. Hypertension. 4. Type 2 diabetes. 5. Chronic kidney disease. PLAN: Medical management. Monitor the patient. Dillan Menendez MD
[2018-04-25] MEDS: Pantoprazole 40 mg EC Tab PO SCH (10:02)
[2018-04-25] MEDS: (Lantus) Insulin Glargine, Recombinant SC SCH (21:26)
--- NOTE | 2018-04-25 21:41 | PQF ---
PROVIDER RESPONSE TEXT: Chronic systolic heart failure REVIEWER QUERY TEXT: CHF Acuity and Type Congestive Heart Failure is documented in the Medical Record. Please document the type and acuity (in cludes probable or suspected) Such as: Type: -- Systolic -- Diastolic -- Combined -- Other, please specify Acuity: -- Acute -- Chronic -- Acute on chronic -- Other, please specify Also please document the underlying cause of the CHF (includes probable or suspected) The patient's Clinical Indicators include: ?77 year old female was sent to ER by Dr. Brewer for cardiac catheterization. Patient has Hx of valvula r surgery, bradycardia, and had an DE last month. Patient states she feels weak sometimes?. CHF documented in the chart. Patient had a Cardiac Cath where shows LVEF= 30% BNP: 2940 ECHO 03/29/18: Poor window. Mild to moderate Concnetric LVH with overall LVEF of 30-6-35%. Inferoapical appears markedly hypokinetic. CAD. Moderate to severe degree of LV diastolic dysfunction. Markedly increased la pressures. Please consider verify those clinical indicators where shows Moderate to severe degree of LV diastoli c dysfunction and LVEF of 30-35% (ECHO 03/2718) and 30% (Cardiac Cath 04/24/18). Query created by: Brown Lopes on 04/25/2018 5:15 PM Electronically signed by: Dillan Menendez MD 04/25/2018 9:38 PM
--- NOTE | 2018-04-25 22:47 | CP.PCM.PN ---
Objective - Vital Signs/Intake and Output Vital Signs (last 24 hours): Temp Pulse Resp BP Pulse Ox 97.4 F L 67 12 124/58 L 99 04/25/18 20:00 04/25/18 22:09 04/25/18 22:09 04/25/18 22:09 04/25/18 22:09 Intake and Output: 04/25/18 04/26/18 18:59 06:59 Intake Total 1152.4 335.4 Output Total 1200 800 Balance -47.6 -464.6 - Medications Medications: Current Medications Acetaminophen (Tylenol 325mg Tab) 650 mg PO Q6 PRN PRN Reason: Pain, moderate (4-7) Last Admin: 04/25/18 13:03 Dose: 650 mg Aspirin (Ecotrin) 81 mg PO DAILY [facility] Last Admin: 04/25/18 10:02 Dose: 81 mg Clopidogrel Bisulfate (Plavix) 75 mg PO DAILY [facility] Last Admin: 04/25/18 10:01 Dose: 75 mg Docusate Sodium (Colace) 100 mg PO TID [facility] Last Admin: 04/25/18 17:45 Dose: Not Given Furosemide (Lasix) 20 mg PO DAILY [facility] Last Admin: 04/25/18 10:02 Dose: 20 mg Hydralazine HCl (Apresoline) 50 mg PO Q8 [facility] Last Admin: 04/25/18 21:25 Dose: 50 mg Heparin Sodium/Sodium Chloride (Heparin 85710 Units/250ml 1/2 Normal Saline) 25 ,000 units in 250 mls @ 10.2 mls/hr IV .Q24H PRN; Protocol; 12 UNITS/KG/HR PRN Reason: ADJUST RATE PER PROTOCOL Last Titration: 04/24/18 13:45 Dose: 9 units/kg/hr, 7.65 mls/hr Insulin Aspart (Novolog) 0 unit SC ACHS [facility] PRN Reason: Protocol Last Admin: 04/25/18 21:26 Dose: 2 u Insulin Glargine (Lantus) 10 unit SC HS [facility] Last Admin: 04/25/18 21:26 Dose: 10 units Metoprolol Tartrate (Lopressor) 25 mg PO BID [facility] Last Admin: 04/25/18 17:45 Dose: 25 mg Ondansetron HCl (Zofran Inj) 4 mg IVP Q4H PRN PRN Reason: Nausea/Vomiting Pantoprazole Sodium (Protonix Ec Tab) 40 mg PO DAILY [facility] Last Admin: 04/25/18 10:02 Dose: 40 mg Rosuvastatin Calcium (Crestor) 10 mg PO HS [facility] Last Admin: 04/25/18 21:25 Dose: 10 mg Zolpidem Tartrate (Ambien) 5 mg PO HS PRN PRN Reason: Insomnia Last Admin: 04/25/18 21:26 Dose: 5 mg - Labs Labs: 04/25/18 03:01 04/25/18 03:01 PT 13.7 SECONDS (9.7-12.2) H 04/24/18 06:14 INR 1.3 04/24/18 06:14 APTT 79 SECONDS (21-34) H D 04/25/18 03:01
--- NOTE | 2018-04-25 22:58 | CP.PCM.PN ---
Subjective - Date & Time of Evaluation Date of Evaluation: 04/25/18 Time of Evaluation: 16:20 - Subjective Subjective: Patient seen and evaluated Vascular consult pending for PAD Objective - Vital Signs/Intake and Output Vital Signs (last 24 hours): Temp Pulse Resp BP Pulse Ox 97.4 F L 67 12 124/58 L 99 04/25/18 20:00 04/25/18 22:09 04/25/18 22:09 04/25/18 22:09 04/25/18 22:09 Intake and Output: 04/25/18 04/26/18 18:59 06:59 Intake Total 1152.4 335.4 Output Total 1200 800 Balance -47.6 -464.6 - Medications Medications: Current Medications Acetaminophen (Tylenol 325mg Tab) 650 mg PO Q6 PRN PRN Reason: Pain, moderate (4-7) Last Admin: 04/25/18 13:03 Dose: 650 mg Aspirin (Ecotrin) 81 mg PO DAILY [facility] Last Admin: 04/25/18 10:02 Dose: 81 mg Clopidogrel Bisulfate (Plavix) 75 mg PO DAILY [facility] Last Admin: 04/25/18 10:01 Dose: 75 mg Docusate Sodium (Colace) 100 mg PO TID [facility] Last Admin: 04/25/18 17:45 Dose: Not Given Furosemide (Lasix) 20 mg PO DAILY [facility] Last Admin: 04/25/18 10:02 Dose: 20 mg Hydralazine HCl (Apresoline) 50 mg PO Q8 [facility] Last Admin: 04/25/18 21:25 Dose: 50 mg Heparin Sodium/Sodium Chloride (Heparin 87675 Units/250ml 1/2 Normal Saline) 25 ,000 units in 250 mls @ 10.2 mls/hr IV .Q24H PRN; Protocol; 12 UNITS/KG/HR PRN Reason: ADJUST RATE PER PROTOCOL Last Titration: 04/24/18 13:45 Dose: 9 units/kg/hr, 7.65 mls/hr Insulin Aspart (Novolog) 0 unit SC ACHS [facility] PRN Reason: Protocol Last Admin: 04/25/18 21:26 Dose: 2 u Insulin Glargine (Lantus) 10 unit SC HS [facility] Last Admin: 04/25/18 21:26 Dose: 10 units Metoprolol Tartrate (Lopressor) 25 mg PO BID [facility] Last Admin: 04/25/18 17:45 Dose: 25 mg Ondansetron HCl (Zofran Inj) 4 mg IVP Q4H PRN PRN Reason: Nausea/Vomiting Pantoprazole Sodium (Protonix Ec Tab) 40 mg PO DAILY [facility] Last Admin: 04/25/18 10:02 Dose: 40 mg Rosuvastatin Calcium (Crestor) 10 mg PO HS [facility] Last Admin: 04/25/18 21:25 Dose: 10 mg Zolpidem Tartrate (Ambien) 5 mg PO HS PRN PRN Reason: Insomnia Last Admin: 04/25/18 21:26 Dose: 5 mg - Labs Labs: 04/25/18 03:01 04/25/18 03:01 PT 13.7 SECONDS (9.7-12.2) H 04/24/18 06:14 INR 1.3 04/24/18 06:14 APTT 79 SECONDS (21-34) H D 04/25/18 03:01
--- NOTE | 2018-04-25 23:12 | CP.PCM.PN ---
Subjective - Date & Time of Evaluation Date of Evaluation: 04/25/18 Time of Evaluation: 20:15 - Subjective Subjective: follow up consult is dictated #[id number] Objective - Vital Signs/Intake and Output Vital Signs (last 24 hours): Temp Pulse Resp BP Pulse Ox 97.4 F L 67 12 124/58 L 99 04/25/18 20:00 04/25/18 22:09 04/25/18 22:09 04/25/18 22:09 04/25/18 22:09 Intake and Output: 04/25/18 04/26/18 18:59 06:59 Intake Total 1152.4 335.4 Output Total 1200 800 Balance -47.6 -464.6 - Medications Medications: Current Medications Acetaminophen (Tylenol 325mg Tab) 650 mg PO Q6 PRN PRN Reason: Pain, moderate (4-7) Last Admin: 04/25/18 13:03 Dose: 650 mg Aspirin (Ecotrin) 81 mg PO DAILY [facility] Last Admin: 04/25/18 10:02 Dose: 81 mg Clopidogrel Bisulfate (Plavix) 75 mg PO DAILY [facility] Last Admin: 04/25/18 10:01 Dose: 75 mg Docusate Sodium (Colace) 100 mg PO TID [facility] Last Admin: 04/25/18 17:45 Dose: Not Given Furosemide (Lasix) 20 mg PO DAILY [facility] Last Admin: 04/25/18 10:02 Dose: 20 mg Hydralazine HCl (Apresoline) 50 mg PO Q8 [facility] Last Admin: 04/25/18 21:25 Dose: 50 mg Heparin Sodium/Sodium Chloride (Heparin 12828 Units/250ml 1/2 Normal Saline) 25 ,000 units in 250 mls @ 10.2 mls/hr IV .Q24H PRN; Protocol; 12 UNITS/KG/HR PRN Reason: ADJUST RATE PER PROTOCOL Last Titration: 04/24/18 13:45 Dose: 9 units/kg/hr, 7.65 mls/hr Insulin Aspart (Novolog) 0 unit SC ACHS [facility] PRN Reason: Protocol Last Admin: 04/25/18 21:26 Dose: 2 u Insulin Glargine (Lantus) 10 unit SC HS [facility] Last Admin: 04/25/18 21:26 Dose: 10 units Metoprolol Tartrate (Lopressor) 25 mg PO BID [facility] Last Admin: 04/25/18 17:45 Dose: 25 mg Ondansetron HCl (Zofran Inj) 4 mg IVP Q4H PRN PRN Reason: Nausea/Vomiting Pantoprazole Sodium (Protonix Ec Tab) 40 mg PO DAILY [facility] Last Admin: 04/25/18 10:02 Dose: 40 mg Rosuvastatin Calcium (Crestor) 10 mg PO HS [facility] Last Admin: 04/25/18 21:25 Dose: 10 mg Zolpidem Tartrate (Ambien) 5 mg PO HS PRN PRN Reason: Insomnia Last Admin: 04/25/18 21:26 Dose: 5 mg - Labs Labs: 04/25/18 03:01 04/25/18 03:01 PT 13.7 SECONDS (9.7-12.2) H 04/24/18 06:14 INR 1.3 04/24/18 06:14 APTT 79 SECONDS (21-34) H D 04/25/18 03:01
[2018-04-26] MEDS: Heparin25000 units/250ml 1/2NS 25,000 UNITS/250 ML BAG IV PRN (00:30)
--- NOTE | 2018-04-26 04:41 | PN ---
Copied To: Anthony Garrett MD Attending MD: Anthony Garrett MD DATE: 04/25/2018 FOLLOWUP RENAL CONSULTATION LOCATION: The patient is located in ICU, room 16. REQUESTED BY: Dillan Menendez MD. REASON FOR FOLLOWUP: Chronic kidney disease stage 4. HISTORY OF PRESENT ILLNESS: Mrs. Holland is a 77-year-old elderly female with a past medical history significant for longstanding hypertension, diabetes, coronary artery disease, status post CABG, status post stents and unilateral small kidney CKD 4 who was admitted for cardiac cath. The patient underwent cardiac cath and does not require any intervention at this time. Medical management was recommended but patient was found to have severe peripheral vascular disease. The patient is on IV heparin at this time. Denies any chest pain or palpitation. Denies any fever or cough. No abdominal pain. No nausea, vomiting, diarrhea. PHYSICAL EXAMINATION: VITAL SIGNS: As follows: Blood pressure 124/58, pulse 67, respirations 12, temperature 97.4, saturation is 99%. Height 5 feet 4 inches, weight is 187 pounds. GENERAL: Mrs. Holland is a 77-year-old elderly female, moderately built, moderately nourished, not in distress. HEENT: Pupils normal and reactive to light and accommodation. Conjunctivae pink. Sclerae anicteric. Tongue is moist. Trachea is midline. LUNGS: Symmetric on both sides. Bilateral breath sounds present. Clear to auscultation on the left side. The patient has basal crackles on the right. CVS: [place] at the fifth intercostal space, midclavicular line. S1, S2 audible. No murmur or gallop. ABDOMEN: Normal in appearance. Soft, tympanic. No guarding. No rigidity. No hepatosplenomegaly. CHICKEN CUTTER: The patient is alert, awake, oriented x3. Nonfocal neuro examination. Cranial nerves II through XII grossly intact. Sensory and motor system is within normal limits. EXTREMITIES: No cyanosis, no clubbing, no edema. Dorsalis pedis pulses are not palpable manually. MEDICATIONS: Her current medications include as follows: Ambien 5 mg at bedtime; hydralazine 50 mg p.o. every 8 hours; Colace 100 mg p.o. t.i.d.; Crestor 10 mg at bedtime; aspirin 81 mg daily; heparin 12 units per kg per hour; Lantus 10 units subcu at bedtime; metoprolol 25 mg p.o. b.i.d.; NovoLog insulin; Plavix 75 mg daily; Protonix 40 mg p.o. daily; Tylenol; Zofran 4 mg IV every 4 hours p.r.n. LABORATORY DATA: Her current lab data include as follows: As of 04/25/2018, WBC 19.4, hemoglobin 8.7, hematocrit is 26.2, platelets 211. PTT 86 and 79. Sodium 136, potassium 3.9, chloride 104, CO2 of 23, BUN 49, creatinine 2.7, glucose is 144, calcium 8.1, phosphorus 3.7, magnesium 1.9. Total bili 0.3, AST , ALT 37, alkaline phosphatase 62, total protein 6.7, albumin 3.3. Accu-Cheks 141, 86, and 141. Other laboratory data: MRSA screening is negative, and blood culture x2 negative, and urine culture is negative. Renal ultrasound report as of 04/03/2018, right kidney is 9.6 cm and left kidney is 8.2 cm. IMPRESSION: In summary, Mrs. Holland is a 77-year-old elderly female with a past medical history significant for longstanding hypertension, diabetes, coronary artery disease, status post coronary artery bypass graft with a peripheral vascular disease, status post cardiac cath 2 days ago, and found to have peripheral vascular disease, on IV heparin with increased BUN and creatinine slightly today. 1. Acute renal failure on chronic kidney disease, cannot rule out contrast-induced nephropathy. 2. Unilateral small kidney, cannot rule out renovascular disease secondary to atherosclerosis and advanced age. 3. Hypertension. 4. Diabetes. 5. Peripheral arterial disease. Continue IV heparin as per Cardiology. Follow with Vascular Surgery. Repeat BMP in a.m. We will follow with you. Thank you for allowing me to participate in your patient's care. We will check PTH and phosphorus and BMP in a.m. Anthony Garrett MD
[2018-04-26 06:51] LABS: SQUAMOUS EPITHIAL 2 /hpf (0-5); URINE BACTERIA RARE (<OCC); URINE BILIRUBIN NEGATIVE (NEGATIVE); URINE BLOOD NEGATIVE (NEGATIVE); URINE CLARITY Clear (Clear); URINE COLOR Straw (YELLOW); URINE GLUCOSE (UA) NORMAL (Normal); URINE LEUKOCYTE ESTERASE NEG Leu/uL (Negative); URINE PROTEIN NEGATIVE (NEGATIVE); URINE UROBILINOGEN NORMAL mg/dL (0.2-1.0)
[2018-04-26] MEDS: (Novolog) Insulin Aspart, Recombinant 100 u/ml 10 ml vial SC SCH ×4 (08:45→21:58)
--- NOTE | 2018-04-26 09:35 | PN ---
Copied To: Dillan Menendez MD Attending MD: Dillan Menendez MD DATE: 04/25/2018 SUBJECTIVE: The patient is with leukocytosis 19.4. She has a therapeutic PTT. The patient is afebrile. She has decreased nausea, vomiting. She had ____ last night. Blood sugars are relatively well controlled. PHYSICAL EXAMINATION: VITAL SIGNS: Blood pressure 124/58, pulse 67, respiratory rate 17, temperature 98.4. LUNGS: Bilateral basal crepitations. CVS: S1, S2 plus S3 positive. ABDOMEN: Soft and nontender. Bowel sounds are positive. ASSESSMENT: 1. Coronary artery disease, on heparin drip. 2. Congestive heart failure. 3. Resolved nausea, vomiting. 4. Hypertension. 5. Hyperlipidemia. PLAN: Continue heparin and monitor WBC count. Monitor the patient closely. If spikes, salcido culture. Dillan Menendez MD
[2018-04-26] MEDS: Pantoprazole 40 mg EC Tab PO SCH (09:41)
--- NOTE | 2018-04-26 13:13 | PN ---
Copied To: Rosalino Schaefer MD Attending MD: Rosalino Schaefer MD DATE: 04/26/2018 LOCATION: 660, bed A. SUBJECTIVE: This is a 77-year-old female seen initially for GI consultation on 04/25/2018 as requested by the admitting MD in the intensive care unit in the presence of her family, reexamined again early today in the presence of her daughter as well as the staff in the floor. Denied any significant shortness of breath, abdominal pain, palpitation, chills or fever, had large bowel movement last night after which she had relief of her abdominal pain. The patient since the admission had periods of bradycardia, but no reported active GI bleeding. The entire chart is reviewed including but not limited to the most recent lab and the radiology study results, current and the previous medication list, current and the previous medical events. The patient is still complaining of lower extremities/toes discoloration as well as discoloration of the skin around the ankle area despite pulses are positive by Doppler study. No lower extremities pain. Most recent lab result showed PTT of 54 with blood glucose level of 231 with leukocytosis of 19.4, hemoglobin 8.4, hematocrit 26.2 with BUN of 49, creatinine 2.7 with calcium 8.1, AST 228, and albumin 330. PHYSICAL EXAMINATION: GENERAL: A 77-year-old female, awake, alert, and oriented. VITAL SIGNS: Afebrile with pulse of 60, respiratory rate of 20 to 22, blood pressure of 122/70. HEENT: Showed pale, dry oral mucous membrane. Nonicteric sclerae. LUNGS: Few scattered crepitation. Decreased air entry at bases. HEART: Positive S1 and S2. ABDOMEN: Soft with mild generalized tenderness with slight distention. No masses or organomegaly. Bowel sounds are present. EXTREMITIES: With discoloration of the distal lower extremities portions, nontender. COPY WRITER: No reported new neurological deficits, sensory, or motor. IMPRESSION: 1. Anemia, but reported to have guaiac-negative stool. The possibility of anemia secondary to chronic disease versus gastrointestinal blood loss was raised. 2. Rule out occult gastrointestinal malignancy. 3. Hypertension, congestive heart failure, coronary artery disease, status post coronary artery bypass graft by history. 4. History of myocardial infarction before with cardiac valvular surgery. 5. Status post cholecystectomy by history. 6. Discoloration of the lower extremities. The possibility of fat emboli was raised. SUGGESTIONS: 1. Agree with your plan. 2. Colace one tablet three times a day. 3. Proton pump inhibitors. 4. tab one twice a day. 5. The patient for vascular surgical evaluation. Further recommendation to follow. Rosalino Schaefer MD
[2018-04-26 14:28] LABS: MEAN CELL VOLUME 84.2 fL (81.0-99.0); MEAN CORPUSCULAR HGB CONC 33.3 g/dL (33.0-37.0); MEAN PLATELET VOLUME 9.9 fL (7.2-11.7); RBC 3.22 Mil/uL (3.80-5.20)
[2018-04-26 14:47] LABS: CALCIUM 8.5 mg/dl (8.6-10.4)
--- NOTE | 2018-04-26 14:48 | CP.PCM.PN ---
<Dottie Taylor - Last Filed: 04/26/18 15:55> Subjective - Date & Time of Evaluation Date of Evaluation: 04/26/18 Time of Evaluation: 14:47 - Subjective Subjective: Cardiology Progress Note - Dr Brewer Patient seen and examined at bedside. Per nursing no acute events overnight. Patient states that she is having an upset stomach. Was able to tolerate food today. Denies any nausea, vomiting, chest pain or dyspnea. Objective - Vital Signs/Intake and Output Vital Signs (last 24 hours): Temp Pulse Resp BP Pulse Ox 98.0 F 63 68 H 112/64 100 04/26/18 07:15 04/26/18 12:24 04/26/18 09:45 04/26/18 09:45 04/26/18 07:15 Intake and Output: 04/26/18 04/26/18 06:59 18:59 Intake Total 335.4 Output Total 800 Balance -464.6 - Medications Medications: Current Medications Acetaminophen (Tylenol 325mg Tab) 650 mg PO Q6 PRN PRN Reason: Pain, moderate (4-7) Last Admin: 04/25/18 13:03 Dose: 650 mg Aspirin (Ecotrin) 81 mg PO DAILY [facility] Last Admin: 04/26/18 09:41 Dose: 81 mg Clopidogrel Bisulfate (Plavix) 75 mg PO DAILY [facility] Last Admin: 04/26/18 09:41 Dose: 75 mg Docusate Sodium (Colace) 100 mg PO TID [facility] Last Admin: 04/26/18 13:55 Dose: 100 mg Furosemide (Lasix) 20 mg PO DAILY [facility] Last Admin: 04/26/18 09:41 Dose: 20 mg Hydralazine HCl (Apresoline) 50 mg PO Q8 [facility] Last Admin: 04/26/18 13:55 Dose: 50 mg Heparin Sodium/Sodium Chloride (Heparin 30189 Units/250ml 1/2 Normal Saline) 25 ,000 units in 250 mls @ 10.2 mls/hr IV .Q24H PRN; Protocol; 12 UNITS/KG/HR PRN Reason: ADJUST RATE PER PROTOCOL Last Admin: 04/26/18 00:30 Dose: 9 units/kg/hr, 7.65 mls/hr Insulin Aspart (Novolog) 0 unit SC ACHS [facility] PRN Reason: Protocol Last Admin: 08/24/18 12:33 Dose: 1 u Insulin Glargine (Lantus) 10 unit SC HS [facility] Last Admin: 04/25/18 21:26 Dose: 10 units Metoprolol Tartrate (Lopressor) 25 mg PO BID [facility] Last Admin: 04/26/18 09:41 Dose: 25 mg Ondansetron HCl (Zofran Inj) 4 mg IVP Q4H PRN PRN Reason: Nausea/Vomiting Pantoprazole Sodium (Protonix Ec Tab) 40 mg PO DAILY [facility] Last Admin: 04/26/18 09:41 Dose: 40 mg Rosuvastatin Calcium (Crestor) 10 mg PO HS [facility] Last Admin: 04/25/18 21:25 Dose: 10 mg Zolpidem Tartrate (Ambien) 5 mg PO HS PRN PRN Reason: Insomnia Last Admin: 04/25/18 21:26 Dose: 5 mg - Labs Labs: 04/26/18 14:15 04/25/18 03:01 PT 13.7 SECONDS (9.7-12.2) H 04/24/18 06:14 INR 1.3 04/24/18 06:14 APTT 54 SECONDS (21-34) H D 04/26/18 06:40 - Constitutional Appears: Well, No Acute Distress - Head Exam Head Exam: ATRAUMATIC, NORMAL INSPECTION - Eye Exam Eye Exam: EOMI - ENT Exam ENT Exam: Mucous Membranes Moist - Respiratory Exam Respiratory Exam: NORMAL BREATHING PATTERN - Cardiovascular Exam Cardiovascular Exam: REGULAR RHYTHM, +S1, +S2 - GI/Abdominal Exam GI & Abdominal Exam: Distended, Soft. absent: Tenderness - Extremities Exam Extremities Exam: absent: Calf Tenderness Additional comments: pedal pulses dopplerable - Neurological Exam Neurological Exam: Alert, Awake - Psychiatric Exam Psychiatric exam: Normal Affect, Normal Mood - Skin Skin Exam: Dry Assessment and Plan - Assessment and Plan (Free Text) Assessment: A/P: Patient is a 77 year old female with past medical history of CAD, CABG x 2 , HTN, Hyperlipidemia, Peripheral arterial disease, CKD who is s/p cardiac cath Severe PAD with Critical limb ischemia -Critical limb ischemia. Potential for limb loss without intervention. Vascular on case -Continue Heparin drip -Vascular on consult, help appreciated Hx of CAD/Systolic and Diastolic CHF -Patient s/p s/p LHC/Coronary angiogram/Graft angiogram/Abdominal aortogram -Showed L Main: patent, LAD: Mid 90-95% (STAHL to LAD patent), L Cx: 100%, SVG to OM Likely occluded, RCA: Proximal 100% (SVG to RCA patent), LVEDP: -20, Mild gradient across Aortic valve, Abdominal Aortogram: Severe b/l Iliiac disease, Right CI 95% ostial stenosis -Patient became hypotensive post cath requiring pressors likely due to sedation -Off pressors, downgraded to telemetry -Patient has adequate coronary flow for her lifestyle. No coronary intervention needed -Last echo 03/2018 showed EF 30-35%, Moderate LV diastolic dysfunction -Continue ASA 81mg PO daily and Plavix 75mg PO daily -Metoprolol 25mg PO BID, Lasix 20mg PO daily, Crestor 10mg PO HS Diabetes Mellitus -Lantus 10 units HS -Insulin sliding scale -Accuchecks Hypertension -Continue Hydralazine 50mg PO Q8H -Metoprolol 25mg PO BID CKD -Neprho on consult Plan discussed with Dr Osman Taylor DO PGY-2 <eKnny Brewer - Last Filed: 04/27/18 08:48> Objective - Vital Signs/Intake and Output Vital Signs (last 24 hours): Temp Pulse Resp BP Pulse Ox 98.5 F 58 L 18 108/67 100 04/26/18 23:50 04/27/18 06:48 04/27/18 06:48 04/27/18 06:48 04/26/18 23:50 Intake and Output: 04/27/18 04/27/18 06:59 18:59 Intake Total 311.6 Balance 311.6 - Medications Medications: Current Medications Acetaminophen (Tylenol 325mg Tab) 650 mg PO Q6 PRN PRN Reason: Pain, moderate (4-7) Last Admin: 04/25/18 13:03 Dose: 650 mg Al Hydrox/Mg Hydrox/Simethicone (Maalox Plus 30 Ml) 15 ml PO TID PRN PRN Reason: Indigestion / Heartburn Last Admin: 04/26/18 21:58 Dose: 15 ml Aspirin (Ecotrin) 81 mg PO DAILY [facility] Last Admin: 04/26/18 09:41 Dose: 81 mg Clopidogrel Bisulfate (Plavix) 75 mg PO DAILY [facility] Last Admin: 04/26/18 09:41 Dose: 75 mg Docusate Sodium (Colace) 100 mg PO TID [facility] Last Admin: 04/26/18 17:55 Dose: 100 mg Furosemide (Lasix) 20 mg PO DAILY [facility] Last Admin: 04/26/18 09:41 Dose: 20 mg Hydralazine HCl (Apresoline) 50 mg PO Q8 [facility] Last Admin: 04/27/18 06:47 Dose: Not Given Heparin Sodium/Sodium Chloride (Heparin 27506 Units/250ml 1/2 Normal Saline) 25 ,000 units in 250 mls @ 10.2 mls/hr IV .Q24H PRN; Protocol; 12 UNITS/KG/HR PRN Reason: ADJUST RATE PER PROTOCOL Last Admin: 04/26/18 00:30 Dose: 9 units/kg/hr, 7.65 mls/hr Insulin Aspart (Novolog) 0 unit SC ACHS [facility] PRN Reason: Protocol Last Admin: 04/27/18 07:57 Dose: Not Given Insulin Glargine (Lantus) 10 unit SC HS [facility] Last Admin: 04/26/18 21:57 Dose: 10 units Metoprolol Tartrate (Lopressor) 25 mg PO BID [facility] Last Admin: 04/26/18 17:54 Dose: 25 mg Ondansetron HCl (Zofran Inj) 4 mg IVP Q4H PRN PRN Reason: Nausea/Vomiting Pantoprazole Sodium (Protonix Ec Tab) 40 mg PO DAILY [facility] Last Admin: 04/26/18 09:41 Dose: 40 mg Rosuvastatin Calcium (Crestor) 10 mg PO HS [facility] Last Admin: 04/26/18 21:57 Dose: 10 mg Zolpidem Tartrate (Ambien) 5 mg PO HS PRN PRN Reason: Insomnia Last Admin: 04/26/18 21:56 Dose: 5 mg - Labs Labs: 04/26/18 14:15 04/27/18 06:46 PT 13.5 SECONDS (9.7-12.2) H 04/27/18 08:06 INR 1.2 04/27/18 08:06 APTT 53 SECONDS (21-34) H 04/27/18 08:06 Assessment and Plan - Assessment and Plan (Free Text) Assessment: Patient seen and evaluated personally Plan of care d/w the medical asst and as documented
--- NOTE | 2018-04-26 19:24 | CP.PCM.PN ---
Subjective - Date & Time of Evaluation Date of Evaluation: 04/26/18 Time of Evaluation: 19:23 - Subjective Subjective: pt is seen and examined, follow up consult is dictated #[id number] increase lasix to 20 mg po bid to 40 mg po bid if needed Objective - Vital Signs/Intake and Output Vital Signs (last 24 hours): Temp Pulse Resp BP Pulse Ox 97.7 F 63 20 120/76 100 04/26/18 15:00 04/26/18 15:00 04/26/18 15:00 04/26/18 17:54 04/26/18 15:00 Intake and Output: 04/26/18 04/27/18 18:59 06:59 Intake Total 480 Balance 480 - Medications Medications: Current Medications Acetaminophen (Tylenol 325mg Tab) 650 mg PO Q6 PRN PRN Reason: Pain, moderate (4-7) Last Admin: 04/25/18 13:03 Dose: 650 mg Aspirin (Ecotrin) 81 mg PO DAILY [facility] Last Admin: 04/26/18 09:41 Dose: 81 mg Clopidogrel Bisulfate (Plavix) 75 mg PO DAILY [facility] Last Admin: 04/26/18 09:41 Dose: 75 mg Docusate Sodium (Colace) 100 mg PO TID [facility] Last Admin: 04/26/18 17:55 Dose: 100 mg Furosemide (Lasix) 20 mg PO DAILY [facility] Last Admin: 04/26/18 09:41 Dose: 20 mg Hydralazine HCl (Apresoline) 50 mg PO Q8 [facility] Last Admin: 04/26/18 13:55 Dose: 50 mg Heparin Sodium/Sodium Chloride (Heparin 11791 Units/250ml 1/2 Normal Saline) 25 ,000 units in 250 mls @ 10.2 mls/hr IV .Q24H PRN; Protocol; 12 UNITS/KG/HR PRN Reason: ADJUST RATE PER PROTOCOL Last Admin: 04/26/18 00:30 Dose: 9 units/kg/hr, 7.65 mls/hr Insulin Aspart (Novolog) 0 unit SC ACHS [facility] PRN Reason: Protocol Last Admin: 04/26/18 17:53 Dose: Not Given Insulin Glargine (Lantus) 10 unit SC HS [facility] Last Admin: 04/25/18 21:26 Dose: 10 units Metoprolol Tartrate (Lopressor) 25 mg PO BID [facility] Last Admin: 04/26/18 17:54 Dose: 25 mg Ondansetron HCl (Zofran Inj) 4 mg IVP Q4H PRN PRN Reason: Nausea/Vomiting Pantoprazole Sodium (Protonix Ec Tab) 40 mg PO DAILY [facility] Last Admin: 04/26/18 09:41 Dose: 40 mg Rosuvastatin Calcium (Crestor) 10 mg PO HS [facility] Last Admin: 04/25/18 21:25 Dose: 10 mg Zolpidem Tartrate (Ambien) 5 mg PO HS PRN PRN Reason: Insomnia Last Admin: 04/25/18 21:26 Dose: 5 mg - Labs Labs: 04/26/18 14:15 04/26/18 14:15 PT 13.7 SECONDS (9.7-12.2) H 04/24/18 06:14 INR 1.3 04/24/18 06:14 APTT 54 SECONDS (21-34) H D 04/26/18 06:40
[2018-04-26] MEDS ORDERED: Alum-Mag Hydrox-Simethicone Susp (30 mL) PO PRN (21:22)
[2018-04-26] MEDS: (Lantus) Insulin Glargine, Recombinant SC SCH (21:57)
--- NOTE | 2018-04-26 23:43 | CP.PCM.PN ---
Objective - Vital Signs/Intake and Output Vital Signs (last 24 hours): Temp Pulse Resp BP Pulse Ox 98 F 66 20 104/64 99 04/26/18 21:52 04/26/18 21:52 04/26/18 21:52 04/26/18 21:52 04/26/18 21:52 Intake and Output: 04/26/18 04/27/18 18:59 06:59 Intake Total 480 Balance 480 - Medications Medications: Current Medications Acetaminophen (Tylenol 325mg Tab) 650 mg PO Q6 PRN PRN Reason: Pain, moderate (4-7) Last Admin: 04/25/18 13:03 Dose: 650 mg Al Hydrox/Mg Hydrox/Simethicone (Maalox Plus 30 Ml) 15 ml PO TID PRN PRN Reason: Indigestion / Heartburn Last Admin: 04/26/18 21:58 Dose: 15 ml Aspirin (Ecotrin) 81 mg PO DAILY [facility] Last Admin: 04/26/18 09:41 Dose: 81 mg Clopidogrel Bisulfate (Plavix) 75 mg PO DAILY [facility] Last Admin: 04/26/18 09:41 Dose: 75 mg Docusate Sodium (Colace) 100 mg PO TID [facility] Last Admin: 04/26/18 17:55 Dose: 100 mg Furosemide (Lasix) 20 mg PO DAILY [facility] Last Admin: 04/26/18 09:41 Dose: 20 mg Hydralazine HCl (Apresoline) 50 mg PO Q8 [facility] Last Admin: 04/26/18 21:57 Dose: Not Given Heparin Sodium/Sodium Chloride (Heparin 77600 Units/250ml 1/2 Normal Saline) 25 ,000 units in 250 mls @ 10.2 mls/hr IV .Q24H PRN; Protocol; 12 UNITS/KG/HR PRN Reason: ADJUST RATE PER PROTOCOL Last Admin: 04/26/18 00:30 Dose: 9 units/kg/hr, 7.65 mls/hr Insulin Aspart (Novolog) 0 unit SC ACHS [facility] PRN Reason: Protocol Last Admin: 04/26/18 21:58 Dose: Not Given Insulin Glargine (Lantus) 10 unit SC HS [facility] Last Admin: 04/26/18 21:57 Dose: 10 units Metoprolol Tartrate (Lopressor) 25 mg PO BID [facility] Last Admin: 04/26/18 17:54 Dose: 25 mg Ondansetron HCl (Zofran Inj) 4 mg IVP Q4H PRN PRN Reason: Nausea/Vomiting Pantoprazole Sodium (Protonix Ec Tab) 40 mg PO DAILY [facility] Last Admin: 04/26/18 09:41 Dose: 40 mg Rosuvastatin Calcium (Crestor) 10 mg PO HS [facility] Last Admin: 04/26/18 21:57 Dose: 10 mg Zolpidem Tartrate (Ambien) 5 mg PO HS PRN PRN Reason: Insomnia Last Admin: 04/26/18 21:56 Dose: 5 mg - Labs Labs: 04/26/18 14:15 04/26/18 14:15 PT 13.7 SECONDS (9.7-12.2) H 04/24/18 06:14 INR 1.3 04/24/18 06:14 APTT 54 SECONDS (21-34) H D 04/26/18 06:40
--- NOTE | 2018-04-27 03:22 | PN ---
Copied To: Anthony Garrett MD Attending MD: Anthony Garrett MD DATE: 04/26/2018 FOLLOWUP RENAL CONSULTATION LOCATION: The patient is located in room 660, bed A. REQUESTED BY: Dillan Menendez MD REASON FOR FOLLOWUP: Chronic kidney disease, CKD 4. SUBJECTIVE: Mrs. Holland is a 77-year-old elderly female from [facility] with a history of hypertension, diabetes, chronic kidney disease, status post CABG, status post stent placement who was admitted for cardiac cath placement and for shortness of breath. The patient was found to have a patent graft and recommending medical management. The patient was also found to have peripheral arterial disease. The patient is not in acute distress. Denies any chest pain. The patient still complains of mild shortness of breath. PHYSICAL EXAMINATION: VITAL SIGNS: As follows: Blood pressure 120/76, pulse 63, respirations 20, temperature 97.7, saturation 100%. Height 5 feet 4 inches, and weight is 193 pounds. GENERAL: Mrs. Holland is a 77-year-old elderly female, moderately built, moderately nourished, not in distress. HEENT: Pupils normal and reactive to light and accommodation. Conjunctivae pink. Sclerae anicteric. Tongue is moist and trachea is midline. LUNGS: Symmetric on both sides. Bilateral breath sounds present. Clear to auscultation. CARDIOVASCULAR SYSTEM: [place] at the fifth intercostal space, midclavicular line. S1, S2 audible. No murmur or gallop. ABDOMEN: The patient also has a midsternal scar present from the previous CABG. Abdomen, normal in appearance. Soft, tympanitic. No guarding. No rigidity. No hepatosplenomegaly. CENTRAL NERVOUS SYSTEM: The patient is alert, awake, oriented x3. Nonfocal neuro examination. Cranial nerves II-XII grossly intact. Sensory and motor system is grossly within normal limits. EXTREMITIES: No cyanosis, no clubbing. Dorsalis pedis pulses are feeble. Both legs are warm to touch. CURRENT MEDICATIONS: Include as follows: Ambien 5 mg at bedtime, hydralazine 50 mg p.o. every 8 hours, Colace 100 mg p.o. t.i.d., Crestor 10 mg p.o. at bedtime, aspirin 81 mg daily, IV heparin at 12 units/kg per hour, Lantus 10 units subcu at bedtime, Lasix 20 mg p.o. daily, Lopressor 25 mg p.o. b.i.d., Plavix 75 mg daily, Protonix 40 mg p.o. daily, Tylenol, and Zofran. CURRENT LABORATORY DATA: Include as follows as of 04/26/2018: WBC 14, hemoglobin 9, hematocrit is 27.1, platelets 216. Sodium 135, potassium 3.7, chloride 102, CO2 of 23, BUN 47, creatinine 2.4, glucose 141, calcium 8.5. Urinalysis: Straw color, clear, pH of 5, specific gravity 1.009, protein negative, glucose negative, ketone negative, blood negative, nitrites negative, bilirubin negative, urobilinogen normal, leukocyte esterase negative, wbc less than 1, rbc 1, bacteria rare. Blood culture x2 negative on 04/23/2018 day-2, and the urine culture was negative. MRSA screening was negative. ASSESSMENT AND PLAN: In summary, Mrs. Holland is about a 77-year-old elderly female with hypertension, diabetes, coronary artery disease, status post coronary artery bypass grafting, unilateral small left kidney, increased blood urea nitrogen and creatinine, low hemoglobin and hematocrit and peripheral arterial disease. 1. Chronic kidney disease 4, most likely secondary to hypertensive nephrosclerosis, cannot rule out underlying renovascular disease secondary to atherosclerosis and peripheral vascular disease. 2. Anemia secondary to chronic kidney disease. We add Nephrocaps or Nephro-Teresa one tablet by mouth daily. We will also check iron, total iron-binding capacity, and ferritin level. 3. Congestive heart failure. 4. Hypertension. Blood pressure is stable. Continue hydralazine and metoprolol. 5. Peripheral arterial disease. Continue heparin as per Cardiology and continue aspirin, Crestor and Plavix. Also continue gastrointestinal prophylaxis Protonix 40 mg p.o. daily,and we will increase the Lasix to 20 mg p.o. b.i.d. The patient may need 40 mg b.i.d. if continued to have persistent congestive heart failure. Thank you for allowing me to participate in your patient's care. Anthony Garrett MD [facility] # [id number]
[2018-04-27 07:19] LABS: CALCIUM 8.2 mg/dl (8.6-10.4)
[2018-04-27] MEDS: (Novolog) Insulin Aspart, Recombinant 100 u/ml 10 ml vial SC SCH ×4 (07:57→16:25)
[2018-04-27 08:21] LABS: INR 1.2; PROTHROMBIN TIME 13.5 SECONDS (9.7-12.2)
--- NOTE | 2018-04-27 08:37 | PN ---
Copied To: Dillan Menendez MD Attending MD: Dillan Menendez MD DATE: 04/26/2018 SUBJECTIVE: The patient is status post cardiac cath. She has obstruction. She is afebrile. No shortness of breath. No chest pain, on diuretics. Medical management. PHYSICAL EXAMINATION: VITAL SIGNS: Blood pressure 104/64, pulse 66, respiratory rate 20, temperature 98. LUNGS: Bilateral basal crepitations. CVS: S1, S2 regular. ABDOMEN: Soft. ASSESSMENT: 1. Congestive heart failure. 2. Ischemic cardiomyopathy with obstructive coronary artery disease. 3. Chronic obstructive pulmonary disease. 4. Diabetes. 5. Hypertension. PLAN: Medical management. Monitor the patient. Dillan Menendez MD
[2018-04-27 08:50] VITALS: RESP 20; O2SAT 98
--- NOTE | 2018-04-27 09:28 | CP.PCM.CON ---
History of Present Illness - History of Present Illness History of Present Illness: Vascular surgery consult note for Dr. Avalos Consulted for: lower leg ischemia Patient is a 77F with PMH of CAD with CABG x2, HTN, HLD, PAD, CKD, DM, CHF who is admitted for CAD and has a history of recent discoloration of her toes on her right leg and weakness. Patient denies any pain or wounds but that foot feels cool. Denies any numbness, tingling, fevers, chills, chest pain, or any other symptoms. Patient has known BL PAD with severely decreased KE on the right, moderate decrease in KE on the left, and abnormal PVR's starting in the iliac arteries BL. She currently takes ASA and plavix PMH: CAD with CABG x2, HTN, HLD, PAD, CKD, DM PSH: CABG, hysterectomy, cholecystectomy ALL: codeine Review of Systems - Review of Systems All systems: reviewed and no additional remarkable complaints except (as per HPI ) Past Patient History - Past Medical History & Family History Past Medical History?: Yes Past Family History: Reviewed and not pertinent - Past Social History Smoking Status: Former Smoker Alcohol: None - CARDIAC Hx Congestive Heart Failure: Yes Hx Hypertension: Yes - PULMONARY Hx Respiratory Disorders: No - NEUROLOGICAL Hx Neurological Disorder: No - HEENT Hx HEENT Problems: No - RENAL Hx Chronic Kidney Disease: No - ENDOCRINE/METABOLIC Hx Endocrine Disorders: Yes Hx Diabetes Mellitus Type 2: Yes - HEMATOLOGICAL/ONCOLOGICAL Hx Blood Disorders: No - INTEGUMENTARY Hx Dermatological Problems: No - MUSCULOSKELETAL/RHEUMATOLOGICAL Hx Musculoskeletal Disorders: No Hx Falls: No - GASTROINTESTINAL Hx Gastrointestinal Disorders: No - GENITOURINARY/GYNECOLOGICAL Hx Genitourinary Disorders: No - PSYCHIATRIC Hx Substance Use: No - SURGICAL HISTORY Hx Cholecystectomy: Yes Hx Coronary Artery Bypass Graft: Yes - ANESTHESIA Hx Anesthesia: Yes Hx Anesthesia Reactions: No Hx Malignant Hyperthermia: No Has any member of the family had a problem w/ anesthesia?: No Meds Allergies/Adverse Reactions: Allergies Allergy/AdvReac Type Severity Reaction Status Date / Time codeine Allergy Verified 04/22/18 14:29 - Medications Medications: Current Medications Acetaminophen (Tylenol 325mg Tab) 650 mg PO Q6 PRN PRN Reason: Pain, moderate (4-7) Last Admin: 04/25/18 13:03 Dose: 650 mg Al Hydrox/Mg Hydrox/Simethicone (Maalox Plus 30 Ml) 15 ml PO TID PRN PRN Reason: Indigestion / Heartburn Last Admin: 04/26/18 21:58 Dose: 15 ml Aspirin (Ecotrin) 81 mg PO DAILY [facility] Last Admin: 04/26/18 09:41 Dose: 81 mg Clopidogrel Bisulfate (Plavix) 75 mg PO DAILY [facility] Last Admin: 04/26/18 09:41 Dose: 75 mg Docusate Sodium (Colace) 100 mg PO TID [facility] Last Admin: 04/26/18 17:55 Dose: 100 mg Furosemide (Lasix) 20 mg PO DAILY [facility] Last Admin: 04/26/18 09:41 Dose: 20 mg Hydralazine HCl (Apresoline) 50 mg PO Q8 [facility] Last Admin: 04/27/18 06:47 Dose: Not Given Insulin Aspart (Novolog) [address] [facility] PRN Reason: Protocol Last Admin: 04/27/18 07:57 Dose: Not Given Insulin Glargine (Lantus) 10 unit SC [facility] Last Admin: 04/26/18 21:57 Dose: 10 units Metoprolol Tartrate (Lopressor) 25 mg PO BID [facility] Last Admin: 04/26/18 17:54 Dose: 25 mg Ondansetron HCl (Zofran Inj) 4 mg IVP Q4H PRN PRN Reason: Nausea/Vomiting Pantoprazole Sodium (Protonix Ec Tab) 40 mg PO DAILY [facility] Last Admin: 04/26/18 09:41 Dose: 40 mg Rosuvastatin Calcium (Crestor) 10 mg PO HS [facility] Last Admin: 04/26/18 21:57 Dose: 10 mg Zolpidem Tartrate (Ambien) 5 mg PO PRN PRN Reason: Insomnia Last Admin: 04/26/18 21:56 Dose: 5 mg Physical Exam - Constitutional Appears: Well, Non-toxic, No Acute Distress - Head Exam Head Exam: ATRAUMATIC, NORMOCEPHALIC - Eye Exam Eye Exam: Normal appearance. absent: Conjunctival injection, Scleral icterus - ENT Exam ENT Exam: Mucous Membranes Moist, Normal Oropharynx - Respiratory Exam Respiratory Exam: NORMAL BREATHING PATTERN. absent: Accessory Muscle Use, Respiratory Distress - Cardiovascular Exam Cardiovascular Exam: RRR - GI/Abdominal Exam GI & Abdominal Exam: Soft. absent: Distended, Tenderness - Extremities Exam Extremities exam: Negative for: calf tenderness, pedal edema Additional comments: right distal toes dark red/purple in color, cool to the touch with present but slow capillary refil. Small superficial ulceration in the second toe. Strong dopplerable signals on the right pedal pulses, slightly weaker than the left. Normal motor function of the feet BL. Left foot with strong dopplerable signals of the pedal pulses, normal color and warmth. Light sensation grossly intact in the toes BL - Neurological Exam Neurological exam: Alert, Oriented x3 - Psychiatric Exam Psychiatric exam: Normal Affect, Normal Mood - Skin Skin Exam: Dry, Normal Color, Warm Additional comments: except as noted in the foot exam Results - Vital Signs Recent Vital Signs: Last Vital Signs Temp 97.5 F L 04/27/18 07:25 Pulse 66 04/27/18 07:25 Resp 20 04/27/18 07:25 BP 122/72 04/27/18 07:25 Pulse Ox 98 04/27/18 07:25 - Labs Result Diagrams: 04/27/18 13:55 04/27/18 13:55 Labs: Laboratory Results - last 24 hr 04/26/18 04/26/18 04/26/18 06:22 12:02 14:15 WBC 14.0 H RBC 3.22 L Hgb 9.0 L Hct 27.1 L MCV 84.2 MCH 28.0 MCHC 33.3 RDW 15.0 H Plt Count 216 MPV 9.9 PT INR APTT Sodium Potassium Chloride Carbon Dioxide Anion Gap BUN Creatinine Est GFR ( Amer) Est GFR (Non-Af Amer) POC Glucose (mg/dL) 85 192 H Random Glucose Calcium 04/26/18 04/26/18 04/26/18 14:15 17:22 20:58 WBC RBC Hgb Hct MCV MCH MCHC RDW Plt Count MPV PT INR APTT Sodium 135 Potassium 3.7 Chloride 102 Carbon Dioxide 23 Anion Gap 13 BUN 47 H Creatinine 2.4 H Est GFR ( Amer) 24 Est GFR (Non-Af Amer) 20 POC Glucose (mg/dL) 112 H 183 H Random Glucose 141 H Calcium 8.5 L 04/27/18 04/27/18 04/27/18 06:22 06:46 08:06 WBC RBC Hgb Hct MCV MCH MCHC RDW Plt Count MPV PT 13.5 H INR 1.2 APTT 53 H Sodium 141 Potassium 3.7 Chloride 104 Carbon Dioxide 28 Anion Gap 12 BUN 41 H Creatinine 2.5 H Est GFR ( Amer) 23 Est GFR (Non-Af Amer) 19 POC Glucose (mg/dL) 87 Random Glucose 86 Calcium 8.2 L Assessment & Plan - Assessment and Plan (Free Text) Assessment: 77F with PAD with BL PAD and moderate ischemia of the right toes, severe CKD, and PAD Plan: Patient is not in immediate danger of irreversible damage of the right foot Patient has severe decrease in kidney function and this time and vascular intervention would likely cause further renal damage and lead to dialysis need patient is clear for discharge from a vascular surgery standpoint on ASA and plavix and follow up with Dr. Avalos so plan for angiocatheterization and possible angioplasty of the BL iliac occlusive disease once kidney function is improved Recommend close follow up with alligator shear operator and line staker as an outpatient Discussed and examined with Dr. Avalos, who agrees with above Janneth Polo, PGY2
[2018-04-27] MEDS: Pantoprazole 40 mg EC Tab PO SCH (10:04)
[2018-04-27 14:03] LABS: MEAN CELL VOLUME 85.6 fL (81.0-99.0); MEAN CORPUSCULAR HEMOGLOBIN 28.2 pg (27.0-31.0); MEAN CORPUSCULAR HGB CONC 32.9 g/dL (33.0-37.0); MEAN PLATELET VOLUME 9.9 fL (7.2-11.7); RBC 3.2 Mil/uL (3.80-5.20); RED CELL DISTRIBUTION WIDTH 14.9 % (11.5-14.5); WHITE BLOOD COUNT 12.7 K/uL (4.8-10.8)
--- NOTE | 2018-04-27 14:11 | PN ---
Copied To: Rosalino Schaefer MD Attending MD: Rosalino Schaefer MD DATE: 04/27/2018 LOCATION: 660, bed A. SUBJECTIVE: This is a 77-year-old female seen and examined in rounds early in the morning without significant clinical changes, without reported active bleeding, had been on IV heparin drip with intermittent period of slight abdominal pain and lower extremities pain. No actual chest pain, palpitation or significant shortness of breath. The entire chart is reviewed including but not limited to most recent lab and radiology study results, current and the previous medication list, current and the previous medical events, and the patient is still having low hemoglobin and hematocrit with increased PT and PTT with BUN of 41, creatinine 2.5, calcium 8.2. PHYSICAL EXAMINATION: GENERAL: A 77-year-old female. VITAL SIGNS: Afebrile with pulse of 62, respiratory rate 20 to 22, blood pressure 118/70. HEENT: Showed pale, dry oral mucous membrane. Nonicteric sclerae. LUNGS: Few scattered crepitation. Decreased air entry at bases. HEART: Positive S1 and S2. ABDOMEN: Soft with mild generalized tenderness. No mass or organomegaly. No rebound tenderness or guarding. RECTAL: The patient refused. EXTREMITIES: With lower extremities discoloration NEUROLOGICAL: No reported new neurological deficits, sensory or motor. IMPRESSION: 1. Anemia, to rule out gastrointestinal blood loss upper versus lower versus anemia secondary to chronic disease. 2. Rule out occult gastrointestinal malignancy. 3. Known history of but not limited to myocardial infarction before with history of cardiac valvular surgery, history of hypertension, congestive heart failure, coronary artery disease with status post coronary artery bypass graft. 4. Status post cholecystectomy by history. 5. Peripheral vascular disease with lower extremities discoloration. The possibility of fat emboli was raised. SUGGESTIONS: 1. Continue current management. 2. Surgical reevaluation. 3. No aggressive GI workup in the meantime until the patient is much more stable clinically from the cardiology point of view. 4. Follow up in cancer markers. Repeat stool for occult blood. 5. Further recommendation to follow. Rosalino Schaefer MD [facility] # [id number]
[2018-04-27 14:24] LABS: CALCIUM 8.6 mg/dl (8.6-10.4)
--- NOTE | 2018-04-27 15:41 | CP.PCM.PN ---
Subjective - Date & Time of Evaluation Date of Evaluation: 04/27/18 Time of Evaluation: 15:41 - Subjective Subjective: pt is seen and examined, follow up consult is dictated #[id number] increase lasix to 20 mg po bid, add nephrocaps 1 tab po qd, epogen 81369 units sc x1 Objective - Vital Signs/Intake and Output Vital Signs (last 24 hours): Temp Pulse Resp BP Pulse Ox 97.5 F L 57 L 20 125/76 98 04/27/18 07:25 04/27/18 12:08 04/27/18 07:25 04/27/18 10:04 04/27/18 07:25 Intake and Output: 04/27/18 04/27/18 06:59 18:59 Intake Total 311.6 Balance 311.6 - Medications Medications: Current Medications Acetaminophen (Tylenol 325mg Tab) 650 mg PO Q6 PRN PRN Reason: Pain, moderate (4-7) Last Admin: 04/25/18 13:03 Dose: 650 mg Al Hydrox/Mg Hydrox/Simethicone (Maalox Plus 30 Ml) 15 ml PO TID PRN PRN Reason: Indigestion / Heartburn Last Admin: 04/26/18 21:58 Dose: 15 ml Aspirin (Ecotrin) 81 mg PO DAILY [facility] Last Admin: 04/27/18 10:04 Dose: 81 mg Clopidogrel Bisulfate (Plavix) 75 mg PO DAILY [facility] Last Admin: 04/27/18 10:04 Dose: 75 mg Docusate Sodium (Colace) 100 mg PO TID [facility] Last Admin: 04/27/18 13:50 Dose: 100 mg Furosemide (Lasix) 20 mg PO DAILY [facility] Last Admin: 04/27/18 10:04 Dose: 20 mg Heparin Sodium (Porcine) (Heparin) 5,000 units SC Q12H [facility] Hydralazine HCl (Apresoline) 50 mg PO Q8 [facility] Last Admin: 04/27/18 13:50 Dose: 50 mg Insulin Aspart (Novolog) 0 unit SC [facility] PRN Reason: Protocol Last Admin: 04/27/18 12:41 Dose: 2 units Insulin Glargine (Lantus) 10 unit SC HS [facility] Last Admin: 04/26/18 21:57 Dose: 10 units Metoprolol Tartrate (Lopressor) 25 mg PO BID [facility] Last Admin: 04/27/18 10:04 Dose: 25 mg Ondansetron HCl (Zofran Inj) 4 mg IVP Q4H PRN PRN Reason: Nausea/Vomiting Pantoprazole Sodium (Protonix Ec Tab) 40 mg PO DAILY [facility] Last Admin: 04/27/18 10:04 Dose: 40 mg Rosuvastatin Calcium (Crestor) 10 mg PO HS [facility] Last Admin: 04/26/18 21:57 Dose: 10 mg Zolpidem Tartrate (Ambien) 5 mg PO HS PRN PRN Reason: Insomnia Last Admin: 04/26/18 21:56 Dose: 5 mg - Labs Labs: 04/27/18 13:55 04/27/18 13:55 PT 13.5 SECONDS (9.7-12.2) H 04/27/18 08:06 INR 1.2 04/27/18 08:06 APTT 53 SECONDS (21-34) H 04/27/18 08:06
--- NOTE | 2018-04-27 16:15 | PCM.HF ---
Heart Failure Core Measure - Heart Failure Ejection Fraction: Less Than 40 % (35-40) TATIANA Inhibitor Prescribed: Yes Beta-Sonya Prescribed: Metoprolol Succinate Hydralazine Nitrate Prescribed: Yes
--- NOTE | 2018-04-27 16:18 | PCM.HF ---
Heart Failure Core Measure - Heart Failure Ejection Fraction: Less Than 40 % (EF 35-40%) TATIANA Inhibitor Prescribed: No Contraindication/Reason for not providing: ON ARB Beta-Sonya Prescribed: Metoprolol Succinate Angiotensin II Receptor Sonya Prescribed: Yes AnticoagulationTherapy for Atrial Fibrillation/Atrialflutter: No Contraindication/Reason for not providing: no afib Aldosterone Antagonist Prescribed: No Contraindication/Reason for not providing: bp low Hydralazine Nitrate Prescribed: Yes Implantable Cardioverter Defibrillator Therapy: No Contraindication/Reason for not providing: will be evaluated by the cardiologyst Cardiac Resynchronization Therapy Prescribed: No Contraindication/Reason for not providing: not indicated - Follow up Will be discharged to: Home Follow Up Date (must be within 7 days from discharge): 05/02/18 Follow Up Time: 09:00
--- NOTE | 2018-04-27 16:27 | CP.PCM.PN ---
Subjective - Date & Time of Evaluation Date of Evaluation: 04/27/18 Time of Evaluation: 11:00 - Subjective Subjective: alert, awake, no sob or chest pains, NAD. Objective - Vital Signs/Intake and Output Vital Signs (last 24 hours): Temp Pulse Resp BP Pulse Ox 97.5 F L 57 L 20 125/76 98 04/27/18 07:25 04/27/18 12:08 04/27/18 07:25 04/27/18 10:04 04/27/18 07:25 Intake and Output: 04/27/18 04/27/18 06:59 18:59 Intake Total 311.6 310 Balance 311.6 310 - Medications Medications: Current Medications Acetaminophen (Tylenol 325mg Tab) 650 mg PO Q6 PRN PRN Reason: Pain, moderate (4-7) Last Admin: 04/25/18 13:03 Dose: 650 mg Al Hydrox/Mg Hydrox/Simethicone (Maalox Plus 30 Ml) 15 ml PO TID PRN PRN Reason: Indigestion / Heartburn Last Admin: 04/26/18 21:58 Dose: 15 ml Aspirin (Ecotrin) 81 mg PO DAILY [facility] Last Admin: 04/27/18 10:04 Dose: 81 mg Clopidogrel Bisulfate (Plavix) 75 mg PO DAILY [facility] Last Admin: 04/27/18 10:04 Dose: 75 mg Docusate Sodium (Colace) 100 mg PO TID [facility] Last Admin: 04/27/18 13:50 Dose: 100 mg Furosemide (Lasix) 20 mg PO DAILY [facility] Last Admin: 04/27/18 10:04 Dose: 20 mg Heparin Sodium (Porcine) (Heparin) 5,000 units SC Q12H [facility] Hydralazine HCl (Apresoline) 50 mg PO Q8 [facility] Last Admin: 04/27/18 13:50 Dose: 50 mg Insulin Aspart (Novolog) 0 unit SC [facility] PRN Reason: Protocol Last Admin: 04/27/18 12:41 Dose: 2 units Insulin Glargine (Lantus) 10 unit SC HS [facility] Last Admin: 04/26/18 21:57 Dose: 10 units Metoprolol Tartrate (Lopressor) 25 mg PO BID [facility] Last Admin: 04/27/18 10:04 Dose: 25 mg Ondansetron HCl (Zofran Inj) 4 mg IVP Q4H PRN PRN Reason: Nausea/Vomiting Pantoprazole Sodium (Protonix Ec Tab) 40 mg PO DAILY [facility] Last Admin: 04/27/18 10:04 Dose: 40 mg Rosuvastatin Calcium (Crestor) 10 mg PO HS [facility] Last Admin: 04/26/18 21:57 Dose: 10 mg Zolpidem Tartrate (Ambien) 5 mg PO HS PRN PRN Reason: Insomnia Last Admin: 04/26/18 21:56 Dose: 5 mg - Labs Labs: 04/27/18 13:55 04/27/18 13:55 PT 13.5 SECONDS (9.7-12.2) H 04/27/18 08:06 INR 1.2 04/27/18 08:06 APTT 53 SECONDS (21-34) H 04/27/18 08:06 Assessment and Plan - Assessment and Plan (Free Text) Assessment: Patient admitted with unstable angina, s/p cardiac catheterization, seen and examined. No sob or chest pains. Has chronic renal insufficiency. Discussed with DR Menendez and DR Barnes. Plan to discharge home on medical management and advised to come to the office to do further tests.
[2018-04-27 16:28] VITALS: BP 145/70; PULSE 67; TEMP 97.8
[2018-04-27] MEDS ORDERED: EPOETIN ALFA 10,000 UNIT/ML ML SC ONE (16:43)
--- NOTE | 2018-04-27 21:35 | PN ---
Copied To: Anthony Garrett MD Attending MD: Anthony Garrett MD DATE: 04/27/2018 FOLLOWUP RENAL CONSULTATION LOCATION: The patient is located in room 660 A. REASON FOR RENAL CONSULTATION: CKD 4, for further evaluation. HISTORY OF PRESENT ILLNESS: Mrs. Holland is a 77-year-old elderly female with a past medical history significant for longstanding hypertension, diabetes, hyperlipidemia, chronic kidney disease, coronary artery disease, status post CABG, status post stents placement twice who was admitted for cardiac cath. Subsequently, the patient underwent cardiac cath and was found to have patent coronaries with perfusion, recommending medical management at this time and also found to have severe PAD. The patient denies any chest pain or palpitation. Denies any fever or cough. No abdominal pain. No nausea, vomiting, or diarrhea. PHYSICAL EXAMINATION: VITAL SIGNS: As follows: Blood pressure 145/70, pulse 67, respirations 20, temperature 97.8, saturation 98%. Height 5 feet 4 inches, weight is 187 pounds. GENERAL: Mrs. Holland is a 77-year-old elderly female, moderately built, moderately nourished, not in distress. HEENT: Pupils normal and reactive to light and accommodation. Conjunctivae pink. Sclerae anicteric. Tongue is moist. Trachea is midline. LUNGS: Symmetric on both sides. Bilateral breath sounds present. The patient has crackles on the right lower base. Left lung is clear. CVS: [place] at the fifth intercostal space, midclavicular line. S1, S2 audible. No murmur, no gallop. The patient also has a midsternal scar present from the previous CABG. ABDOMEN: Soft, tympanitic. No guarding. No rigidity. No hepatosplenomegaly. MANAGER OF LOSS PREVENTION OPERATIONS: The patient is alert, awake, and oriented x3. Nonfocal neuro examination. Cranial nerves II through XII grossly intact. Sensory and motor system is within normal limits. EXTREMITIES: No cyanosis, no clubbing, no edema. SKIN: Warm to touch in both lower extremities. CURRENT MEDICATIONS: Include as follows: Ambien 5 mg at bedtime, hydralazine 50 mg p.o. every 8 hours, Colace 100 mg p.o. t.i.d., Crestor 10 mg at bedtime, aspirin 81 mg daily, subcu heparin 5000 units every 12 hours, Lantus 10 units subcu at bedtime, Lasix 20 mg p.o. daily, metoprolol 25 mg p.o. b.i.d., Plavix 75 mg daily, Protonix 40 mg p.o. daily, Tylenol, and Zofran 4 mg IV every 4 hours p.r.n. LABORATORY DATA: Include as follows: As of 04/27/2018, WBC 12.7, hemoglobin 9, hematocrit is 27.4, platelets 252. Sodium 140, potassium 4.3, chloride 100, CO2 of 30, BUN 38, creatinine 2.4, glucose 191, calcium 8.6. IMPRESSION: In summary, Mrs. Holland is a 77-year-old elderly female with a history of hypertension, diabetes, hyperlipidemia, coronary artery disease, status post coronary artery bypass graft, status post stents and peripheral vascular disease, chronic kidney disease with unilateral small kidney, status post cardiac catheterization. 1. Chronic kidney disease 4, most likely secondary to hypertensive nephrosclerosis, cannot rule out renovascular disease secondary to atherosclerosis. Renal function is stable cardiac cath. Continue to monitor renal function as an outpatient. 2. Hypertension. Blood pressure is stable. Continue hydralazine and metoprolol. 3. Anemia, most likely secondary to chronic kidney disease, rule out iron-deficiency anemia. Consider Nephrocaps 1 tablet p.o. daily. 4. Coronary artery disease, status post coronary artery bypass graft, and status post cardiac cath with perfusion. Follow up with Cardiology, and also continue Lasix 20 mg b.i.d. Restrict fluids to 1 liter per day. We will follow with you. Thank you for allowing me to participate in your patient's care. The patient can be followed as an outpatient in 1 month. Anthony Garrett MD
--- NOTE | 2018-04-27 22:29 | CP.PCM.DIS ---
Provider - Provider Date of Admission: 04/22/18 15:43 Attending physician: Dillan Menendez MD Hospital Course - Lab Results Lab Results: Micro Results 04/26/18 06:43 Naris MRSA Culture - Final MRSA NOT DETECTED 04/26/18 06:41 Urine Urine Culture - Final No Growth (<1,000 CFU/ML) 04/23/18 08:31 Blood-Thru Central Line Blood Culture - Preliminary NO GROWTH AFTER 3 DAYS 04/23/18 08:31 Blood-Thru Central Line Blood Culture - Preliminary NO GROWTH AFTER 3 DAYS 04/24/18 01:09 Urine,Guzman Urine Culture - Final No Growth (<1,000 CFU/ML) 04/23/18 06:00 Nose MRSA Culture (Admit) - Final MRSA NOT DETECTED Most Recent Lab Values WBC 12.7 K/uL (4.8-10.8) H 04/27/18 13:55 RBC 3.20 Mil/uL (3.80-5.20) L 04/27/18 13:55 Hgb 9.0 g/dL (11.0-16.0) L 04/27/18 13:55 Hct 27.4 % (34.0-47.0) L 04/27/18 13:55 MCV 85.6 fL (81.0-99.0) 04/27/18 13:55 MCH 28.2 pg (27.0-31.0) 04/27/18 13:55 MCHC 32.9 g/dL (33.0-37.0) L 04/27/18 13:55 RDW 14.9 % (11.5-14.5) H 04/27/18 13:55 Plt Count 252 K/uL (130-400) 04/27/18 13:55 MPV 9.9 fL (7.2-11.7) 04/27/18 13:55 Neut % (Auto) 82.9 % (50.0-75.0) H 04/25/18 03:01 Lymph % (Auto) 11.4 % (20.0-40.0) L 04/25/18 03:01 Rock % (Auto) 4.5 % (0.0-10.0) 04/25/18 03:01 Eos % (Auto) 0.1 % (0.0-4.0) 04/25/18 03:01 Baso % (Auto) 1.1 % (0.0-2.0) 04/25/18 03:01 Neut # (Auto) 16.1 K/uL (1.8-7.0) H 04/25/18 03:01 Lymph # (Auto) 2.2 K/uL (1.0-4.3) 04/25/18 03:01 Rock # (Auto) 0.9 K/uL (0.0-0.8) H 04/25/18 03:01 Eos # (Auto) 0.0 K/uL (0.0-0.7) 04/25/18 03:01 Baso # (Auto) 0.2 K/uL (0.0-0.2) 04/25/18 03:01 PT 13.5 SECONDS (9.7-12.2) H 04/27/18 08:06 INR 1.2 04/27/18 08:06 APTT 53 SECONDS (21-34) H 04/27/18 08:06 Puncture Site Rb 04/23/18 23:57 pCO2 35 mm/Hg (35-45) 04/23/18 23:57 pO2 83 mm/Hg (80-100) 04/23/18 23:57 HCO3 21.5 mmol/L (21-28) 04/23/18 23:57 ABG pH 7.37 (7.35-7.45) 04/23/18 23:57 ABG Total CO2 21.3 mmol/L (22-28) L 04/23/18 23:57 ABG O2 Saturation 98.3 % (95-98) H 04/23/18 23:57 ABG Base Excess -4.4 mmol/L (-2.0-3.0) L 04/23/18 23:57 Dinesh Test Na 04/23/18 23:57 ABG Potassium 3.2 mmol/L (3.6-5.2) L 04/23/18 23:57 Sodium 136.0 mmol/l (132-148) 04/23/18 23:57 Chloride 102.0 mmol/L (98-107) 04/23/18 23:57 Glucose 263 mg/dl (65-105) H 04/23/18 23:57 Lactate 2.0 mmol/L (0.7-2.1) 04/23/18 23:57 Liter Flow 2.0 04/23/18 23:57 Sodium 140 mmol/L (132-148) 04/27/18 13:55 Potassium 4.3 mmol/L (3.6-5.2) 04/27/18 13:55 Chloride 100 mmol/L (98-107) 04/27/18 13:55 Carbon Dioxide 30 mmol/L (22-30) 04/27/18 13:55 Anion Gap 14 (10-20) 04/27/18 13:55 BUN 38 mg/dL (7-17) H 04/27/18 13:55 Creatinine 2.4 mg/dL (0.7-1.2) H 04/27/18 13:55 Est GFR ( Amer) 24 04/27/18 13:55 Est GFR (Non-Af Amer) 20 04/27/18 13:55 POC Glucose (mg/dL) 113 mg/dL (65-110) H 04/27/18 16:06 Random Glucose 191 mg/dL (65-105) H 04/27/18 13:55 Calcium 8.6 mg/dl (8.6-10.4) 04/27/18 13:55 Phosphorus 3.7 mg/dL (2.5-4.5) 04/25/18 03:01 Magnesium 1.9 mg/dL (1.6-2.3) 04/25/18 03:01 Total Bilirubin 0.3 mg/dL (0.2-1.3) 04/25/18 03:01 AST 228 U/L (14-36) H D 04/25/18 03:01 ALT 37 U/L (9-52) 04/25/18 03:01 Alkaline Phosphatase 62 U/L (38-126) 04/25/18 03:01 Total Creatine Kinase 53 U/L (30-135) 04/23/18 21:11 CK-MB (Mass) 0.95 ng/mL (0.0-3.38) 04/23/18 21:11 Troponin I 0.0540 ng/mL (0.00-0.120) 04/23/18 21:11 NT-Pro-B Natriuret Pep 2940 pg/mL (0-900) H 04/22/18 15:53 Total Protein 6.7 g/dL (6.3-8.3) 04/25/18 03:01 Albumin 3.3 g/dL (3.5-5.0) L 04/25/18 03:01 Globulin 3.3 gm/dL (2.2-3.9) 04/25/18 03:01 Albumin/Globulin Ratio 1.0 (1.0-2.1) 04/25/18 03:01 Procalcitonin < 0.05 NG/ML (0.19-0.49) L 04/23/18 21:11 Arterial Blood Potassium 3.2 mmol/L (3.6-5.2) L 04/23/18 23:57 Urine Color Straw (YELLOW) 04/26/18 06:41 Urine Clarity Clear (Clear) 04/26/18 06:41 Urine pH 5.0 (5.0-8.0) 04/26/18 06:41 Ur Specific [place] 1.009 (1.003-1.030) 04/26/18 06:41 Urine Protein Negative mg/dL (NEGATIVE) 04/26/18 06:41 Urine Glucose (UA) Normal mg/dL (Normal) 04/26/18 06:41 Urine Ketones Negative mg/dL (NEGATIVE) 04/26/18 06:41 Urine Blood Negative (NEGATIVE) 04/26/18 06:41 Urine Nitrate Negative (NEGATIVE) 04/26/18 06:41 Urine Bilirubin Negative (NEGATIVE) 04/26/18 06:41 Urine Urobilinogen Normal mg/dL (0.2-1.0) 04/26/18 06:41 Ur Leukocyte Esterase Neg Lula/uL (Negative) 04/26/18 06:41 Urine WBC (Auto) < 1 /hpf (0-5) 04/26/18 06:41 Urine RBC (Auto) 1 /hpf (0-3) 04/26/18 06:41 Ur Squamous Epith Cells 2 /hpf (0-5) 04/26/18 06:41 Urine Bacteria Rare (<OCC) 04/26/18 06:41 Hyaline Casts 3-5 /lpf (0-2) H 04/22/18 15:42 Discharge Exam - Head Exam Head Exam: ATRAUMATIC, NORMOCEPHALIC Discharge Plan - Follow Up Plan Condition: STABLE Disposition: HOSPICE - HOME Instructions: Heart Healthy Diet, Heart Failure, Adult (DC), Angina (DC) Additional Instructions: Discharge home as per Dr Menendez, follow up with Dr Menendez in 1 week. Return to the Emergency Room if symptoms persist. Referrals: Dillan Menendez MD [Staff Provider] -
[2018-04-28] MEDS ORDERED: Multivitamin Vitamin B Complex (Nephro-Vite) Tab PO SCH (08:00)
--- NOTE | 2018-04-28 20:56 | CARDCATH ---
Copied To: Kenny Brewer MD Attending MD: Kenny Brewer MD PROCEDURE DATE: 04/23/2018 PROCEDURES: 1. Left heart catheterization. 2. Coronary angiogram. 3. Saphenous vein graft angiogram. 4. Left internal mammary artery graft angiogram. 5. Abdominal and bilateral iliac artery angiogram. REFERRING PHYSICIANS: 1. Dillan Menendez MD. 2. Elias vAalos Jr., MD PERFORMING PHYSICIAN: Kenny Brewer MD CLINICAL INDICATIONS: 1. Chest pain. 2. Hypertension. 3. Dyspnea. 4. Hyperlipidemia. 5. Diabetes. 6. Chronic kidney disease stage 4. 7. Severe peripheral arterial disease with critical limb ischemia. PROCEDURE: After informed consent, the patient was prepped and draped in the usual sterile fashion. 2% lidocaine was given in the right groin for local anesthesia. Using micropuncture technique, a 6-[place] sheath was introduced in the right common femoral artery. A JL4 6-[place]ian diagnostic catheter engaged into left main coronary artery. Contrast injected and a left coronary angiogram was done. A JR4 6-[place] diagnostic catheter crossed into left ventricle. LV end-diastolic pressure measured. LV angiogram was not done due to stage 4 kidney disease; however, the LV end-diastolic pressure and the pressure gradient across the aortic valve was measured. JR4 catheter was pulled back into the aorta. A catheter was engaged into the right coronary artery. Contrast injected and right coronary angiogram was done. Then the same catheter engaged into saphenous vein graft angiogram to right coronary artery. Contrast injected and saphenous vein graft angiogram was done. IM catheter engaged into the left internal mammary artery graft. Contrast injected and graft angiogram was done. Aortic root angiogram was done to demonstrate if any additional grafts were present. A 6-[place] pigtail catheter was parked in distal abdominal aorta. Contrast injected. Distal abdominal aortic angiogram and bilateral iliac artery angiogram was performed. The patient tolerated the procedure well. Radiological supervision and radiological interpretation of the coronary imaging and peripheral arterial angiography imaging was done. FINDINGS: 1. Left main coronary artery has 60% stenosis. 2. Left circumflex is totally occluded. 3. Left anterior descending coronary artery has diffuse 90% to 99% stenotic lesion in the proximal as well as the mid LAD territory. 4. Diagonal branches have diffuse disease. 5. Right coronary artery is totally occluded in the proximal portion. 6. SVG graft to RCA is patent. 7. STAHL to LAD is patent. 8. No additional grafts were seen. 9. Bilateral iliac artery angiogram has confirmed critical bilateral iliac artery disease. IMPRESSION: 1. Single coronary artery disease as described above, but both RCA and LAD grafts are patent. 2. Elevated LV end-diastolic pressure of 27. No gradient across the aortic valve. 3. Severe bilateral peripheral arterial disease. PLAN: 1. Medical management for coronary artery disease and systolic heart failure. 2. Since the patient has critical limb ischemia, the bilateral peripheral angiogram results were discussed with Dr. Avalos who is going to follow up vascular care for this patient. Kenny Brewer MD
--- NOTE | 2018-04-29 07:33 | DS ---
Copied To: Dillan Menendez MD Attending MD: Dillan Menendez MD ADMISSION DIAGNOSIS: Chest pain. DISCHARGE DIAGNOSES: Coronary artery disease, congestive heart failure, diabetes, hypertension, hyperlipidemia. HISTORY OF PRESENT ILLNESS: This is a 77-year-old female with history of diabetes, hypertension, hyperlipidemia, coronary artery disease, status post CABG 16 years ago who was admitted for cardiac catheterization. She was admitted. She was seen by Renal, Cardio, and then she underwent cardiac catheterization which showed obstructive coronary artery disease, and she was advised medical management. The patient is afebrile. She is feeling better. Post cardiac cath, she developed intractable nausea and vomiting, but she felt better. WBC 12.7, hemoglobin 9, hematocrit 27.4, platelets 252. Sodium 140, potassium 4.3, chloride 100, bicarb 30, BUN 30, creatinine 2.4. CONDITION UPON DISCHARGE: Stable. She will be followed up as outpatient. Dillan Menendez MD
--- NOTE | 2018-04-29 10:21 | CON ---
Copied To: Rosalino Schaefer MD Attending MD: Rosalino Schaefer MD DATE: 04/25/[address] Schaefer to Dr. Shon Grimaldo. I was called for GI consultation by the admitting MD. The patient was seen and fully examined on 04/25/2018 as requested by the admitting MD in the presence of her family member. The entire chart is reviewed including but not limited to most recent lab and radiology study results, current and the previous medication list, current and the previous medical events, allergy to medication list as well as all the available current and the previous medical records. Case discussed with the staff at length. HISTORY OF PRESENT ILLNESS: This is a 77-year-old female who was admitted through the ER for potential cardiac case with a complaint of severe crampy abdominal pain, dyspepsia, nausea with constipation, with generalized weakness and malaise. Had an episode of chest pain recently, none now. PAST MEDICAL HISTORY: Including but not limited to: 1. Hypertension. 2. Coronary artery disease with status post CABG. 3. Peptic ulcer disease. 4. Congestive heart failure. 5. Status post cholecystectomy. FAMILY HISTORY: Unknown. SOCIAL HISTORY: No known recent history of cigarette smoking or alcohol intake. ALLERGIES TO MEDICATIONS: UNKNOWN. CURRENT MEDICATIONS: Medication list post-admission reviewed. LABORATORY DATA: After being admitted to the hospital, the patient was found to have leukocytosis of 11.6 with subsequent drop of hemoglobin and hematocrit with BUN 45 and creatinine 2.1. Blood glucose level 164 with potassium 5.5. PHYSICAL EXAMINATION: GENERAL: A 77-year-old female appeared to be awake, alert, oriented, complaining of crampy midepigastric and midabdominal line pain. VITAL SIGNS: Afebrile with pulse of 60, respiratory rate 20 to 22 with blood pressure 150/84. HEENT: Showed mildly pale, dry oral mucous membrane. Nonicteric sclerae. LYMPH NODES: No lymphadenitis or lymphadenopathy. LUNGS: Few scattered crepitation with decreased air entry at bases. HEART: Positive S1 and S2. ABDOMEN: Soft with generalized tenderness with slight distention. No mass or organomegaly. No rebound tenderness or guarding. RECTAL: Deferred due to the patient's recent history of chest pain. EXTREMITIES: Slight lower extremity edematous changes. No clubbing or cyanosis. NEUROLOGICAL: No reported new neurological deficits, sensory, or motor. No reported new focal deficits. IMPRESSION: 1. Re-exacerbation of peptic ulcer disease. 2. Change of bowel movement habit of unclear etiology, to rule out possible fecal impaction, to rule out lower gastrointestinal tract occult malignancy. 3. Past medical history as mentioned above including hypertension, congestive heart failure, coronary artery disease, status post coronary artery bypass graft with status post cholecystectomy. 4. To rule out an early phase of acute pancreatitis. SUGGESTIONS: 1. Agree with your plan. 2. Proton pump inhibitors IV. 3. Dulcolax p.o. 10 mg once a day in the meantime. 4. Serum lipase, amylase level. 5. Abdominal ultrasound with biliary tree and pancreas. 6. Cancer markers again including CEA and CA19-9. 7. Further recommendation to follow. Thank you for letting me participate in your patient's case management and endoscopic evaluation of the upper and lower GI tract to be considered only when the patient's cardiac status is more stable. We will follow up closely with you. Rosalino Schaefer MD
== END 2018-04-27 16:15 | disposition hospice, home (50) | DRG 287 ==
LOC: C.ER 14:18 → C.9E 15:43 → C.6T 17:07 → C.9I 04-23 21:06 → C.6T 04-26 05:25
PROVIDERS: ADMIT Internal Medicine; ATTEND Internal Medicine
PROC: 4A023N7 Measurement of Cardiac Sampling and Pressure, Left Heart, Percutaneous Approach (ICD-10-PCS; principal; 2018-04-23)
PROC: B2111ZZ Fluoroscopy of Multiple Coronary Arteries using Low Osmolar Contrast (ICD-10-PCS; 2018-04-23)
PROC: B2151ZZ Fluoroscopy of Left Heart using Low Osmolar Contrast (ICD-10-PCS; 2018-04-23)
PROC: B2121ZZ Fluoroscopy of Single Coronary Artery Bypass Graft using Low Osmolar Contrast (ICD-10-PCS; 2018-04-23)
PROC: B2181ZZ Fluoroscopy of Left Internal Mammary Bypass Graft using Low Osmolar Contrast (ICD-10-PCS; 2018-04-23)
PROC: B41DZZZ Fluoroscopy of Aorta and Bilateral Lower Extremity Arteries (ICD-10-PCS; 2018-04-23)
DX: I25.110 Atherosclerotic heart disease of native coronary artery with unstable angina pectoris (principal); I13.0 Hypertensive heart and chronic kidney disease with heart failure and stage 1 through stage 4 chronic kidney disease, or unspecified chronic kidney disease; N17.9 Acute kidney failure, unspecified; N18.4 Chronic kidney disease, stage 4 (severe); I50.42 Chronic combined systolic (congestive) and diastolic (congestive) heart failure; I11.0 Hypertensive heart disease with heart failure; I25.82 Chronic total occlusion of coronary artery; E11.22 Type 2 diabetes mellitus with diabetic chronic kidney disease; E11.51 Type 2 diabetes mellitus with diabetic peripheral angiopathy without gangrene; I25.5 Ischemic cardiomyopathy; J44.9 Chronic obstructive pulmonary disease, unspecified; I95.81 Postprocedural hypotension; K27.9 Peptic ulcer, site unspecified, unspecified as acute or chronic, without hemorrhage or perforation; D72.829 Elevated white blood cell count, unspecified; D63.1 Anemia in chronic kidney disease; N27.0 Small kidney, unilateral; E78.5 Hyperlipidemia, unspecified; Z79.4 Long term (current) use of insulin; I25.2 Old myocardial infarction; Z95.1 Presence of aortocoronary bypass graft; Z95.5 Presence of coronary angioplasty implant and graft; Z87.891 Personal history of nicotine dependence; Z79.02 Long term (current) use of antithrombotics/antiplatelets; Z87.11 Personal history of peptic ulcer disease; Z90.710 Acquired absence of both cervix and uterus; Z90.49 Acquired absence of other specified parts of digestive tract; Z79.82 Long term (current) use of aspirin